=== PATIENT | female | born 1960 | race Caucasian/White ===

== ENCOUNTER 2016-04-30 13:58 | Inpatient (IN) | payer OTHER ==
[~2016-04-30] VITALS: Ht 162.6 cm; Wt 82.0 kg
--- NOTE | 2016-04-30 14:56 | EMERGENCY ROOM VISIT NOTE ---
History Report prepared by Rey: Jaci Metcalf Under the Supervision of: Dr. Arash Gibbs M.D. First contact with patient: 14:32 Chief Complaint: MENTAL HEALTH EVALUATION Stated Complaint: MENTAL HEALTH EVALUATION History of Present Illness The patient is a 55 year old female who presents to the Emergency Room with for worsening aggression starting 1 day [employer]. The patient's mother called police last night and states that the patient was threaten to throw things at her. The mother states that the patient is paranoid and believes that she has been poisoning the patient. The patient states that she currently does not take any medications knowingly but states occasionally she tastes them in her food but does not know how it gets into her food. The patient denies seeing a psychiatrist regularly. The patient denies any suicidal or homicidal ideation. Nursing staff state the patient has been seen for similar symptoms in the past at the ED. The patient denies any other pain or symptoms. 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 Review of Systems See HPI for pertinent positives & negatives. A total of 10 systems reviewed and were otherwise negative. Past Medical & Surgical Medical Problems: (1) Anxiety and depression (2) Diabetes (3) Nicotine dependence (4) Unspecified psychosis Family History Diabetes mellitus Hypertension Social History Smoking Status: Never Smoker Alcohol Use: occasionally Drug Use: none Marital Status: Housing Status: lives with family Occupation Status: disabled Current/Historical Medications No Active Prescriptions or Reported Meds Allergies Coded Allergies: No Known Allergies (Unverified , 06/09/15) Physical Exam Vital Signs Date Time Temp Pulse Resp B/P Pulse Ox O2 Delivery O2 Flow Rate FiO2 04/30/16 16:42 77 18 145/92 99 Room Air 04/30/16 14:01 37.0 76 20 146/88 100 Room Air Physical Exam GENERAL: Patient is a healthy-appearing well-nourished HEAD: Normocephalic atraumatic EYES: Ocular movements intact pupils equal and react to light OROPHARYNX mucous membranes are moist no exudates present no erythema or edema present NECK: Supple no nuchal rigidity CHEST: Good equal expansion LUNGS: Clear and equal to auscultation CARDIAC: Normal S1 and S2 ABDOMEN: Soft nontender no guarding BACK: No CVA tenderness EXTREMITIES: No pain upon palpation normal muscle strength in all groups no clubbing cyanosis or edema NEURO: Patient is following commands is answering questions appropriately. Alert and oriented x3 Cranial Nerves 2-12 grossly intact Psych: Acutely paranoid. Medical Decision & Procedures Laboratory Results 04/30/16 15:05 Red Blood Count 4.99, Mean Corpuscular Volume 90.8, Mean Corpuscular Hemoglobin 32.5, Mean Corpuscular Hemoglobin Concent 35.8, Mean Platelet Volume 11.2, Neutrophils (%) (Auto) 59.9, Lymphocytes (%) (Auto) 31.5, Monocytes (%) (Auto) 6.2, Eosinophils (%) (Auto) 1.0, Basophils (%) (Auto) 0.7, Neutrophils # (Auto) 3.65, Lymphocytes # (Auto) 1.92, Monocytes # (Auto) 0.38, Eosinophils # (Auto) 0.06, Basophils # (Auto) 0.04 04/30/16 15:05 Test 04/30/16 14:44 04/30/16 15:05 Urine Color DK YELLOW Urine Appearance CLEAR (CLEAR) Urine pH 5.5 (4.5-7.5) Urine Specific [place] 1.027 (1.000-1.030) Urine Protein TRACE (NEG) Urine Glucose (UA) NEG (NEG) Urine Ketones TRACE (NEG) Urine Occult Blood 1+ (NEG) Urine Nitrite NEG (NEG) Urine Bilirubin NEG (NEG) Urine Urobilinogen NEG (NEG) Urine Leukocyte Esterase NEG (NEG) Urine WBC (Auto) 1-5 /hpf (0-5) Urine RBC (Auto) 5-10 /hpf (0-4) Urine Hyaline Casts (Auto) 5-10 /lpf (0-5) Urine Epithelial Cells (Auto) >30 /lpf (0-5) Urine Bacteria (Auto) 1+ (NEG) Urine Opiates Screen NEG (NEG) Urine Methadone, Qualitative NEG (NEG) Urine Barbiturates NEG (NEG) Urine Phencyclidine (PCP) Level NEG (NEG) Ur Amphetamine/Methamphetamine NEG (NEG) MDMA (Ecstasy) Screen NEG (NEG) Urine Benzodiazepines Screen NEG (NEG) Urine Cocaine Metabolite NEG (NEG) Urine Marijuana (THC) NEG (NEG) White Blood Count 6.09 K/uL (4.8-10.8) Red Blood Count 4.99 M/uL (4.2-5.4) Hemoglobin 16.2 g/dL (12.0-16.0) Hematocrit 45.3 % (37-47) Mean Corpuscular Volume 90.8 fL (80-100) Mean Corpuscular Hemoglobin 32.5 pg (25-34) Mean Corpuscular Hemoglobin Concent 35.8 g/dl (32-36) Platelet Count 223 K/uL (130-400) Mean Platelet Volume 11.2 fL (7.4-10.4) Neutrophils (%) (Auto) 59.9 % Lymphocytes (%) (Auto) 31.5 % Monocytes (%) (Auto) 6.2 % Eosinophils (%) (Auto) 1.0 % Basophils (%) (Auto) 0.7 % Neutrophils # (Auto) 3.65 K/uL (1.4-6.5) Lymphocytes # (Auto) 1.92 K/uL (1.2-3.4) Monocytes # (Auto) 0.38 K/uL (0.11-0.59) Eosinophils # (Auto) 0.06 K/uL (0-0.5) Basophils # (Auto) 0.04 K/uL (0-0.2) RDW Standard Deviation 42.5 fL (36.4-46.3) RDW Coefficient of Variation 12.9 % (11.5-14.5) Immature Granulocyte % (Auto) 0.7 % Immature Granulocyte # (Auto) 0.04 K/uL (0.00-0.02) Anion Gap 6.0 mmol/L (3-11) Est Creatinine Clear Calc Drug Dose 85.3 ml/min Estimated GFR () 99.1 Estimated GFR (Non- 85.5 BUN/Creatinine Ratio 6.9 (10-20) Calcium Level 8.8 mg/dl (8.5-10.1) Total Bilirubin 0.8 mg/dl (0.2-1) Direct Bilirubin 0.2 mg/dl (0-0.2) Aspartate Amino Transf (AST/SGOT) 18 U/L (15-37) Alanine Aminotransferase (ALT/SGPT) 21 U/L (12-78) Alkaline Phosphatase 63 U/L (45-117) Total Protein 7.7 gm/dl (6.4-8.2) Albumin 4.3 gm/dl (3.4-5.0) Thyroid Stimulating Hormone (TSH) 0.890 uIu/ml (0.300-4.500) Ethyl Alcohol mg/dL < 3.0 mg/dl (0-3) Labs reviewed by ED physician. ED Course 1435: Past medical records reviewed. The patient was evaluated in room A6. A complete history and physical examination was performed. 1554: I spoke the the nurse and the patient is medically cleared for further mental health evaluation. 1707: I reevaluated the patient and she expressed that she was not happy about being evaluated. A bed search for the patient is ongoing. 1758: The patient has been admitted for further evaluation at [address] [place] [address]. Medical Decision Differential diagnosis: Etiologies such as mood disorder, infection, hypoglycemia, electrolyte abnormalities, cardiac sources, intracerebral event, toxicologic, neurologic, as well as others were entertained. This is a 55-year-old female who presents emergency department under a 302 warrant. The patient's mother is concerned that the patient is a danger to herself as well as her mother. The patient's mother is afraid of the patient area upon arrival to the emergency department the patient is acting paranoid and believes that we are going to gas her. I will note that the patient has had multiple visits in the past the emergency department with the same symptoms. Despite being here twice she was sent home and did not pursue outpatient follow-up. Based on these multiple findings I felt that the 302 warrant should be upheld. The case was discussed with case management who is in agreement area and the patient was admitted to [facility]. Patient was medically cleared by me. Impression Primary Impression: Mood disorder Scribe Attestation The scribe's documentation has been prepared under my direction and personally reviewed by me in its entirety. I confirm that the note above accurately reflects all work, treatment, procedures, and medical decision making performed by me. Departure Information Dispostion [facility] Acute Care ([address] [place] [address]) Prescriptions No Active Prescriptions or Reported Meds Referrals Leia Ba, C.R.N.P. (PCP) Patient Instructions My [facility]
[2016-04-30 15:13] LABS: URINE APPEARANCE CLEAR (CLEAR); URINE COLOR DK YELLOW; URINE EPITHELIAL CELL AUTO >30 /lpf (0-5); URINE NITRITE NEG (NEG); URINE PH 5.5 (4.5-7.5); URINE SPECIFIC GRAVITY 1.027 (1.000-1.030); UROBILINOGEN NEG (NEG)
[2016-04-30 15:15] LABS: MANUAL MICROSCOPIC REQUIRED? NO; REVIEW REQ? NO
[2016-04-30 15:16] LABS: URINE BILIRUBIN NEG (NEG)
[2016-04-30 15:31] LABS: BENZODIAZEPINE, URINE NEG (NEG); COCAINE,URINE NEG (NEG); PHENCYCLIDINE, URINE NEG (NEG)
[2016-04-30 15:32] LABS: BUN/CREATININE RATIO 6.9 (10-20); CALCIUM 8.8 mg/dl (8.5-10.1); CREATININE 0.79 mg/dl (0.60-1.20); POTASSIUM 3.5 mmol/L (3.5-5.1)
[2016-04-30 15:43] LABS: THYROID STIMULATING HORMONE 0.89 uIu/ml (0.300-4.500)
[2016-04-30 15:54] LABS: BASO % 0.7 %; BASO ABS # 0.04 K/uL (0-0.2); COMPLETE YES; HEMATOCRIT 45.3 % (37-47); IG% 0.7 %; LYMPH % 31.5 %; LYMPH ABS # 1.92 K/uL (1.2-3.4); MEAN CELL VOLUME 90.8 fL (80-100); MEAN CORPUSCULAR HEMOGLOBIN 32.5 pg (25-34); MEAN CORPUSCULAR HGB CONC 35.8 g/dl (32-36); MEAN PLATELET VOLUME 11.2 fL (7.4-10.4); MONO % 6.2 %; NEUT % 59.9 %; PLATELET COUNT 223 K/uL (130-400); RED BLOOD COUNT 4.99 M/uL (4.2-5.4); WHITE BLOOD COUNT 6.09 K/uL (4.8-10.8)
[2016-04-30 16:42] VITALS: O2SAT 99
[2016-04-30] MEDS ORDERED: BENZTROPINE MESYLATE 0.5 MG TAB PO PRN (17:30)
[2016-04-30] MEDS ORDERED: LORAZEPAM 1 MG TAB PO PRN (17:30)
[2016-04-30] MEDS ORDERED: BISMUTH SUBSALICYLATE PER ML OMNICELL CHARGE PO PRN (17:30)
[2016-04-30] MEDS ORDERED: SODIUM CHLORIDE 0.65% NA SOLN 45 ML (OCEAN) PRN (17:30)
[2016-04-30] MEDS ORDERED: MAGNESIUM HYDROXIDE SUSP 30 ML UDC PO PRN (17:30)
[2016-04-30] MEDS ORDERED: ACETAMINOPHEN 325 MG TAB PO PRN (17:30)
[2016-04-30] MEDS ORDERED: HALOPERIDOL 5 MG TAB PO PRN (17:30)
[2016-04-30] MEDS ORDERED: hydrOXYzine HCL 25 MG TAB PO PRN ×2 (17:30)
[2016-04-30] MEDS ORDERED: ALUMINUM/MAGNESIUM SUSP 30 ML UDC PO PRN (17:30)
[2016-04-30] MEDS ORDERED: NURSING VERBAL MED ORDER ONE (19:30)
[2016-04-30 19:36] VITALS: BP 145/92; PULSE 86; TEMP 37; Ht 162.6 cm; Wt 82.0 kg
[2016-04-30] MEDS: NICOTINE 21 MG/24 HR TDSY EXT SCH ×2 (20:00→21:03)
[2016-04-30] MEDS: NICOTINE POLACRILEX 2 MG GUM MT PRN ×2 (20:01→22:09)
[2016-05-01 06:48] VITALS: BP 141/91; PULSE 80; TEMP 36.9
[2016-05-01] MEDS: NICOTINE 21 MG/24 HR TDSY EXT SCH (09:00)
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
[2016-05-02 06:57] VITALS: BP_SYST 119; BP_SYST 136; BP_DIAS 83; BP_DIAS 84; PULSE 67; PULSE 73; TEMP 36.8
[2016-05-02 07:54] LABS: ESTIMATED AVERAGE GLUCOSE 108 mg/dl; HA1C FLAG Normal (Normal)
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
[2016-05-02] MEDS: NICOTINE 21 MG/24 HR TDSY EXT SCH (09:00)
[2016-05-02] MEDS ORDERED: ARIPIprazole TAB 5 MG TAB PO ONE (12:00)
[2016-05-02] MEDS ORDERED: SERTRALINE HCL 50 MG TAB PO ONE (12:00)
[2016-05-02] MEDS: NICOTINE POLACRILEX 2 MG GUM MT PRN (18:55)
[2016-05-02] MEDS ORDERED: NURSING VERBAL MED ORDER ONE (19:15)
[2016-05-03 06:55] VITALS: BP_SYST 118; BP_SYST 142; BP_DIAS 78; BP_DIAS 88; PULSE 50; PULSE 67; TEMP 36.8
[2016-05-03] MEDS: ARIPIprazole TAB 5 MG TAB PO SCH (07:26)
[2016-05-03] MEDS: SERTRALINE HCL 50 MG TAB PO SCH (07:26)
[2016-05-03] MEDS ORDERED: NICOTINE 21 MG/24 HR TDSY EXT PRN (09:00)
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
--- NOTE | 2016-05-03 15:28 | Medical Student: BHU Only ---
Psychiatric Progress Note Date of Service: May 03, 2016. SUBJECTIVE: Patient is a 55yo female with a h/o anxiety, depression, psychosis and mood disorder on day 3 of hospitalization. Patient appeared suspicious of my motives for interviewing her. When asked if she would mind talking to me, she replied by stating she is not interested in participating on any research or experiments. I assured her I would not be using any information she disclosed towards any research and only wanted to talk to find out how she was doing. Upon asking again if we could talk, she resistantly agreed but insisted we talk in her room instead of relocating to another office. Patient stood for the duration of the conversation while I was sited on her chair. When asked if she could tell me what were the events that took place that led her to this hospitalization, she was hesitant and wanted to know why I was asking. I once again explained that as part of her treatment team, I would like to learn more about her and about how she was doing. For the duration of our short conversation, she did express she did not know whey she is being kept in the hospital since she "didn't commit any crimes" as "yelling is not a crime" and that she "just wants to leave". She states her relationship with her mom is doing well, specially since the passing of her step -father about a year ago. She says evenings are more challenging while living with her mom because "she wants to watch her TV and it gets difficult". She also dislikes when mom walks into her room. She states she alternates between living in [place] with mom and in [place] with ex-. She also has two children, a girl and a boy, and when asked about their age, she states "last time she talked to them they were 26yo and 21yo". Patient seemed inpatient throughout our conversation and persistently asked why I wanted to know about her. She abruptly terminated the conversation by telling me she wanted to work on her homework and could no longer talk. MSE: Appearance is that of a neatly groomed, casually dressed female who appears her stated age. The patient is minimally cooperative with the interview. Eye contact is good. Motor behavior is normal. Speech: normal volume, rate, and tone. Affect: inpatient. Mood: "good". Thought process: goal directed Thought content: suspicious towards my intent. Cognition: not assessed Insight & judgement: not assessed. ASSESSMENT: Patient is a 55yo female with a h/o anxiety, depression, psychosis and mood disorder on day 3 of hospitalization. PLAN: 1. Psychosis: Although patient appears suspicious of my interest in having a conversation, I did not appreciate any signs of delusions, illusions, hallucinations or disorganized thinking/behavior. However, I do feel that the short duration of our conversation did not allow me to proper assess patient. -Plan to continue current medication regimen & reassess tomorrow
[2016-05-04 06:53] VITALS: BP_SYST 123; BP_SYST 142; BP_DIAS 80; BP_DIAS 88; PULSE 62; PULSE 73; TEMP 36.7
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
[2016-05-04] MEDS: ARIPIprazole TAB 5 MG TAB PO SCH (10:04)
[2016-05-04] MEDS: SERTRALINE HCL 50 MG TAB PO SCH (10:05)
[2016-05-04] MEDS: NICOTINE GUM PO PRN (19:32)
[2016-05-05 06:50] VITALS: BP_SYST 118; BP_SYST 119; BP_DIAS 76; BP_DIAS 78; PULSE 58; PULSE 94; TEMP 36.9
[2016-05-05] MEDS: ARIPIprazole TAB 5 MG TAB PO SCH (09:00)
--- NOTE | 2016-05-05 09:14 | Psychiatric Progress Notes ---
Progress Note Date of Service May 05, 2016. Interval History Alison Archibald is a 55-year-old female who currently lives in [place] with her mother, has a history of unknown mental illness with past hospitalization, is not currently in treatment, and was admitted on a 302 involuntary commitment after being brought to the ED by the police on a 302 petition by her mother. Information provided by the patient is considered to be unreliable, and has been poorly cooperative with treatment. Chief Complaint "I'm fine.". Subjective Patient was seen & assessed interval progress reviewed with Treatment Team. The patient says that she is doing "fine" today. She says that she has no problems with her mood, and denies suspiciousness of food or concerns for her safety and asks, "Why?". She has a meeting with her mother today and when asked what she would like to talk with her mother about she says "Coming home, medications, following up.". Alison agrees to see a psychiatrist after discharge and plans to stay in this area with her mother. She denies SI/HI, aud/vis hallucinations. Although she says that her mood is "fine" her affect is flat and not congruent. She has been paranoid with nursing staff, not trusting the nicorette gum and having her mother bring in a box from an outside pharmacy, and also being paranoid that we were going to send her to halfway. She was minimally verbal during our interaction, answering questions but offering no spontaneous conversation. She says that she feels tired on her meds. Review of Systems Constitutional: + fatigue ENT: No dental problems, No hearing loss, No nasal symptoms, No problem reported, No sore throat, No tinnitus, No trouble swallowing, No unusual epistaxis Respiratory: No cough, No dyspnea at rest, No dyspnea on exertion, No hemoptysis, No problem reported, No shortness of breath, No sputum, No wheezing Cardiovascular: No PND, No chest pain, No claudication, No edema, No orthopnea , No palpitations, No problem reported Abdomen: No GI bleeding, No constipation, No diarrhea, No nausea, No pain, No problem reported, No vomiting Musculoskeletal: No calf pain, No joint pain, No muscle pain, No problem reported, No swelling Neurologic: No balance problems, No memory loss, No numbness/tingling, No paralysis, No problem reported, No vertigo, No weakness Psychiatric: + problem reported (guarded, paranoid) Integumentary: No bleeding, No color change, No itch, No new/changing skin lesions, No problem reported, No rash Sleep Information Total Hours of Sleep: 7.00 Meal Information Percent of Breakfast Consumed: 30 Percent of Lunch Consumed: 75 Percent of Dinner Consumed: 75 Mental Status Exam During interview pt is: guarded (Vague and evasive in answering questions, ) Appearance: appropriately dressed, appropriately groomed Eye contact is: good Motor behavior is: no abnormal motor movements Speech: normal in rate, rhythm & volume (minimal, not engaging) Affect: depressed, flat Mood is: other ("fine") Thought process: goal directed Thought content: paranoid Suicidal thought are: denied Homicidal thoughts are: denied Hallucinations: denies auditory, denies visual Cognition: other (memory and attention impaired - asks the same questions over and over and does not process new information) Intelligence estimated to be: average Insight: severely impaired Judgement: severely impaired Impression The patient remains paranoid, guarded. There is high suspicion that she is minimizing her symptoms in order to be discharged sooner. Family meeting with mother today at 0900. Due to fatigue will try moving Abilify to . She says that her mood is "fine" but clearly is affectively flat and has been seen to be tearful at times. She does not want medication adjustments. Continued Inpatient Care The patient requires inpatient care due to the severity of her condition and inability to manipulate information in a reality based manner. Plan (1) Unspecified psychosis 05/01--The patient is admitted to [facility] ([facility]) on q 15 min checks (behavioral with suicide precautions) for safety as well as elopement precautions. The patient will participate in group, recreational and milieu therapies and will be offered additional individual and family sessions as clinically appropriate. She is clearly in need of antipsychotic medication as she is unable to care for self outside of the hospital and not eating food regularly at home due to fears of contamination, she is acutely paranoid and will not improve without forced antipsychotic medications. We will continue to monitor and I will ask Dr. Sosa to provide a second psychiatric opinion re: forced meds as it is my opinion that or serious disability would occur within the next 30 days without intervention of inpatient hospitalization and antipsychotic medication such as Risperdal PO Mtab or Haldol IM. will attempt metabolic screening labs in the am she is very likely to require 303 commitment 05/02 -Today, the patient states willingness to resume sertraline and aripiprazole, which she states were previously helpful for her. Will start sertraline 50 mg every morning and aripiprazole 5 mg every morning. Fasting labs done today and lipids and glucose were normal. Hemoglobin A1c is normal at 5.4. -Would like to get records from her outpatient psychiatrist in [place], but she states she cannot recall his name. Will ask staff to ask mother to look at her medication bottles to clarify the name of her outpatient provider. -Patient is willing for a family meeting with mother. -Patient is unwilling to take antipsychotic medication, will file for a 303 commitment and pursue medications over objection, as she has significant psychotic symptoms that are impairing her ability to participate in treatment and move towards discharge. -Continue medically necessary private room due to significant psychosis and recent agitation. Continue elopement precautions. 05/03 -Refused meds yesterday, and took today but question of cheeking. Will file for 303, as refusing to allow contact with mother or OP records to clarify diagnosis or past treatment, remains psychotic (disorganized, paranoid, suspicious), and this is affecting her ability to care for herself and make decisions about her care. -Reports psychiatrist in [place] is Dr. Zander Roa, but won't sign an SULEIMAN. -Again offered SULEIMAN for mother and reviewed recommendation for meeting with her, but patient continues to refuse to sign it. 05/04 -303 granted. -Continue aripiprazole 5mg daily (refusing to increase dose) and sertraline 50mg daily (reports diarrhea so will wait until resolved to increase dose). -Signed SULEIMAN for OP psychiatrist in [place], so will request records. -Signed SULEIMAN for mother, so will schedule meeting. -Will need local OP therapist and psychiatrist. -Will d/c [facility] and attempt to place patient with a roommate, while monitoring for worsening psychosis/paranoia. 05/05 - Change Abilify to HS due to complaints of fatigue - Family meeting with mother today. (2) Diabetes HGBA1C normal at 5.4 (ave glucose 108). (3) Nicotine dependence readdress cessation when psychosis improved, she is currently refusing ordered nicotine replacement. 05/02--Refusing nicotine cessation education, but has patch and gun ordered prn, and has accepted gum for cravings. (4) Alcohol abuse Rule out alcohol abuse, as mother reports she drinks excessively at times with worsening agitation, although unable to quantify frequency or quantity of use. Discharge / Aftercare Planning Psychiatrist: Name: n/a Therapist: Name: did see Dr. Hook Stablehand: Name: arjunk. Visit Code E&M Code: 79808 Inventory Assets Strengths: supportive mother, resourceful Needs: ongoing involuntary commitment for safety and ultimately antipsychotic medications Risk Factors Assessment : Yes /single/: Yes Access to guns: No (Not at mother's house.) Health problems: No Mental Health Diagnoses: Yes Previous psychiatric stay: Yes Smoker: Yes Protective Factors Assessment : No Responsible for young children: No Employed: No Stable relationships: No Supportive family: Yes Data Vital Signs Last 24 Hrs: Date Time Temp Pulse Resp B/P Pulse Ox O2 Delivery O2 Flow Rate FiO2 05/05/16 06:50 36.9 58 15 119/78 94 118/76 Meds Administered Last 24 Hrs: Meds Administered (Past 24Hrs) Medications (Trade) Dose Ordered Sig/Gretchen Route Start Time Stop Time Status Last Admin Dose Admin Sertraline HCl (Zoloft Tab) 50 mg QAM PO 05/03/16 09:00 06/02/16 08:59 05/04/16 10:05 50 MG Aripiprazole (Abilify Tab) 5 mg QAM PO 05/03/16 09:00 06/02/16 08:59 05/04/16 10:04 5 MG Lab Results Last 24 Hrs: 04/30/16 15:05 Red Blood Count 4.99, Mean Corpuscular Volume 90.8, Mean Corpuscular Hemoglobin 32.5, Mean Corpuscular Hemoglobin Concent 35.8, Mean Platelet Volume 11.2, Neutrophils (%) (Auto) 59.9, Lymphocytes (%) (Auto) 31.5, Monocytes (%) (Auto) 6.2, Eosinophils (%) (Auto) 1.0, Basophils (%) (Auto) 0.7, Neutrophils # (Auto) 3.65, Lymphocytes # (Auto) 1.92, Monocytes # (Auto) 0.38, Eosinophils # (Auto) 0.06, Basophils # (Auto) 0.04 04/30/16 15:05 05/02/16 07:26 Test 04/30/16 14:44 04/30/16 15:05 05/02/16 07:26 Urine Color DK YELLOW Urine Appearance CLEAR (CLEAR) Urine pH 5.5 (4.5-7.5) Urine Specific [place] 1.027 (1.000-1.030) Urine Protein TRACE (NEG) Urine Glucose (UA) NEG (NEG) Urine Ketones TRACE (NEG) Urine Occult Blood 1+ (NEG) Urine Nitrite NEG (NEG) Urine Bilirubin NEG (NEG) Urine Urobilinogen NEG (NEG) Urine Leukocyte Esterase NEG (NEG) Urine WBC (Auto) 1-5 /hpf (0-5) Urine RBC (Auto) 5-10 /hpf (0-4) Urine Hyaline Casts (Auto) 5-10 /lpf (0-5) Urine Epithelial Cells (Auto) >30 /lpf (0-5) Urine Bacteria (Auto) 1+ (NEG) Urine Opiates Screen NEG (NEG) Urine Methadone, Qualitative NEG (NEG) Urine Barbiturates NEG (NEG) Urine Phencyclidine (PCP) Level NEG (NEG) Ur Amphetamine/Methamphetamine NEG (NEG) MDMA (Ecstasy) Screen NEG (NEG) Urine Benzodiazepines Screen NEG (NEG) Urine Cocaine Metabolite NEG (NEG) Urine Marijuana (THC) NEG (NEG) White Blood Count 6.09 K/uL (4.8-10.8) Red Blood Count 4.99 M/uL (4.2-5.4) Hemoglobin 16.2 g/dL (12.0-16.0) Hematocrit 45.3 % (37-47) Mean Corpuscular Volume 90.8 fL (80-100) Mean Corpuscular Hemoglobin 32.5 pg (25-34) Mean Corpuscular Hemoglobin Concent 35.8 g/dl (32-36) Platelet Count 223 K/uL (130-400) Mean Platelet Volume 11.2 fL (7.4-10.4) Neutrophils (%) (Auto) 59.9 % Lymphocytes (%) (Auto) 31.5 % Monocytes (%) (Auto) 6.2 % Eosinophils (%) (Auto) 1.0 % Basophils (%) (Auto) 0.7 % Neutrophils # (Auto) 3.65 K/uL (1.4-6.5) Lymphocytes # (Auto) 1.92 K/uL (1.2-3.4) Monocytes # (Auto) 0.38 K/uL (0.11-0.59) Eosinophils # (Auto) 0.06 K/uL (0-0.5) Basophils # (Auto) 0.04 K/uL (0-0.2) RDW Standard Deviation 42.5 fL (36.4-46.3) RDW Coefficient of Variation 12.9 % (11.5-14.5) Immature Granulocyte % (Auto) 0.7 % Immature Granulocyte # (Auto) 0.04 K/uL (0.00-0.02) Anion Gap 6.0 mmol/L (3-11) Est Creatinine Clear Calc Drug Dose 85.3 ml/min Estimated GFR () 99.1 Estimated GFR (Non- 85.5 BUN/Creatinine Ratio 6.9 (10-20) Calcium Level 8.8 mg/dl (8.5-10.1) Total Bilirubin 0.8 mg/dl (0.2-1) Direct Bilirubin 0.2 mg/dl (0-0.2) Aspartate Amino Transf (AST/SGOT) 18 U/L (15-37) Alanine Aminotransferase (ALT/SGPT) 21 U/L (12-78) Alkaline Phosphatase 63 U/L (45-117) Total Protein 7.7 gm/dl (6.4-8.2) Albumin 4.3 gm/dl (3.4-5.0) Thyroid Stimulating Hormone (TSH) 0.890 uIu/ml (0.300-4.500) Ethyl Alcohol mg/dL < 3.0 mg/dl (0-3) Estimated Average Glucose 108 mg/dl Hemoglobin A1c 5.4 % (4.5-5.6) Triglycerides Level 76 mg/dl (0-150) Cholesterol Level 200 mg/dl (0-200) HDL Cholesterol 66 mg/dl LDL Cholesterol, Calculated 119 mg/dl VLDL Cholesterol, Calculated 15 mg/dl Cholesterol/HDL Ratio 3.0
[2016-05-05] MEDS: SERTRALINE HCL 50 MG TAB PO SCH (10:03)
[2016-05-06] MEDS: SERTRALINE HCL 50 MG TAB PO SCH (09:48)
[2016-05-06] MEDS ORDERED: ARIPIprazole TAB 5 MG TAB PO ONE (10:00)
--- NOTE | 2016-05-06 10:06 | Psychiatric Progress Notes ---
Progress Note Date of Service May 06, 2016. Interval History Alison Archibald is a 55-year-old female who currently lives in [place] with her mother, has a history of unknown mental illness with past hospitalization, is not currently in treatment, and was admitted on a 302 involuntary commitment after being brought to the ED by the police on a 302 petition by her mother. Information provided by the patient is considered to be unreliable, and has been poorly cooperative with treatment. Chief Complaint "Fine.". Subjective Patient was seen & assessed interval progress reviewed with Treatment Team. Alison says that she is "fine" again, repeating that she has been so for days. When asked if she had further concerns about the safety of her food she says no , and says that she was not concerned about all of her food, only "the stuff that looked bad". I inquire about her concerns about the nicotine gum (had her mother bring some in not trusting the hospital's) and she says that she wasn't able to read the package insert and so was concerned about how they got the nicotine in the gum. She asks when she can go home, and I share the estimated length of stay and we discuss treatment goals. She asks if she is doing "OK in the classes" and asks why the manager group home isn't writing more under her name and she sees the leader writing more under others' names. I encourage her to reality check this if she has concerns about it. She denies SI/HI or mood problems. I reflect to her that her affect does not necessarily match her stated mood, and she says that she and her sister never smile much and were always told to smile for pictures when they thought that they were. She denies aud/vis hallucinations. She reports ongoing diarrhea. Review of Systems Constitutional: + fatigue ENT: No dental problems, No hearing loss, No nasal symptoms, No problem reported, No sore throat, No tinnitus, No trouble swallowing, No unusual epistaxis Respiratory: No cough, No dyspnea at rest, No dyspnea on exertion, No hemoptysis, No problem reported, No shortness of breath, No sputum, No wheezing Cardiovascular: No PND, No chest pain, No claudication, No edema, No orthopnea , No palpitations, No problem reported Abdomen: + diarrhea Musculoskeletal: No calf pain, No joint pain, No muscle pain, No problem reported, No swelling Neurologic: No balance problems, No memory loss, No numbness/tingling, No paralysis, No problem reported, No vertigo, No weakness Psychiatric: + problem reported (denies mood problems, but is affectively flat and suspicious) Integumentary: No bleeding, No color change, No itch, No new/changing skin lesions, No problem reported, No rash Sleep Information Total Hours of Sleep: 6.75 Meal Information Percent of Breakfast Consumed: 30 Percent of Lunch Consumed: 40 Percent of Dinner Consumed: 75 Mental Status Exam During interview pt is: alert and oriented, guarded (Vague and evasive in answering questions, ) Appearance: appropriately dressed, appropriately groomed Eye contact is: good Motor behavior is: no abnormal motor movements Speech: normal in rate, rhythm & volume (minimal, not engaging) Affect: depressed, flat Mood is: other ("fine") Thought process: goal directed Thought content: paranoid Suicidal thought are: denied Homicidal thoughts are: denied Hallucinations: denies auditory, denies visual Cognition: other (memory and attention impaired - asks the same questions over and over and does not process new information) Intelligence estimated to be: average Insight: severely impaired Judgement: severely impaired Impression The patient remains paranoid, guarded. There is high suspicion that she is minimizing her symptoms in order to be discharged sooner. Family meeting yesterday went well, mother is willing to have her return to her home. Patient agreed to case management during the meeting but during phone interview for these services, she declined them, and so we remain concerned that she is agreeing to see a psychiatrist and therapist, but will not follow through. Will continue current meds. She does not want more Abilify. Will not escalate Zoloft dose due to diarrhea Continued Inpatient Care The patient requires inpatient care due to the severity of her condition and inability to manipulate information in a reality based manner. Plan (1) Unspecified psychosis 05/01--The patient is admitted to [facility]) on q 15 min checks (behavioral with suicide precautions) for safety as well as elopement precautions. The patient will participate in group, recreational and milieu therapies and will be offered additional individual and family sessions as clinically appropriate. She is clearly in need of antipsychotic medication as she is unable to care for self outside of the hospital and not eating food regularly at home due to fears of contamination, she is acutely paranoid and will not improve without forced antipsychotic medications. We will continue to monitor and I will ask Dr. Sosa to provide a second psychiatric opinion re: forced meds as it is my opinion that or serious disability would occur within the next 30 days without intervention of inpatient hospitalization and antipsychotic medication such as Risperdal PO Mtab or Haldol IM. will attempt metabolic screening labs in the am she is very likely to require 303 commitment 05/02 -Today, the patient states willingness to resume sertraline and aripiprazole, which she states were previously helpful for her. Will start sertraline 50 mg every morning and aripiprazole 5 mg every morning. Fasting labs done today and lipids and glucose were normal. Hemoglobin A1c is normal at 5.4. -Would like to get records from her outpatient psychiatrist in [place], but she states she cannot recall his name. Will ask staff to ask mother to look at her medication bottles to clarify the name of her outpatient provider. -Patient is willing for a family meeting with mother. -Patient is unwilling to take antipsychotic medication, will file for a 303 commitment and pursue medications over objection, as she has significant psychotic symptoms that are impairing her ability to participate in treatment and move towards discharge. -Continue medically necessary private room due to significant psychosis and recent agitation. Continue elopement precautions. 05/03 -Refused meds yesterday, and took today but question of cheeking. Will file for 303, as refusing to allow contact with mother or OP records to clarify diagnosis or past treatment, remains psychotic (disorganized, paranoid, suspicious), and this is affecting her ability to care for herself and make decisions about her care. -Reports psychiatrist in [place] is Dr. Zander Roa, but won't sign an SULEIMAN. -Again offered SULEIMAN for mother and reviewed recommendation for meeting with her, but patient continues to refuse to sign it. 05/04 -303 granted. -Continue aripiprazole 5mg daily (refusing to increase dose) and sertraline 50mg daily (reports diarrhea so will wait until resolved to increase dose). -Signed SULEIMAN for OP psychiatrist in [place], so will request records. -Signed SULEIMAN for mother, so will schedule meeting. -Will need local OP therapist and psychiatrist. -Will d/c [facility] and attempt to place patient with a roommate, while monitoring for worsening psychosis/paranoia. 05/05 - Change Abilify to HS due to complaints of fatigue - Family meeting with mother today. 05/06 - Encourage the patient to reality check - Continue current meds. - Remains on 303 (2) Diabetes HGBA1C normal at 5.4 (ave glucose 108). (3) Nicotine dependence readdress cessation when psychosis improved, she is currently refusing ordered nicotine replacement. 05/02--Refusing nicotine cessation education, but has patch and gun ordered prn, and has accepted gum for cravings. (4) Alcohol abuse Rule out alcohol abuse, as mother reports she drinks excessively at times with worsening agitation, although unable to quantify frequency or quantity of use. Discharge / Aftercare Planning Psychiatrist: Name: n/a Therapist: Name: chaitanya see Dr. Hook Materials Management Supervisor: Name: paulette. Visit Code E&M Code: 41855 Inventory Assets Strengths: supportive mother, resourceful Needs: ongoing involuntary commitment for safety and ultimately antipsychotic medications Risk Factors Assessment : Yes /single/: Yes Access to guns: No (Not at mother's house.) Health problems: No Mental Health Diagnoses: Yes Previous psychiatric stay: Yes Smoker: Yes Protective Factors Assessment : No Responsible for young children: No Employed: No Stable relationships: No Supportive family: Yes Data Vital Signs Last 24 Hrs: Last Vital Signs Documentation Date Time Temp Pulse Resp B/P Pulse Ox O2 Delivery O2 Flow Rate FiO2 05/05/16 06:50 36.9 58 15 119/78 94 118/76 04/30/16 16:42 99 Room Air Meds Administered Last 24 Hrs: Current Inpatient Medications Medications (Trade) Dose Ordered Sig/Gretchen Route Start Time Stop Time Status Last Admin Dose Admin Acetaminophen (Tylenol Tab) 650 mg Q4H PRN PO 04/30/16 17:30 05/30/16 17:29 Bismuth Subsalicylate (Kaopectate Liqd) 15 ml PRN PRN PO 04/30/16 17:30 05/30/16 17:29 Al Hydroxide/Mg Hydroxide (Maalox Susp) 30 ml Q4H PRN PO 04/30/16 17:30 05/30/16 17:29 Magnesium Hydroxide (Milk Of Magnesia Susp) 30 ml DAILY PRN PO 04/30/16 17:30 05/30/16 17:29 Sodium Chloride (Coffee Nasal [place]) PRN PRN NA 04/30/16 17:30 05/30/16 17:29 Hydroxyzine HCl (Vistaril Tab) 50 mg HSZ PRN PO 04/30/16 17:30 05/30/16 17:29 Hydroxyzine HCl (Vistaril Tab) 25 mg Q4H PRN PO 04/30/16 17:30 05/30/16 17:29 Haloperidol (Haldol Tab) 5 mg Q6HWA PRN PO 04/30/16 17:30 05/30/16 17:29 Benztropine Mesylate (Cogentin Tab) 0.5 mg Q6 PRN PO 04/30/16 17:30 05/30/16 17:29 Lorazepam (Ativan Tab) 1 mg Q6 PRN PO 04/30/16 17:30 05/30/16 17:29 Miscellaneous (Remove Nicoderm Patch) 1 ea DAILY@2100 N/A 05/01/16 21:00 05/31/16 20:59 Sertraline HCl (Zoloft Tab) 50 mg QAM PO 05/03/16 09:00 06/02/16 08:59 05/05/16 10:03 50 MG Nicotine (Nicoderm Cq 21MG Patch) 1 patch QAM PRN EXT 05/03/16 09:00 06/02/16 08:59 Non-Formulary Medication (Non-Formulary Patient'S Own Med) 1 ea Q2H PRN PO 05/02/16 19:45 06/01/16 19:44 05/04/16 19:32 1 EA Aripiprazole (Abilify Tab) 5 mg HS PO 05/06/16 22:00 06/05/16 21:59 Aripiprazole (Abilify Tab) 2.5 mg TODAY@1000 ONCE PO 05/06/16 10:00 05/06/16 10:01 Lab Results Last 24 Hrs: 04/30/16 15:05 Red Blood Count 4.99, Mean Corpuscular Volume 90.8, Mean Corpuscular Hemoglobin 32.5, Mean Corpuscular Hemoglobin Concent 35.8, Mean Platelet Volume 11.2, Neutrophils (%) (Auto) 59.9, Lymphocytes (%) (Auto) 31.5, Monocytes (%) (Auto) 6.2, Eosinophils (%) (Auto) 1.0, Basophils (%) (Auto) 0.7, Neutrophils # (Auto) 3.65, Lymphocytes # (Auto) 1.92, Monocytes # (Auto) 0.38, Eosinophils # (Auto) 0.06, Basophils # (Auto) 0.04 04/30/16 15:05 05/02/16 07:26 Test 04/30/16 14:44 04/30/16 15:05 05/02/16 07:26 Urine Color DK YELLOW Urine Appearance CLEAR (CLEAR) Urine pH 5.5 (4.5-7.5) Urine Specific [place] 1.027 (1.000-1.030) Urine Protein TRACE (NEG) Urine Glucose (UA) NEG (NEG) Urine Ketones TRACE (NEG) Urine Occult Blood 1+ (NEG) Urine Nitrite NEG (NEG) Urine Bilirubin NEG (NEG) Urine Urobilinogen NEG (NEG) Urine Leukocyte Esterase NEG (NEG) Urine WBC (Auto) 1-5 /hpf (0-5) Urine RBC (Auto) 5-10 /hpf (0-4) Urine Hyaline Casts (Auto) 5-10 /lpf (0-5) Urine Epithelial Cells (Auto) >30 /lpf (0-5) Urine Bacteria (Auto) 1+ (NEG) Urine Opiates Screen NEG (NEG) Urine Methadone, Qualitative NEG (NEG) Urine Barbiturates NEG (NEG) Urine Phencyclidine (PCP) Level NEG (NEG) Ur Amphetamine/Methamphetamine NEG (NEG) MDMA (Ecstasy) Screen NEG (NEG) Urine Benzodiazepines Screen NEG (NEG) Urine Cocaine Metabolite NEG (NEG) Urine Marijuana (THC) NEG (NEG) White Blood Count 6.09 K/uL (4.8-10.8) Red Blood Count 4.99 M/uL (4.2-5.4) Hemoglobin 16.2 g/dL (12.0-16.0) Hematocrit 45.3 % (37-47) Mean Corpuscular Volume 90.8 fL (80-100) Mean Corpuscular Hemoglobin 32.5 pg (25-34) Mean Corpuscular Hemoglobin Concent 35.8 g/dl (32-36) Platelet Count 223 K/uL (130-400) Mean Platelet Volume 11.2 fL (7.4-10.4) Neutrophils (%) (Auto) 59.9 % Lymphocytes (%) (Auto) 31.5 % Monocytes (%) (Auto) 6.2 % Eosinophils (%) (Auto) 1.0 % Basophils (%) (Auto) 0.7 % Neutrophils # (Auto) 3.65 K/uL (1.4-6.5) Lymphocytes # (Auto) 1.92 K/uL (1.2-3.4) Monocytes # (Auto) 0.38 K/uL (0.11-0.59) Eosinophils # (Auto) 0.06 K/uL (0-0.5) Basophils # (Auto) 0.04 K/uL (0-0.2) RDW Standard Deviation 42.5 fL (36.4-46.3) RDW Coefficient of Variation 12.9 % (11.5-14.5) Immature Granulocyte % (Auto) 0.7 % Immature Granulocyte # (Auto) 0.04 K/uL (0.00-0.02) Anion Gap 6.0 mmol/L (3-11) Est Creatinine Clear Calc Drug Dose 85.3 ml/min Estimated GFR () 99.1 Estimated GFR (Non- 85.5 BUN/Creatinine Ratio 6.9 (10-20) Calcium Level 8.8 mg/dl (8.5-10.1) Total Bilirubin 0.8 mg/dl (0.2-1) Direct Bilirubin 0.2 mg/dl (0-0.2) Aspartate Amino Transf (AST/SGOT) 18 U/L (15-37) Alanine Aminotransferase (ALT/SGPT) 21 U/L (12-78) Alkaline Phosphatase 63 U/L (45-117) Total Protein 7.7 gm/dl (6.4-8.2) Albumin 4.3 gm/dl (3.4-5.0) Thyroid Stimulating Hormone (TSH) 0.890 uIu/ml (0.300-4.500) Ethyl Alcohol mg/dL < 3.0 mg/dl (0-3) Estimated Average Glucose 108 mg/dl Hemoglobin A1c 5.4 % (4.5-5.6) Triglycerides Level 76 mg/dl (0-150) Cholesterol Level 200 mg/dl (0-200) HDL Cholesterol 66 mg/dl LDL Cholesterol, Calculated 119 mg/dl VLDL Cholesterol, Calculated 15 mg/dl Cholesterol/HDL Ratio 3.0
[2016-05-06] MEDS: ARIPIprazole TAB 5 MG TAB PO SCH (21:43)
[2016-05-07 06:48] VITALS: BP_SYST 123; BP_SYST 124; BP_DIAS 78; BP_DIAS 79; PULSE 54; PULSE 68
[2016-05-07] MEDS: SERTRALINE HCL 50 MG TAB PO SCH (08:43)
--- NOTE | 2016-05-07 10:31 | Psych Management Progress Note ---
Psychiatry Miscellaneous Date of Service: May 07, 2016. Patient seen, MS assessed. Rates mood as 8 and calm. Voiced understanding of treatment plan but remains quite focussed on discharge.
--- NOTE | 2016-05-07 11:19 | Psychiatric Progress Notes ---
Progress Note Date of Service May 07, 2016. Interval History Alison Archibald is a 55-year-old female who currently lives in [place] with her mother, has a history of unknown mental illness with past hospitalization, is not currently in treatment, and was admitted on a 302 involuntary commitment after being brought to the ED by the police on a 302 petition by her mother. Information provided by the patient is considered to be unreliable, and has been poorly cooperative with treatment. Chief Complaint "Fine". Subjective Patient was seen & assessed interval progress reviewed with Treatment Team. The patient says that she is doing fine. She was happy to have access to her tweezers to pull facial hair yesterday. Her mood is "fine" and today is able to smile mildly during the interview. She continues to deny paranoia or suspiciousness, but nursing reports that she got upset yesterday when this was mentioned by staff. She has been having visits from her mother and tolerating them. She denies aus/vis hallucinations, and remains focused on discharge. She would like to go on Monday, but the discussion has been that we will re- evaluate on Monday, with likely discharge sometime next week. Review of Systems Constitutional: + fatigue ENT: No dental problems, No hearing loss, No nasal symptoms, No problem reported, No sore throat, No tinnitus, No trouble swallowing, No unusual epistaxis Respiratory: No cough, No dyspnea at rest, No dyspnea on exertion, No hemoptysis, No problem reported, No shortness of breath, No sputum, No wheezing Cardiovascular: No PND, No chest pain, No claudication, No edema, No orthopnea , No palpitations, No problem reported Abdomen: No GI bleeding, No constipation, No diarrhea, No nausea, No pain, No problem reported, No vomiting Musculoskeletal: No calf pain, No joint pain, No muscle pain, No problem reported, No swelling Neurologic: No balance problems, No memory loss, No numbness/tingling, No paralysis, No problem reported, No vertigo, No weakness Psychiatric: + problem reported (Denies depression, paranoia) Integumentary: No bleeding, No color change, No itch, No new/changing skin lesions, No problem reported, No rash Sleep Information Total Hours of Sleep: 7.00 Meal Information Percent of Breakfast Consumed: 100 Percent of Lunch Consumed: 70 Percent of Dinner Consumed: 90 Mental Status Exam During interview pt is: alert and oriented, guarded (Vague and evasive in answering questions, ) Appearance: appropriately dressed, appropriately groomed Eye contact is: good Motor behavior is: no abnormal motor movements Speech: normal in rate, rhythm & volume (minimal, not engaging) Affect: depressed, flat Mood is: other ("fine") Thought process: goal directed Thought content: paranoid Suicidal thought are: denied Homicidal thoughts are: denied Hallucinations: denies auditory, denies visual Cognition: other (memory and attention impaired - asks the same questions over and over and does not process new information) Intelligence estimated to be: average Insight: impaired Judgement: impaired Impression The patient remains guarded, with minimal answers to all questions. There is high suspicion that she is minimizing her symptoms in order to be discharged sooner. She has been taking her meds, and has been appropriate in the milieu and with mother's visits. She continues to request discharge and says that she will follow up as an OP. i would like to see that she can remain appropriate and without overt evidence of paranoia for a few more days before considering discharge. Continued Inpatient Care The patient requires inpatient care due to the severity of her condition and inability to manipulate information in a reality based manner. Plan (1) Unspecified psychosis 05/01--The patient is admitted to [facility] ([facility]) on q 15 min checks (behavioral with suicide precautions) for safety as well as elopement precautions. The patient will participate in group, recreational and milieu therapies and will be offered additional individual and family sessions as clinically appropriate. She is clearly in need of antipsychotic medication as she is unable to care for self outside of the hospital and not eating food regularly at home due to fears of contamination, she is acutely paranoid and will not improve without forced antipsychotic medications. We will continue to monitor and I will ask Dr. Sosa to provide a second psychiatric opinion re: forced meds as it is my opinion that or serious disability would occur within the next 30 days without intervention of inpatient hospitalization and antipsychotic medication such as Risperdal PO Mtab or Haldol IM. will attempt metabolic screening labs in the am she is very likely to require 303 commitment 05/02 -Today, the patient states willingness to resume sertraline and aripiprazole, which she states were previously helpful for her. Will start sertraline 50 mg every morning and aripiprazole 5 mg every morning. Fasting labs done today and lipids and glucose were normal. Hemoglobin A1c is normal at 5.4. -Would like to get records from her outpatient psychiatrist in [place], but she states she cannot recall his name. Will ask staff to ask mother to look at her medication bottles to clarify the name of her outpatient provider. -Patient is willing for a family meeting with mother. -Patient is unwilling to take antipsychotic medication, will file for a 303 commitment and pursue medications over objection, as she has significant psychotic symptoms that are impairing her ability to participate in treatment and move towards discharge. -Continue medically necessary private room due to significant psychosis and recent agitation. Continue elopement precautions. 05/03 -Refused meds yesterday, and took today but question of cheeking. Will file for 303, as refusing to allow contact with mother or OP records to clarify diagnosis or past treatment, remains psychotic (disorganized, paranoid, suspicious), and this is affecting her ability to care for herself and make decisions about her care. -Reports psychiatrist in [place] is Dr. Zander Roa, but won't sign an SULEIMAN. -Again offered SULEIMAN for mother and reviewed recommendation for meeting with her, but patient continues to refuse to sign it. 05/04 -303 granted. -Continue aripiprazole 5mg daily (refusing to increase dose) and sertraline 50mg daily (reports diarrhea so will wait until resolved to increase dose). -Signed SULEIMAN for OP psychiatrist in [place], so will request records. -Signed SULEIMAN for mother, so will schedule meeting. -Will need local OP therapist and psychiatrist. -Will d/c [facility] and attempt to place patient with a roommate, while monitoring for worsening psychosis/paranoia. 05/05 - Change Abilify to HS due to complaints of fatigue - Family meeting with mother today. 05/06 - Encourage the patient to reality check - Continue current meds. - Remains on 303 05/07 - Continue current plan (2) Diabetes HGBA1C normal at 5.4 (ave glucose 108). (3) Nicotine dependence readdress cessation when psychosis improved, she is currently refusing ordered nicotine replacement. 05/02--Refusing nicotine cessation education, but has patch and gun ordered prn, and has accepted gum for cravings. (4) Alcohol abuse Rule out alcohol abuse, as mother reports she drinks excessively at times with worsening agitation, although unable to quantify frequency or quantity of use. Discharge / Aftercare Planning Psychiatrist: Name: You will be assigned a psychiatrist after your intake appointment Therapist: Name: [facility] Mayda Date of Appointment: May 23, 2016 Wood Molder: Name: paulette. Visit Code E&M Code: 02226 Inventory Assets Strengths: supportive mother, resourceful Needs: ongoing involuntary commitment for safety and ultimately antipsychotic medications Risk Factors Assessment : Yes /single/: Yes Access to guns: No (Not at mother's house.) Health problems: No Mental Health Diagnoses: Yes Previous psychiatric stay: Yes Smoker: Yes Protective Factors Assessment : No Responsible for young children: No Employed: No Stable relationships: No Supportive family: Yes Data Vital Signs Last 24 Hrs: Date Time Temp Pulse Resp B/P Pulse Ox O2 Delivery O2 Flow Rate FiO2 05/07/16 06:48 54 16 123/78 68 124/79 Meds Administered Last 24 Hrs: Meds Administered (Past 24Hrs) Medications (Trade) Dose Ordered Sig/Gretchen Route Start Time Stop Time Status Last Admin Dose Admin Aripiprazole (Abilify Tab) 5 mg HS PO 05/06/16 22:00 06/05/16 21:59 05/06/16 21:43 5 MG Aripiprazole (Abilify Tab) 2.5 mg TODAY@1000 ONCE PO 05/06/16 10:00 05/06/16 10:01 DC 05/06/16 09:48 2.5 MG Lab Results Last 24 Hrs: 04/30/16 15:05 Red Blood Count 4.99, Mean Corpuscular Volume 90.8, Mean Corpuscular Hemoglobin 32.5, Mean Corpuscular Hemoglobin Concent 35.8, Mean Platelet Volume 11.2, Neutrophils (%) (Auto) 59.9, Lymphocytes (%) (Auto) 31.5, Monocytes (%) (Auto) 6.2, Eosinophils (%) (Auto) 1.0, Basophils (%) (Auto) 0.7, Neutrophils # (Auto) 3.65, Lymphocytes # (Auto) 1.92, Monocytes # (Auto) 0.38, Eosinophils # (Auto) 0.06, Basophils # (Auto) 0.04 04/30/16 15:05 05/02/16 07:26 Test 04/30/16 14:44 04/30/16 15:05 05/02/16 07:26 Urine Color DK YELLOW Urine Appearance CLEAR (CLEAR) Urine pH 5.5 (4.5-7.5) Urine Specific [place] 1.027 (1.000-1.030) Urine Protein TRACE (NEG) Urine Glucose (UA) NEG (NEG) Urine Ketones TRACE (NEG) Urine Occult Blood 1+ (NEG) Urine Nitrite NEG (NEG) Urine Bilirubin NEG (NEG) Urine Urobilinogen NEG (NEG) Urine Leukocyte Esterase NEG (NEG) Urine WBC (Auto) 1-5 /hpf (0-5) Urine RBC (Auto) 5-10 /hpf (0-4) Urine Hyaline Casts (Auto) 5-10 /lpf (0-5) Urine Epithelial Cells (Auto) >30 /lpf (0-5) Urine Bacteria (Auto) 1+ (NEG) Urine Opiates Screen NEG (NEG) Urine Methadone, Qualitative NEG (NEG) Urine Barbiturates NEG (NEG) Urine Phencyclidine (PCP) Level NEG (NEG) Ur Amphetamine/Methamphetamine NEG (NEG) MDMA (Ecstasy) Screen NEG (NEG) Urine Benzodiazepines Screen NEG (NEG) Urine Cocaine Metabolite NEG (NEG) Urine Marijuana (THC) NEG (NEG) White Blood Count 6.09 K/uL (4.8-10.8) Red Blood Count 4.99 M/uL (4.2-5.4) Hemoglobin 16.2 g/dL (12.0-16.0) Hematocrit 45.3 % (37-47) Mean Corpuscular Volume 90.8 fL (80-100) Mean Corpuscular Hemoglobin 32.5 pg (25-34) Mean Corpuscular Hemoglobin Concent 35.8 g/dl (32-36) Platelet Count 223 K/uL (130-400) Mean Platelet Volume 11.2 fL (7.4-10.4) Neutrophils (%) (Auto) 59.9 % Lymphocytes (%) (Auto) 31.5 % Monocytes (%) (Auto) 6.2 % Eosinophils (%) (Auto) 1.0 % Basophils (%) (Auto) 0.7 % Neutrophils # (Auto) 3.65 K/uL (1.4-6.5) Lymphocytes # (Auto) 1.92 K/uL (1.2-3.4) Monocytes # (Auto) 0.38 K/uL (0.11-0.59) Eosinophils # (Auto) 0.06 K/uL (0-0.5) Basophils # (Auto) 0.04 K/uL (0-0.2) RDW Standard Deviation 42.5 fL (36.4-46.3) RDW Coefficient of Variation 12.9 % (11.5-14.5) Immature Granulocyte % (Auto) 0.7 % Immature Granulocyte # (Auto) 0.04 K/uL (0.00-0.02) Anion Gap 6.0 mmol/L (3-11) Est Creatinine Clear Calc Drug Dose 85.3 ml/min Estimated GFR () 99.1 Estimated GFR (Non- 85.5 BUN/Creatinine Ratio 6.9 (10-20) Calcium Level 8.8 mg/dl (8.5-10.1) Total Bilirubin 0.8 mg/dl (0.2-1) Direct Bilirubin 0.2 mg/dl (0-0.2) Aspartate Amino Transf (AST/SGOT) 18 U/L (15-37) Alanine Aminotransferase (ALT/SGPT) 21 U/L (12-78) Alkaline Phosphatase 63 U/L (45-117) Total Protein 7.7 gm/dl (6.4-8.2) Albumin 4.3 gm/dl (3.4-5.0) Thyroid Stimulating Hormone (TSH) 0.890 uIu/ml (0.300-4.500) Ethyl Alcohol mg/dL < 3.0 mg/dl (0-3) Estimated Average Glucose 108 mg/dl Hemoglobin A1c 5.4 % (4.5-5.6) Triglycerides Level 76 mg/dl (0-150) Cholesterol Level 200 mg/dl (0-200) HDL Cholesterol 66 mg/dl LDL Cholesterol, Calculated 119 mg/dl VLDL Cholesterol, Calculated 15 mg/dl Cholesterol/HDL Ratio 3.0
[2016-05-07] MEDS: ARIPIprazole TAB 5 MG TAB PO SCH (21:17)
[2016-05-08 06:48] VITALS: BP_SYST 122; BP_SYST 129; BP_DIAS 80; BP_DIAS 87; PULSE 49; PULSE 67
[2016-05-08] MEDS: SERTRALINE HCL 50 MG TAB PO SCH (08:36)
--- NOTE | 2016-05-08 08:41 | Psychiatric Progress Notes ---
Progress Note Date of Service May 08, 2016. Interval History Alison Archibald is a 55-year-old female who currently lives in [place] with her mother, has a history of unknown mental illness with past hospitalization, is not currently in treatment, and was admitted on a 302 involuntary commitment after being brought to the ED by the police on a 302 petition by her mother. Information provided by the patient is considered to be unreliable, and has been poorly cooperative with treatment. Chief Complaint "Fine". Subjective Patient was seen & assessed interval progress reviewed with Treatment Team. The patient says that nothing is different from yesterday. She reports that her mood is "fine". She had a visit from her mother that went well, and says that her mother mentioned discharge on Monday or Monday and wondered if I had talked with her mother. She continues to deny SI/HI, aud/vis hallucinations. She denies any suspicions about her food, although staff report that last evening she was paranoid that the candy bars that her family brought her were being stolen by the staff. Today she asked "why" several times after my questions, even when I asked about her mood or sleep, as if suspicious of my motives. She again says that she would like to be discharged as soon as possible. She denies side effects to meds Review of Systems Constitutional: No chills, No fatigue, No fever, No problem reported, No sweats , No weakness, No weight loss ENT: No dental problems, No hearing loss, No nasal symptoms, No problem reported, No sore throat, No tinnitus, No trouble swallowing, No unusual epistaxis Respiratory: No cough, No dyspnea at rest, No dyspnea on exertion, No hemoptysis, No problem reported, No shortness of breath, No sputum, No wheezing Cardiovascular: No PND, No chest pain, No claudication, No edema, No orthopnea , No palpitations, No problem reported Abdomen: No GI bleeding, No constipation, No diarrhea, No nausea, No pain, No problem reported, No vomiting Musculoskeletal: No calf pain, No joint pain, No muscle pain, No problem reported, No swelling Neurologic: No balance problems, No memory loss, No numbness/tingling, No paralysis, No problem reported, No vertigo, No weakness Psychiatric: + problem reported (denies problems but observed to be paranoid) Sleep Information Total Hours of Sleep: 7.75 Meal Information Percent of Breakfast Consumed: 100 Percent of Lunch Consumed: 80 Percent of Dinner Consumed: 90 Mental Status Exam During interview pt is: alert and oriented, guarded (Vague and evasive in answering questions, ) Appearance: appropriately dressed, appropriately groomed Eye contact is: good Motor behavior is: no abnormal motor movements Speech: normal in rate, rhythm & volume (minimal, not engaging) Affect: depressed, flat Mood is: other ("fine") Thought process: goal directed Thought content: paranoid Suicidal thought are: denied Homicidal thoughts are: denied Hallucinations: denies auditory, denies visual Cognition: other (memory and attention impaired - asks the same questions over and over and does not process new information) Intelligence estimated to be: average Insight: impaired Judgement: impaired Impression The patient remains guarded, with minimal answers to all questions. She continues with paranoia expressed during the day at times, but consistently denies it during our dicussion. She has been compliant with meds and attending groups, and has had good interactions with mother. If improvement continues may be able to consider discharge this week. Continue current meds. Continued Inpatient Care The patient requires inpatient care due to the severity of her condition and inability to manipulate information in a reality based manner. Plan (1) Unspecified psychosis 05/01--The patient is admitted to [facility] ([facility]) on q 15 min checks (behavioral with suicide precautions) for safety as well as elopement precautions. The patient will participate in group, recreational and milieu therapies and will be offered additional individual and family sessions as clinically appropriate. She is clearly in need of antipsychotic medication as she is unable to care for self outside of the hospital and not eating food regularly at home due to fears of contamination, she is acutely paranoid and will not improve without forced antipsychotic medications. We will continue to monitor and I will ask Dr. Sosa to provide a second psychiatric opinion re: forced meds as it is my opinion that or serious disability would occur within the next 30 days without intervention of inpatient hospitalization and antipsychotic medication such as Risperdal PO Mtab or Haldol IM. will attempt metabolic screening labs in the am she is very likely to require 303 commitment 05/02 -Today, the patient states willingness to resume sertraline and aripiprazole, which she states were previously helpful for her. Will start sertraline 50 mg every morning and aripiprazole 5 mg every morning. Fasting labs done today and lipids and glucose were normal. Hemoglobin A1c is normal at 5.4. -Would like to get records from her outpatient psychiatrist in [place], but she states she cannot recall his name. Will ask staff to ask mother to look at her medication bottles to clarify the name of her outpatient provider. -Patient is willing for a family meeting with mother. -Patient is unwilling to take antipsychotic medication, will file for a 303 commitment and pursue medications over objection, as she has significant psychotic symptoms that are impairing her ability to participate in treatment and move towards discharge. -Continue medically necessary private room due to significant psychosis and recent agitation. Continue elopement precautions. 05/03 -Refused meds yesterday, and took today but question of cheeking. Will file for 303, as refusing to allow contact with mother or OP records to clarify diagnosis or past treatment, remains psychotic (disorganized, paranoid, suspicious), and this is affecting her ability to care for herself and make decisions about her care. -Reports psychiatrist in [place] is Dr. Zander Roa, but won't sign an SULEIMAN. -Again offered SULEIMAN for mother and reviewed recommendation for meeting with her, but patient continues to refuse to sign it. 05/04 -303 granted. -Continue aripiprazole 5mg daily (refusing to increase dose) and sertraline 50mg daily (reports diarrhea so will wait until resolved to increase dose). -Signed SULEIMAN for OP psychiatrist in [place], so will request records. -Signed SULEIMAN for mother, so will schedule meeting. -Will need local OP therapist and psychiatrist. -Will d/c [facility] and attempt to place patient with a roommate, while monitoring for worsening psychosis/paranoia. 05/05 - Change Abilify to HS due to complaints of fatigue - Family meeting with mother today. 05/06 - Encourage the patient to reality check - Continue current meds. - Remains on 303 05/07 - Continue current plan (2) Diabetes HGBA1C normal at 5.4 (ave glucose 108). (3) Nicotine dependence readdress cessation when psychosis improved, she is currently refusing ordered nicotine replacement. 05/02--Refusing nicotine cessation education, but has patch and gun ordered prn, and has accepted gum for cravings. (4) Alcohol abuse Rule out alcohol abuse, as mother reports she drinks excessively at times with worsening agitation, although unable to quantify frequency or quantity of use. Discharge / Aftercare Planning Psychiatrist: Name: You will be assigned a psychiatrist after your intake appointment Therapist: Name: KARL Ohara Date of Appointment: May 23, 2016 Principal Consultant: Name: paulette. Visit Code E&M Code: 73752 Inventory Assets Strengths: supportive mother, resourceful Needs: ongoing involuntary commitment for safety and ultimately antipsychotic medications Risk Factors Assessment : Yes /single/: Yes Access to guns: No (Not at mother's house.) Health problems: No Mental Health Diagnoses: Yes Previous psychiatric stay: Yes Smoker: Yes Protective Factors Assessment : No Responsible for young children: No Employed: No Stable relationships: No Supportive family: Yes Data Vital Signs Last 24 Hrs: Date Time Temp Pulse Resp B/P Pulse Ox O2 Delivery O2 Flow Rate FiO2 05/08/16 06:48 49 18 129/87 67 122/80 Meds Administered Last 24 Hrs: Meds Administered (Past 24Hrs) Medications (Trade) Dose Ordered Sig/Gretchen Route Start Time Stop Time Status Last Admin Dose Admin Aripiprazole (Abilify Tab) 5 mg HS PO 05/06/16 22:00 06/05/16 21:59 05/07/16 21:17 5 MG Aripiprazole (Abilify Tab) 2.5 mg TODAY@1000 ONCE PO 05/06/16 10:00 05/06/16 10:01 DC 05/06/16 09:48 2.5 MG Lab Results Last 24 Hrs: 04/30/16 15:05 Red Blood Count 4.99, Mean Corpuscular Volume 90.8, Mean Corpuscular Hemoglobin 32.5, Mean Corpuscular Hemoglobin Concent 35.8, Mean Platelet Volume 11.2, Neutrophils (%) (Auto) 59.9, Lymphocytes (%) (Auto) 31.5, Monocytes (%) (Auto) 6.2, Eosinophils (%) (Auto) 1.0, Basophils (%) (Auto) 0.7, Neutrophils # (Auto) 3.65, Lymphocytes # (Auto) 1.92, Monocytes # (Auto) 0.38, Eosinophils # (Auto) 0.06, Basophils # (Auto) 0.04 04/30/16 15:05 05/02/16 07:26 Test 04/30/16 14:44 04/30/16 15:05 05/02/16 07:26 Urine Color DK YELLOW Urine Appearance CLEAR (CLEAR) Urine pH 5.5 (4.5-7.5) Urine Specific [place] 1.027 (1.000-1.030) Urine Protein TRACE (NEG) Urine Glucose (UA) NEG (NEG) Urine Ketones TRACE (NEG) Urine Occult Blood 1+ (NEG) Urine Nitrite NEG (NEG) Urine Bilirubin NEG (NEG) Urine Urobilinogen NEG (NEG) Urine Leukocyte Esterase NEG (NEG) Urine WBC (Auto) 1-5 /hpf (0-5) Urine RBC (Auto) 5-10 /hpf (0-4) Urine Hyaline Casts (Auto) 5-10 /lpf (0-5) Urine Epithelial Cells (Auto) >30 /lpf (0-5) Urine Bacteria (Auto) 1+ (NEG) Urine Opiates Screen NEG (NEG) Urine Methadone, Qualitative NEG (NEG) Urine Barbiturates NEG (NEG) Urine Phencyclidine (PCP) Level NEG (NEG) Ur Amphetamine/Methamphetamine NEG (NEG) MDMA (Ecstasy) Screen NEG (NEG) Urine Benzodiazepines Screen NEG (NEG) Urine Cocaine Metabolite NEG (NEG) Urine Marijuana (THC) NEG (NEG) White Blood Count 6.09 K/uL (4.8-10.8) Red Blood Count 4.99 M/uL (4.2-5.4) Hemoglobin 16.2 g/dL (12.0-16.0) Hematocrit 45.3 % (37-47) Mean Corpuscular Volume 90.8 fL (80-100) Mean Corpuscular Hemoglobin 32.5 pg (25-34) Mean Corpuscular Hemoglobin Concent 35.8 g/dl (32-36) Platelet Count 223 K/uL (130-400) Mean Platelet Volume 11.2 fL (7.4-10.4) Neutrophils (%) (Auto) 59.9 % Lymphocytes (%) (Auto) 31.5 % Monocytes (%) (Auto) 6.2 % Eosinophils (%) (Auto) 1.0 % Basophils (%) (Auto) 0.7 % Neutrophils # (Auto) 3.65 K/uL (1.4-6.5) Lymphocytes # (Auto) 1.92 K/uL (1.2-3.4) Monocytes # (Auto) 0.38 K/uL (0.11-0.59) Eosinophils # (Auto) 0.06 K/uL (0-0.5) Basophils # (Auto) 0.04 K/uL (0-0.2) RDW Standard Deviation 42.5 fL (36.4-46.3) RDW Coefficient of Variation 12.9 % (11.5-14.5) Immature Granulocyte % (Auto) 0.7 % Immature Granulocyte # (Auto) 0.04 K/uL (0.00-0.02) Anion Gap 6.0 mmol/L (3-11) Est Creatinine Clear Calc Drug Dose 85.3 ml/min Estimated GFR () 99.1 Estimated GFR (Non- 85.5 BUN/Creatinine Ratio 6.9 (10-20) Calcium Level 8.8 mg/dl (8.5-10.1) Total Bilirubin 0.8 mg/dl (0.2-1) Direct Bilirubin 0.2 mg/dl (0-0.2) Aspartate Amino Transf (AST/SGOT) 18 U/L (15-37) Alanine Aminotransferase (ALT/SGPT) 21 U/L (12-78) Alkaline Phosphatase 63 U/L (45-117) Total Protein 7.7 gm/dl (6.4-8.2) Albumin 4.3 gm/dl (3.4-5.0) Thyroid Stimulating Hormone (TSH) 0.890 uIu/ml (0.300-4.500) Ethyl Alcohol mg/dL < 3.0 mg/dl (0-3) Estimated Average Glucose 108 mg/dl Hemoglobin A1c 5.4 % (4.5-5.6) Triglycerides Level 76 mg/dl (0-150) Cholesterol Level 200 mg/dl (0-200) HDL Cholesterol 66 mg/dl LDL Cholesterol, Calculated 119 mg/dl VLDL Cholesterol, Calculated 15 mg/dl Cholesterol/HDL Ratio 3.0
[2016-05-08] MEDS: NICOTINE GUM PO PRN ×2 (14:17→21:13)
[2016-05-08] MEDS: ARIPIprazole TAB 5 MG TAB PO SCH (21:11)
[2016-05-09 06:58] VITALS: BP_SYST 117; BP_SYST 118; BP_DIAS 76; BP_DIAS 79; PULSE 50; PULSE 57; TEMP 36.9
[2016-05-09] MEDS: SERTRALINE HCL 50 MG TAB PO SCH (08:52)
--- NOTE | 2016-05-09 14:11 | Psychiatric Progress Notes ---
Progress Note Date of Service May 09, 2016. Interval History Alison Archibald is a 55-year-old female who currently lives in [place] with her mother, has a history of unknown mental illness with past hospitalization, is not currently in treatment, and was admitted on a 302 involuntary commitment after being brought to the ED by the police on a 302 petition by her mother. Information provided by the patient is considered to be unreliable, and has been poorly cooperative with treatment. Chief Complaint "Okay, good". Subjective Patient was seen & assessed interval progress reviewed with Treatment Team. Staff report she is going to groups, has visited with mother over the weekend, and is hoping to be discharged soon. Although she agreed to a referral for outpatient psychiatry and therapy, she declined recommendations to follow up with [facility] and [facility] home health care case manager, feeling she did not need the services. She is taking medications as prescribed here. She states that her mood is good, and denies thoughts of harming herself or anyone else. She thinks her medications are helping "to keep me calm, I'll be able to concentrate on getting a job." She denies side effects, and when asked why she declined recommendations for mobile med management, so she doesn't think she needs it, as she would just ask her psychiatrist if she had a question. She plans to go buy her son a birthday card after discharge, and then go look for a job. She denies is an inpatient the paranoia, stating that she remembers some of the thoughts she was having on admission, and recognizes that these were symptoms, although she denies any current psychosis. Nursing staff talked with her mother, who stated that she was irritable during the visit on Monday, and yesterday seemed tired, forgetful "not as on top of things." Her mother is planning to visit [facility], and will then check in with staff to see how close to baseline the patient is. Sleep Information Total Hours of Sleep: 8.50 Meal Information Percent of Breakfast Consumed: 75 Percent of Lunch Consumed: 100 Percent of Dinner Consumed: 100 Mental Status Exam During interview pt is: alert and oriented, guarded Appearance: appropriately dressed, appropriately groomed Eye contact is: good Motor behavior is: steady gait & station, no abnormal motor movements Speech: normal in rate, rhythm & volume Affect: blunted Mood is: other ("ok") Thought process: goal directed Thought content: reality based without delusions Suicidal thought are: denied Homicidal thoughts are: denied Hallucinations: denies auditory, denies visual Cognition: language grossly intact Intelligence estimated to be: average Insight: impaired Judgement: impaired Impression The patient remains guarded, with minimal answers to questions. She appears suspicious and paranoid at times, but denies it during our discussion. She has been compliant with meds and attending groups, and has had good interactions with mother. If improvement continues may be able to consider discharge in the next 1-2 days. Continue current meds. Continued Inpatient Care The patient requires inpatient care due to the severity of her condition and inability to manipulate information in a reality based manner. Plan (1) Unspecified psychosis 05/01--The patient is admitted to [facility] ([facility]) on q 15 min checks (behavioral with suicide precautions) for safety as well as elopement precautions. The patient will participate in group, recreational and milieu therapies and will be offered additional individual and family sessions as clinically appropriate. She is clearly in need of antipsychotic medication as she is unable to care for self outside of the hospital and not eating food regularly at home due to fears of contamination, she is acutely paranoid and will not improve without forced antipsychotic medications. We will continue to monitor and I will ask Dr. Sosa to provide a second psychiatric opinion re: forced meds as it is my opinion that or serious disability would occur within the next 30 days without intervention of inpatient hospitalization and antipsychotic medication such as Risperdal PO Mtab or Haldol IM. will attempt metabolic screening labs in the am she is very likely to require 303 commitment 05/02 -Today, the patient states willingness to resume sertraline and aripiprazole, which she states were previously helpful for her. Will start sertraline 50 mg every morning and aripiprazole 5 mg every morning. Fasting labs done today and lipids and glucose were normal. Hemoglobin A1c is normal at 5.4. -Would like to get records from her outpatient psychiatrist in [place], but she states she cannot recall his name. Will ask staff to ask mother to look at her medication bottles to clarify the name of her outpatient provider. -Patient is willing for a family meeting with mother. -Patient is unwilling to take antipsychotic medication, will file for a 303 commitment and pursue medications over objection, as she has significant psychotic symptoms that are impairing her ability to participate in treatment and move towards discharge. -Continue medically necessary private room due to significant psychosis and recent agitation. Continue elopement precautions. 05/03 -Refused meds yesterday, and took today but question of cheeking. Will file for 303, as refusing to allow contact with mother or OP records to clarify diagnosis or past treatment, remains psychotic (disorganized, paranoid, suspicious), and this is affecting her ability to care for herself and make decisions about her care. -Reports psychiatrist in [place] is Dr. Zander Roa, but won't sign an SULEIMAN. -Again offered SULEIMAN for mother and reviewed recommendation for meeting with her, but patient continues to refuse to sign it. 05/04 -303 granted. -Continue aripiprazole 5mg daily (refusing to increase dose) and sertraline 50mg daily (reports diarrhea so will wait until resolved to increase dose). -Signed SULEIMAN for OP psychiatrist in [place], so will request records. -Signed SULEIMAN for mother, so will schedule meeting. -Will need local OP therapist and psychiatrist. -Will d/c [facility] and attempt to place patient with a roommate, while monitoring for worsening psychosis/paranoia. 05/05 - Change Abilify to HS due to complaints of fatigue - Family meeting with mother today. 05/06 - Encourage the patient to reality check - Continue current meds. - Remains on 303 05/07 - Continue current plan 05/09 - Check with mother after visit tonight to determine how close patient is to baseline and if she has any safety concerns with her being discharged in the next 1-2 days. (2) Diabetes HGBA1C normal at 5.4 (ave glucose 108). (3) Nicotine dependence readdress cessation when psychosis improved, she is currently refusing ordered nicotine replacement. 05/02--Refusing nicotine cessation education, but has patch and gun ordered prn, and has accepted gum for cravings. (4) Alcohol abuse Rule out alcohol abuse, as mother reports she drinks excessively at times with worsening agitation, although unable to quantify frequency or quantity of use. Discharge / Aftercare Planning Psychiatrist: Name: You will be assigned a psychiatrist after your intake appointment Therapist: Name: [facility] Mayda Date of Appointment: May 23, 2016 Senior Software Quality Engineer: Name: unk. Visit Code E&M Code: 87143 Inventory Assets Strengths: supportive mother, resourceful Needs: ongoing involuntary commitment for safety and ultimately antipsychotic medications Risk Factors Assessment : Yes /single/: Yes Access to guns: No (Not at mother's house.) Health problems: No Mental Health Diagnoses: Yes Previous psychiatric stay: Yes Smoker: Yes Protective Factors Assessment : No Responsible for young children: No Employed: No Stable relationships: No Supportive family: Yes Data Vital Signs Last 24 Hrs: Date Time Temp Pulse Resp B/P Pulse Ox O2 Delivery O2 Flow Rate FiO2 05/09/16 06:58 36.9 50 16 118/76 57 117/79
[2016-05-09] MEDS: ARIPIprazole TAB 5 MG TAB PO SCH (21:02)
[2016-05-09] MEDS: NICOTINE GUM PO PRN (21:08)
[2016-05-10 06:47] VITALS: BP_SYST 125; BP_SYST 130; BP_DIAS 80; BP_DIAS 82; PULSE 50; PULSE 62; TEMP 36.8
[2016-05-10] MEDS: SERTRALINE HCL 50 MG TAB PO SCH (09:04)
[2016-05-10] MEDS ORDERED: ZLF50 PO (11:09)
[2016-05-10] MEDS ORDERED: Non Formulary Item PO (11:09)
[2016-05-10] MEDS ORDERED: ABL5 PO (11:09)
[2016-05-10] MEDS ORDERED: NICO2GUM7 PO (11:11)
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
== END 2016-05-10 11:40 | disposition home or self-care (01) | DRG 885 ==
LOC: ENRESERVDT → ENRESERVTM → C.EDB 13:59 → C.MHU 17:30 → CMPBEDREQ 18:10 → C.MHU 05-09 10:42
PROVIDERS: ADMIT Psychiatry & Neurology Child & Adolescent Psychiatry; ATTEND Psychiatry & Neurology Child & Adolescent Psychiatry
DX: F29 Unspecified psychosis not due to a substance or known physiological condition (principal); F32.9 Major depressive disorder, single episode, unspecified; F17.210 Nicotine dependence, cigarettes, uncomplicated; E11.9 Type 2 diabetes mellitus without complications; F10.10 Alcohol abuse, uncomplicated; Z91.19 Patient's noncompliance with other medical treatment and regimen

== ENCOUNTER 2024-08-08 18:45 | Inpatient (IN) ==
[2024-08-08 19:18] LABS: Hematocrit (blood only) 30.1 % (37.0-47.0); Hemoglobin 9.8 g/dl (12.0-16.0); Immature Granulocytes # (auto) 0.07 K/uL (0.01-0.20); Immature Granulocytes % (auto) 0.8 %; Mean Corpuscular Hemoglobin 31.1 pg (25.0-34.0); Mean Corpuscular Volume 95.6 fL (80.0-100.0); Platelet Count 204 K/uL (130-400); RDW Standard Deviation 50.4 fL (36.4-46.3); Red Blood Count 3.15 M/uL (4.20-5.40); White Blood Count 9.03 K/ul (4.8-10.8)
[2024-08-08 19:30] LABS: Alanine Aminotransferase 9.0 U/L (7-52); Albumin Globulin Ratio 1.3 (0.9-2); Alkaline Phosphatase 62.0 U/L (34-104); Anion Gap 11.0 (3-11); Bilirubin,Total 0.6 mg/dl (0.2-1.0); Blood Urea Nitrogen 62.0 mg/dl (6-23); Calcium 8.3 mg/dl (8.6-10.3); Carbon Dioxide 19.0 mmol/L (21-32); Chloride 111.0 mmol/L (98-107); Creatinine Clr Calc Pharmacy 98.5 ml/min; Globulin 2.6 gm/dl (2.5-4.0); Glucose 94.0 mg/dl (70-99(Fasting)); Potassium 4.1 mmol/L (3.5-5.1); Sodium 141.0 mmol/L (136-145); Total Protein 6.1 gm/dl (6.0-8.3)
--- NOTE | 2024-08-08 19:37 | XRay Report ---
Clinical History: Chest pain Technique: A frontal view of the chest was obtained Comparison is made to the prior examination dated 07/27/2024 Findings: There are no definite pulmonary infiltrates. The heart size is within normal limits. No pleural effusion or pneumothorax is seen. There is no definite pulmonary nodule. No fracture is noted. There is thoracic scoliosis and degenerative disc disease Impression: No active disease Electronically signed by Lazarus Almaguer 08-08-2024 7:36 PM
[2024-08-08 19:42] LABS: INR 1.1 (0.9-1.1); Partial Thromboplastin Time 23 Seconds (21-31); Prothrombin Time 11.6 Seconds (9.0-12.0)
--- NOTE | 2024-08-08 20:16 | Emergency Department Note ---
Impression & Plan Acute upper GI bleed, Chest pain, Prerenal azotemia, Acute blood loss anemia ED Provider Note NAME: ARCHIE WINKLER AGE: 63 SEX: F : 1960 ARRIVES VIA: Walk-In INFORMANT: Patient, ED PROVIDER(S): Braulio Colon MD CHIEF COMPLAINT: Chest pain MEDICAL DECISION MAKING: Patient presents due to concern for chest pain. IV was established and blood work was obtained along with EKG troponin chest x-ray. Patient's blood work shows a white count that is normal hemoglobin 9.8 about a 4 point drop in about 10 days time. Patient significant BUN to creatinine ratio with burning chest pain consistent with upper GI bleeding. Patient did have a type and screen ordered. Initial troponin negative. EKG without signs of STEMI. Patient does have T wave inversions. Troponin negative. Patient currently hemodynamically stable and does not require transfusion at this time. PPI bolus and drip ordered. I did speak with the on-call hospitalist Mark Jenkins PA-C and Dr. Ortega and the patient was admitted to the medicine service. Discussion w/ other healthcare providers: None Prior /Outside records reviewed: None Differential diagnosis: Upper GI bleed, cardiac ischemia, aortic dissection, pulmonary embolism, pneumothorax, pneumonia, pericarditis, myocarditis, GERD, cholecystitis, pancreatitis, musculoskeletal, as well as other pathologies were considered. Diagnostics, as interpreted by me: ECG: [Normal sinus rhythm, rate of 91, normal intervals, normal axis, T wave versions anteriorly and laterally. T wave versions are new from comparison EKG July 27, 2024. Cardiac monitoring: An order was placed for continuous cardiac monitoring. The monitor shows a rate of 89 with sinus rhythm. Patient was placed on pulse oximetry Medical decision rules: none Imaging studies: I informally interpreted the patient's chest x-ray does not show obvious pneumonia or pneumothorax with formal report to follow. HPI: Patient presents due to concern for chest pains. The patient states that she began having it yesterday. The patient reports that it is right-sided constant and burning. No specific exertional component. No diaphoresis nausea or vomiting. Patient reports that she has had some dark stools. Review of the patient's medication list does show meloxicam which the patient states she only took for several days and has not taken for about 3 days time. Patient states that she does work at [employer] Patient denies any cough or fever. Patient denies prior history of DVT or PE. No leg swelling or calf pain. No recent surgeries procedures. PAST MEDICAL HISTORY: See Below PAST SURGICAL HISTORY: See Below SOCIAL HISTORY: See Below HOME MEDICATIONS: See Below ALLERGIES: See Below VITALS: See Below PHYSICAL EXAMINATION: GENERAL: NAD, non-toxic. EYE EXAM: Normal conjunctiva. PERRL, no anisocoria and EOM's grossly intact w/o pain. OROPHARYNX: Moist mucus membranes, grossly normal dentition. NECK: Trachea midline, no stridor. LUNGS: Clear to auscultation. Normal chest wall mechanics. HEART: NSR, no MRG. ABDOMEN: Abdomen soft, non-tender, no masses, no rebound or guarding. BACK: No CVA TTP. SKIN: No rashes and no bruising. UPPER EXTREMITIES: Upper extremities are grossly normal. LOWER EXTREMITIES: Grossly normal, no edema. Negative Homans' sign bilaterally. NEURO EXAM: Awake and alert, follows commands, no obvious facial asymmetry, normal speech, moves all 4 extremities. Past Med/Surg History Problem List (Updated 08/09/24 @ 19:56 by Braulio Colon MD) Acute blood loss anemia (Acute) Prerenal azotemia (Acute) Chest pain (Acute) Acute upper GI bleed (Acute) Anemia Upper GI bleed Acute costochondritis (Acute) Tendinitis of left wrist (Acute) Enteritis (Acute) Knee contusion (Acute) Hematoma of right foot (Acute) Chronic venous insufficiency Neurogenic claudication Cervicalgia Chronic low back pain Ascending aorta dilatation Left atrial enlargement Moderate mitral regurgitation Edema Cholelithiasis Otalgia of left ear Sensorineural hearing loss, unilateral, left ear, with unrestricted hearing on the contralateral side Anxiety and depression (Chronic) Diabetes (Chronic) Alcohol abuse Depression Mood disorder (Acute) Nicotine dependence Unspecified psychosis Medical History Urinary incontinence Surgical History H/O hand surgery History of bladder surgery Hx of tonsillectomy Hx of wisdom tooth extraction Family History Aunt Breast cancer Sister Breast cancer Denies family history of Diabetes Myocardial infarction Lung cancer Colorectal cancer Stroke Social History Smoking Status: Never smoker Tobacco Type: Cigarettes Age Started Using Tobacco: 62; Age Quit Using Tobacco: 63; packs per day: 0.5; Second Hand Exposure: No; Do You Dip or Chew Tobacco: No; Hx Alcohol Use: No Hx Substance Use: No Preferred Language: Tamazight Communication Ability: Effective Visual Impairment: No Limitations Hearing Ability: Normal [employer] Required: No Beliefs That Will Affect Care: None marital status: Current Living Situation: Alone Current Living Situation Comment: currently lives at [facility]" current occupational status: unemployed How many Children do You have: 2 Feels Safe at Home: Yes Safety Concerns: Feels Safe At This Time Childhood Exposure to Second-Hand Smoke: No Diet: regular caffeine: No during the past year weight has: increased > 10 lbs Dental Care, Regularly: No Physical Activity Frequency: Daily Seatbelt Use: always Sunscreen Use: No Assistive Devices: None Allergies Allergies Allergy/AdvReac Type Severity Reaction Status Date / Time red dye Allergy Mild Unknown Verified 07/31/24 08:44 fentanyl Allergy Unknown uknown Verified 07/31/24 08:44 lithium Allergy Unknown Unknown Verified 07/31/24 08:44 varenicline [From Chantix] Allergy Unknown Unknown Verified 07/31/24 08:44 diuretics Allergy Mild previous Uncoded 07/31/24 08:44 bladder surgery Home Meds Previous Rx's Medication Instructions Recorded incontinence pad, liner, disp #264 ea 05/27/24 (Poise Pads) furosemide 20 mg tablet 20 mg PO DAILY PRN swelling #30 05/29/24 tabs lisinopril 2.5 mg tablet 2.5 mg PO DAILY #90 tabs 05/29/24 amoxicillin 500 mg capsule 500 mg PO TID 14 days #42 caps 07/31/24 meloxicam 15 mg tablet 15 mg PO DAILY PRN pain #30 tabs 07/31/24 Results & Data (ED) Vital Signs Vital Signs - 24 hr 08/08/24 20:18 Pulse Rate [Finger] 82 Pulse Rhythm [Finger] Regular Pulse Strength [Finger] Normal Respiratory Rate 20 Respiratory Effort / Characteristics Non-Labored Respiratory Depth Normal Blood Pressure [Left Arm] 127/67 Blood Pressure Mean [Left Arm] 87 Pulse Oximetry 94 Oxygen Delivery Method Room Air Home Medications Current Medication List: was personally reviewed by me Laboratory Data Attestation: I reviewed the patient's lab results. 08/09/24 11:14 08/09/24 03:11 Lab Results 08/08/24 08/08/24 08/08/24 Range/Units 18:55 19:04 20:33 WBC 9.03 (4.8-10.8) K/ul RBC 3.15 L (4.20-5.40) M/uL Hgb 9.8 L (12.0-16.0) g/dl Hct 30.1 L (37.0-47.0) % MCV 95.6 (80.0-100.0) fL MCH 31.1 (25.0-34.0) pg MCHC 32.6 (32.0-36.0) g/dL RDW Std Deviation 50.4 H (36.4-46.3) fL RDW Coeff of Rosetta 14.5 (11.5-14.5) % Plt Count 204 (130-400) K/uL MPV 10.6 (9.4-12.4) fL Immature Gran % (Auto) 0.8 % Neut % (Auto) 74.9 % Lymph % (Auto) 17.5 % Atlantic % (Auto) 6.0 % Eos % (Auto) 0.4 % Baso % (Auto) 0.4 % Neut # (Auto) 6.76 H (1.40-6.50) K/uL Lymph # (Auto) 1.58 (1.20-3.40) K/uL Atlantic # (Auto) 0.54 (0.11-0.59) K/uL Eos # (Auto) 0.04 (0.00-0.50) K/uL Baso # (Auto) 0.04 (0.00-0.20) K/uL Immature Gran # (Auto) 0.07 (0.01-0.20) K/uL PT 11.6 (9.0-12.0) Seconds INR 1.1 (0.9-1.1) APTT 23 (21-31) Seconds PTT Ratio 0.9 D-Dimer 330 (0-500) ug/L FEU Sodium 141 (136-145) mmol/L Potassium 4.1 (3.5-5.1) mmol/L Chloride 111 H (98-107) mmol/L Carbon Dioxide 19 L (21-32) mmol/L Anion Gap 11 (3-11) BUN 62 H (6-23) mg/dl Creatinine 0.66 (0.6-1.2) mg/dl Est Cr Clr Drug Dosing 98.5 ml/min eGFR 99.74 BUN/Creatinine Ratio 93.9 H (10-20) Glucose 94 (70-99(Fasting)) mg/dl Calcium 8.3 L (8.6-10.3) mg/dl Total Bilirubin 0.6 (0.2-1.0) mg/dl AST 17 (13-39) U/L ALT 9 (7-52) U/L Alkaline Phosphatase 62 (34-104) U/L Troponin I High Sens 4.3 5.4 (0-14) pg/ml B-Natriuretic Peptide 65 (0-100) pg/ml Total Protein 6.1 (6.0-8.3) gm/dl Albumin 3.5 (3.4-5.0) gm/dl Globulin 2.6 (2.5-4.0) gm/dl Albumin/Globulin Ratio 1.3 (0.9-2) Blood Type O Positive Antibody Screen NEGATIVE Crossmatch See Detail Administered Medications Pantoprazole Sodium 40 mg/ (Dextrose) 100 mls @ 20 mls/hr IV Q5H MO Stop: 09/07/24 20:44 Last Admin: 08/09/24 15:23 Dose: 8 mg/hr, 20 mls/hr Documented By: Infusion: 08/09/24 15:23 Dose: Infused Documented By: Admin: 08/09/24 10:24 Dose: 8 mg/hr, 20 mls/hr Documented By: DLHailey Infusion: 08/09/24 10:24 Dose: Infused Documented By: Admin: 08/09/24 05:53 Dose: 8 mg/hr, 20 mls/hr Documented By: KDChantell Infusion: 08/09/24 05:53 Dose: Infused Documented By: KDChantell Admin: 08/09/24 01:13 Dose: 8 mg/hr, 20 mls/hr Documented By: KDChantell Infusion: 08/09/24 01:13 Dose: Infused Documented By: KDChantell Admin: 08/08/24 21:10 Dose: 8 mg/hr, 20 mls/hr Documented By: ALEXANDRE Lactated Ringer's (Lr) 1,000 mls @ 80 mls/hr IV .[id number] [facility] Stop: 08/11/24 20:59 Last Admin: 08/09/24 07:57 Dose: 80 mls/hr Documented By: Infusion: 08/09/24 07:57 Dose: Infused Documented By: Admin: 08/08/24 21:10 Dose: 80 mls/hr Documented By: ALEXANDRE Lisinopril (Lisinopril 2.5 Mg Tab) 2.5 mg PO DAILY [facility] Stop: 09/08/24 08:59 Last Admin: 08/09/24 09:27 Dose: Not Given Documented By: DIMITRY Ondansetron HCl (Ondansetron Inj 2 Mg/Ml 2 Ml Vial) 4 mg IV Q6H PRN PRN Reason: Nausea And Vomiting Stop: 09/07/24 22:28 Last Admin: 08/09/24 10:26 Dose: 4 mg Documented By: Admin: 08/09/24 03:24 Dose: 4 mg Documented By: ELISA Discontinued Medications Pantoprazole Sodium 80 mg/ (Dextrose) 120 mls @ 480 mls/hr IV NOW ONE Stop: 08/08/24 20:41 Last Infusion: 08/08/24 21:06 Dose: Infused Documented By: Admin: 08/08/24 20:51 Dose: 480 mls/hr Documented By: JANNET Acetaminophen (Ofirmev) 1,000 mg in 100 mls @ 400 mls/hr IV Q8H PRN PRN Reason: Pain or Fever Stop: 08/11/24 22:28 Last Infusion: 08/09/24 14:00 Dose: 0 mls/hr Documented By: Infusion: 08/09/24 13:56 Dose: 0 mls/hr Documented By: Admin: 08/09/24 13:20 Dose: 40 mls/hr Documented By: Infusion: 08/08/24 23:14 Dose: Infused Documented By: Admin: 08/08/24 22:46 Dose: 400 mls/hr Documented By: ELISA Morphine Sulfate (Morphine Sulfate 2 Mg/Ml Carp) 1 mg IV NOW STA Stop: 08/09/24 06:34 Last Admin: 08/09/24 07:19 Dose: 1 mg Documented By: ELISA Ondansetron HCl (Ondansetron Inj 2 Mg/Ml 2 Ml Vial) 4 mg IV NOW STA Stop: 08/08/24 21:00 Last Admin: 08/08/24 21:10 Dose: 4 mg Documented By: ALEXANDRE Pantoprazole Sodium (Pantoprazole Bolus/Drip) 1 each IV NOW STA Stop: 08/08/24 20:28 Last Admin: 08/08/24 20:53 Dose: Not Given Documented By: JANNET Imaging Data Radiologist's Impression: Chest X-Ray 08/08/24 18:57 Clinical History: Chest pain Technique: A frontal view of the chest was obtained Comparison is made to the prior examination dated 07/27/2024 Findings: There are no definite pulmonary infiltrates. The heart size is within normal limits. No pleural effusion or pneumothorax is seen. There is no definite pulmonary nodule. No fracture is noted. There is thoracic scoliosis and degenerative disc disease Impression: No active disease Electronically signed by Lazarus Almaguer 08-08-2024 7:36 PM Discharge Plan Visit Data Chief Complaint: Chest Pain Stated Complaint: CHEST PAIN, SICK PAIN ED Provider: Braulio Colon Discharge Problem: Acute upper GI bleed, Chest pain, Prerenal azotemia, Acute blood loss anemia Patient Disposition: Admitted As Inpatient Condition: Good Discharge Instructions Interventions: ED Discharge Assessment Last Done: 08/08/24 22:03 Discharge Problem: Chest pain Qualifiers: Chest pain type: other chest pain Qualified Code(s): R07.89 - Other chest pain
--- NOTE | 2024-08-08 20:38 | History & Physical Report ---
Date of Service August 08, 2024 Assessment & Plan (1) Upper GI bleed: (2) Anemia: (3) Moderate mitral regurgitation: Plan Patient is a 63-year-old female with past medical history of mitral regurg, chronic venous insufficiency, mild ascending aorta dilation, anxiety/depression. Patient presented due to black tarry stools x 2 days and upper midsternal burning constant chest pain. She is being admitted for an upper GI bleed with a BUN of 62, and 3.0 hemoglobin drop in 10 days. #UGIB - Hemodynamically stable at time of admission. Bun 62. Hgb dropped 13.8 -> 9.8 in 10 days. Recent meloxicam use. - Hemoccult ordered - Protonix drip started in ED - Zofran as needed - N.p.o. - LR at 80 mL/hour - H&H Q4H - type and screen ordered 2 units on hold, patient has not yet signed blood consent form as she is still considering - discussed risks vs benefit on admission - GI consulted for possible EGD #HTN/mitral regurgiationcontinue lisinopril #Chronic venous insufficiencytakes Lasix every few days, will hold at this time. Is to have endovenous ablation in outpatient setting. VTE ppx: SCDs, defer chemical with bleeding Dispo: PCU Admission and Anticipated Discharge Date Admission Date: 08/08/24 History of Present Illness Chief Complaint: chest pain Primary Care Provider: Gadiel Granda DO Patient is a 63-year-old female with past medical history of mitral regurg, chronic venous insufficiency, mild ascending aorta dilation, anxiety/depression. Patient presented due to black tarry stools x 2 days and u pper midsternal burning constant chest pain. She is being admitted for an upper GI bleed with a BUN of 62, and 3.0 hemoglobin drop in 10 days. Patient seen at bedside. She recently started a job at [employer] and is greatly concerned about losing her job that she just took off last week due to feeling sick. Patient stated she went back to work Monday and developed significant worsening upper midsternal burning, constant chest pain that gets worse with eating. She also has associated black tarry stools that has become worse over the past few days and she had approximately 15 episodes today with diarrhea as well as incontinence. She stated she has been nauseous, diaphoretic, short of breath, and with poor appetite for several days. She denies any history of GI bleeding and stated she previously had an EGD and colonoscopy several years ago that looked okay. Patient was taking meloxicam once daily for approximately 3 days earlier this week due to feeling sick. She denies any recent Pepto-Bismol use, iron supplements, steroid use, alcohol use. She denies any nicotine use. She has not taken her home medications today, she has Lasix as needed and takes every few days. She wishes to be DNR/DNI. Discussed blood consents at bedside, patient would like to think about this for little bit, with hemoglobin stable at 9.8 this is reasonable. Allergies Allergy/AdvReac Type Severity Reaction Status Date / Time red dye Allergy Mild Unknown Verified 07/31/24 08:44 fentanyl Allergy Unknown uknown Verified 07/31/24 08:44 lithium Allergy Unknown Unknown Verified 07/31/24 08:44 varenicline [From Chantix] Allergy Unknown Unknown Verified 07/31/24 08:44 diuretics Allergy Mild previous Uncoded 07/31/24 08:44 bladder surgery Home Medications Medication Instructions Recorded Confirmed Type incontinence pad, liner, disp #264 ea 05/27/24 07/31/24 Rx (Poise Pads) furosemide 20 mg tablet 20 mg PO DAILY PRN swelling #30 05/29/24 08/08/24 Rx tabs lisinopril 2.5 mg tablet 2.5 mg PO DAILY #90 tabs 05/29/24 08/08/24 Rx amoxicillin 500 mg capsule 500 mg PO TID 14 days #42 caps 07/31/24 08/08/24 Rx meloxicam 15 mg tablet 15 mg PO DAILY PRN pain #30 tabs 07/31/24 08/08/24 Rx Past Med/Surg History Problem List (Updated 08/08/24 @ 21:11 by Grace Rodríguez PA-C) Anemia Upper GI bleed Acute costochondritis (Acute) Tendinitis of left wrist (Acute) Enteritis (Acute) Knee contusion (Acute) Hematoma of right foot (Acute) Chronic venous insufficiency Neurogenic claudication Cervicalgia Chronic low back pain Ascending aorta dilatation Left atrial enlargement Moderate mitral regurgitation Edema Cholelithiasis Otalgia of left ear Sensorineural hearing loss, unilateral, left ear, with unrestricted hearing on the contralateral side Anxiety and depression (Chronic) Diabetes (Chronic) Alcohol abuse Depression Mood disorder (Acute) Nicotine dependence Unspecified psychosis Medical History Urinary incontinence Surgical History H/O hand surgery History of bladder surgery Hx of tonsillectomy Hx of wisdom tooth extraction Family History Aunt Breast cancer Sister Breast cancer Denies family history of Diabetes Myocardial infarction Lung cancer Colorectal cancer Stroke Social History Smoking Status: Never smoker Tobacco Type: Cigarettes Age Started Using Tobacco: 62; Age Quit Using Tobacco: 63; packs per day: 0.5; Second Hand Exposure: No; Do You Dip or Chew Tobacco: No; Hx Alcohol Use: No Hx Substance Use: No Preferred Language: Swedish Communication Ability: Effective Visual Impairment: No Limitations Hearing Ability: Normal marital status: Current Living Situation: Other Current Living Situation Comment: [place] current occupational status: unemployed How many Children do You have: 2 Feels Safe at Home: Yes Childhood Exposure to Second-Hand Smoke: No Diet: regular caffeine: No during the past year weight has: increased > 10 lbs Dental Care, Regularly: No Physical Activity Frequency: Daily Seatbelt Use: always Sunscreen Use: No Assistive Devices: None Review of Systems Review of Systems: see HPI Physical Exam Physical Exam: The patient is awake, alert and oriented 3, well developed and well nourished, normocephalic and atraumatic, in no acute distress. Non-toxic appearing. HEENT- EOMI, mucous membranes moist. Hearing grossly intact. Heart-normal S1 and S2. No murmurs, rubs or gallops. Lungs-clear bilaterally, no respiratory distress, no accessory muscle use. Abdomen-normal bowel sounds and soft. No ascites noted. Tender to epigastric region. Extremities- no clubbing, cyanosis, or edema. Rheumatologic-normal range of motion. Psychiatric-normal affect. Results & Data Results & Data Vital Signs (Past 12 Hours) Vital Signs Temp Pulse Pulse Resp BP BP Pulse Ox 08/08/24 20:18 82 20 127/67 94 08/08/24 19:02 97 08/08/24 18:59 90 08/08/24 18:47 36.8 C 93 H 20 126/79 92 O2 Del Method 08/08/24 20:18 Room Air 08/08/24 19:02 Room Air 08/08/24 18:59 08/08/24 18:47 Room Air Laboratory Results Reviewed CBC and CMP Diagnostic Findings reviewed CXR Medications Administered EDProtonix drip ECG Additional Comments: ordered Code Status & VTE Plan Code Status dnr/dni VTE Prophylaxis Plan VTE Prophylaxis will be ordered: Yes Supervising Physician Co-Signing Physician Notes Patient seen and examined, chart reviewed, case discussed with Grace Rodríguez PA-C and I agree with the assessment and plan as above except as otherwise noted Labs and images reviewed 63-year-old female with a history of mitral regurgitation, chronic venous insufficiency, anxiety/depression and NSAID use who presents with black starry stools and burning chest pain. BUN is elevated, hemoglobin is decreased from baseline of around 14 to 9.8 on admission. She was admitted for suspected upper GI bleed without hemodynamic instability. Heart rate is normal, BP normal. Suspect due to ulcer/NSAID use. Protonix gtt started in the ER, may switch to push dose twice daily 7/4 AM. Trend hemoglobin q4h. GI Consulted for EGD evaluation. Agree with above. PG Care Time/CCT Total # of Minutes Spent Total Time Spent with Patient: Total time spent is greater than 50% in coordination of care (as documented) at patient's floor/unit and/or counseling patient: Coding Level of Care Code 31180 INT INP/OBS CARE 3/75MIN Diagnoses Upper GI bleed K92.2 Anemia D64.9 Moderate mitral regurgitation I34.0
[2024-08-08] MEDS: PANTOPRAZOLE BOLUS/DRIP IV STA (20:53)
[2024-08-08] MEDS ORDERED: SODIUM CHLORIDE 0.9% 100 ML IV PRN (21:06)
[2024-08-08] MEDS: PANTOprazole 40 MG in DEXTROSE 5% MINI-B 100 ML IV SCH (21:10)
[2024-08-08] MEDS: ONDANSETRON INJ 2 MG/ML 2 ML VIAL IV STA (21:10)
[2024-08-08] MEDS: LACTATED RINGER'S 1,000 ML IV SCH (21:10)
[2024-08-08] MEDS ORDERED: MELATONIN 3 MG TAB PO PRN (22:29)
[2024-08-08] MEDS: ACETAMINOPHEN 1,000 MG/100 ML VIAL IV PRN (22:46)
[2024-08-08 23:04] LABS: Hematocrit (blood only) 27.0 % (37.0-47.0); Hemoglobin 8.7 g/dl (12.0-16.0)
[2024-08-09] MEDS: ONDANSETRON INJ 2 MG/ML 2 ML VIAL IV PRN (03:24)
[2024-08-09 03:26] LABS: Hematocrit (blood only) 26.5 % (37.0-47.0); Hemoglobin 8.5 g/dl (12.0-16.0); Immature Granulocytes # (auto) 0.05 K/uL (0.01-0.20); Immature Granulocytes % (auto) 0.8 %; Mean Corpuscular Hemoglobin 30.4 pg (25.0-34.0); Mean Corpuscular Volume 94.6 fL (80.0-100.0); Platelet Count 154 K/uL (130-400); RDW Standard Deviation 50.7 fL (36.4-46.3); Red Blood Count 2.80 M/uL (4.20-5.40); White Blood Count 6.50 K/ul (4.8-10.8)
[2024-08-09 04:29] LABS: Alanine Aminotransferase 7.0 U/L (7-52); Albumin Globulin Ratio 1.6 (0.9-2); Alkaline Phosphatase 53.0 U/L (34-104); Anion Gap 6.0 (3-11); Bilirubin,Total 0.3 mg/dl (0.2-1.0); Blood Urea Nitrogen 49.0 mg/dl (6-23); Calcium 7.5 mg/dl (8.6-10.3); Carbon Dioxide 23.0 mmol/L (21-32); Chloride 112.0 mmol/L (98-107); Creatinine Clr Calc Pharmacy 90.3 ml/min; Globulin 1.9 gm/dl (2.5-4.0); Glucose 92.0 mg/dl (70-99(Fasting)); Magnesium 2.0 mg/dl (1.7-2.4); Potassium 3.5 mmol/L (3.5-5.1); Sodium 141.0 mmol/L (136-145); Total Protein 4.9 gm/dl (6.0-8.3)
[2024-08-09] MEDS: MoRPHine SULFATE 2 MG/ML CARP IV STA ×3 (07:19→23:18)
--- NOTE | 2024-08-09 07:58 | Gastrointestinal Consultation ---
Date of Consultation August 09, 2024 Assessment & Plan (1) Upper GI bleed: Clinical picture consistent with upper GI bleed. Differential diagnosis includes peptic ulcer disease as well as NSAID induced gastropathy. Unlikely varices with lack of underlying liver disease. Continue IV PPI drip will proceed with endoscopy. History of Present Illness Reason for Consultation: GI bleed Attending Physician: Sulaiman Zelaya MD History of Present Illness Patient presents with a several day history of epigastric pain nausea and black stool. No prior history of significant GI illnesses. She has been taking meloxicam over the last several days. She denies any history of liver disease. Prior endoscopy and colonoscopy several years ago were unremarkable. No history of alcohol abuse disorder. Allergies Allergy/AdvReac Type Severity Reaction Status Date / Time red dye Allergy Mild Unknown Verified 07/31/24 08:44 fentanyl Allergy Unknown uknown Verified 07/31/24 08:44 lithium Allergy Unknown Unknown Verified 07/31/24 08:44 varenicline [From Chantix] Allergy Unknown Unknown Verified 07/31/24 08:44 diuretics Allergy Mild previous Uncoded 07/31/24 08:44 bladder surgery Home Medications Medication Instructions Recorded Confirmed Type incontinence pad, liner, disp #264 ea 05/27/24 07/31/24 Rx (Poise Pads) furosemide 20 mg tablet 20 mg PO DAILY PRN swelling #30 05/29/24 08/08/24 Rx tabs lisinopril 2.5 mg tablet 2.5 mg PO DAILY #90 tabs 05/29/24 08/08/24 Rx amoxicillin 500 mg capsule 500 mg PO TID 14 days #42 caps 07/31/24 08/08/24 Rx meloxicam 15 mg tablet 15 mg PO DAILY PRN pain #30 tabs 07/31/24 08/08/24 Rx Patient History Medical History Urinary incontinence Surgical History H/O hand surgery History of bladder surgery Hx of tonsillectomy Hx of wisdom tooth extraction Family History Aunt Breast cancer Sister Breast cancer Denies family history of Diabetes Myocardial infarction Lung cancer Colorectal cancer Stroke Social History Smoking Status: Never smoker Tobacco Type: Cigarettes Age Started Using Tobacco: 62; Age Quit Using Tobacco: 63; packs per day: 0.5; Second Hand Exposure: No; Do You Dip or Chew Tobacco: No; Hx Alcohol Use: No Hx Substance Use: No Preferred Language: Cuban Communication Ability: Effective Visual Impairment: No Limitations Hearing Ability: Normal Tire Classifier Required: No Beliefs That Will Affect Care: None marital status: Current Living Situation: Alone Current Living Situation Comment: currently lives at [facility]" current occupational status: unemployed How many Children do You have: 2 Feels Safe at Home: Yes Safety Concerns: Feels Safe At This Time Childhood Exposure to Second-Hand Smoke: No Diet: regular caffeine: No during the past year weight has: increased > 10 lbs Dental Care, Regularly: No Physical Activity Frequency: Daily Seatbelt Use: always Sunscreen Use: No Assistive Devices: Walker Review of Systems Review of Systems: No fever No chills No SOB No CP No Abd pain Physical Exam Physical Exam: Eyes; anicteric HENT No masses Chest clear to A Cor S1, S2 physiologic Abd: softer nontender no masses Ext no edema Results & Data Vital Signs (Past 12 Hours) Vital Signs Temp Pulse Pulse Resp BP BP Pulse Ox 08/09/24 03:35 36.8 C 71 16 104/66 98 08/08/24 22:53 74 08/08/24 22:52 36.8 C 76 16 112/75 98 08/08/24 20:18 82 20 127/67 94 O2 Del Method 08/09/24 03:35 Room Air 08/08/24 22:53 08/08/24 22:52 Room Air 08/08/24 20:18 Room Air Laboratory Results Laboratory Results - last 48 hr 08/08/24 08/08/24 08/08/24 18:55 19:04 20:33 WBC 9.03 RBC 3.15 L Hgb 9.8 L Hct 30.1 L MCV 95.6 MCH 31.1 MCHC 32.6 RDW Std Deviation 50.4 H RDW Coeff of Rosetta 14.5 Plt Count 204 MPV 10.6 Immature Gran % (Auto) 0.8 Neut % (Auto) 74.9 Lymph % (Auto) 17.5 [place] % (Auto) 6.0 Eos % (Auto) 0.4 Baso % (Auto) 0.4 Neut # (Auto) 6.76 H Lymph # (Auto) 1.58 [place] # (Auto) 0.54 Eos # (Auto) 0.04 Baso # (Auto) 0.04 Immature Gran # (Auto) 0.07 PT 11.6 INR 1.1 APTT 23 PTT Ratio 0.9 D-Dimer 330 Sodium 141 Potassium 4.1 Chloride 111 H Carbon Dioxide 19 L Anion Gap 11 BUN 62 H Creatinine 0.66 Est Cr Clr Drug Dosing 98.5 eGFR 99.74 BUN/Creatinine Ratio 93.9 H Glucose 94 Calcium 8.3 L Magnesium Total Bilirubin 0.6 AST 17 ALT 9 Alkaline Phosphatase 62 Troponin I High Sens 4.3 5.4 B-Natriuretic Peptide 65 Total Protein 6.1 Albumin 3.5 Globulin 2.6 Albumin/Globulin Ratio 1.3 Nasal Screen MRSA (PCR) Stool Occult Bld Scrn Blood Type O Positive Blood Type Recheck Antibody Screen NEGATIVE Crossmatch See Detail 08/08/24 08/08/24 08/09/24 22:42 23:14 01:28 WBC RBC Hgb 8.7 L Hct 27.0 L MCV MCH MCHC RDW Std Deviation RDW Coeff of Rosetta Plt Count MPV Immature Gran % (Auto) Neut % (Auto) Lymph % (Auto) [place] % (Auto) Eos % (Auto) Baso % (Auto) Neut # (Auto) Lymph # (Auto) [place] # (Auto) Eos # (Auto) Baso # (Auto) Immature Gran # (Auto) PT INR APTT PTT Ratio D-Dimer Sodium Potassium Chloride Carbon Dioxide Anion Gap BUN Creatinine Est Cr Clr Drug Dosing eGFR BUN/Creatinine Ratio Glucose Calcium Magnesium Total Bilirubin AST ALT Alkaline Phosphatase Troponin I High Sens B-Natriuretic Peptide Total Protein Albumin Globulin Albumin/Globulin Ratio Nasal Screen MRSA (PCR) Negative Stool Occult Bld Scrn Positive A Blood Type Blood Type Recheck O Positive Antibody Screen Crossmatch 08/09/24 08/09/24 03:11 Unknown WBC 6.50 RBC 2.80 L Hgb 8.5 L Hct 26.5 L MCV 94.6 MCH 30.4 MCHC 32.1 RDW Std Deviation 50.7 H RDW Coeff of Rosetta 14.7 H Plt Count 154 MPV 10.5 Immature Gran % (Auto) 0.8 Neut % (Auto) 55.0 Lymph % (Auto) 32.8 [place] % (Auto) 7.7 Eos % (Auto) 2.8 Baso % (Auto) 0.9 Neut # (Auto) 3.58 Lymph # (Auto) 2.13 [place] # (Auto) 0.50 Eos # (Auto) 0.18 Baso # (Auto) 0.06 Immature Gran # (Auto) 0.05 PT INR APTT PTT Ratio D-Dimer Sodium 141 Potassium 3.5 Chloride 112 H Carbon Dioxide 23 Anion Gap 6 BUN 49 H Creatinine 0.72 Est Cr Clr Drug Dosing 90.3 eGFR 95.07 BUN/Creatinine Ratio 68.1 H Glucose 92 Calcium 7.5 L Magnesium 2.0 Total Bilirubin 0.3 AST 14 ALT 7 Alkaline Phosphatase 53 Troponin I High Sens B-Natriuretic Peptide Total Protein 4.9 L D Albumin 3.0 L Globulin 1.9 L Albumin/Globulin Ratio 1.6 Nasal Screen MRSA (PCR) Stool Occult Bld Scrn Positive A Blood Type Blood Type Recheck Antibody Screen Crossmatch Diagnostic Findings Chest X-Ray 08/08/24 18:57 Clinical History: Chest pain Technique: A frontal view of the chest was obtained Comparison is made to the prior examination dated 07/27/2024 Findings: There are no definite pulmonary infiltrates. The heart size is within normal limits. No pleural effusion or pneumothorax is seen. There is no definite pulmonary nodule. No fracture is noted. There is thoracic scoliosis and degenerative disc disease Impression: No active disease Electronically signed by Lazarus Almaguer 08-08-2024 7:36 PM PG Care Time/CCT Total # of Minutes Spent Total Time Spent with Patient: Total time spent is greater than 50% in coordination of care (as documented) at patient's floor/unit and/or counseling patient: Coding Level of Care Code 89378 INT INP/OBS CARE 3/75MIN Diagnoses Upper GI bleed K92.2
--- NOTE | 2024-08-09 10:36 | Hospitalist Progress Note ---
Date of Service August 09, 2024 Assessment & Plan (1) Upper GI bleed: Plan: -GI consult appreciated -Plan for EGD tmw 7 -con't protonix drip -IVF -heme 8.5 today (2) Anemia: Plan: -heme 8.5 -likley 2nd to UGIB (3) Moderate mitral regurgitation: Plan: -con't lisinopril Plan Patient is a 63-year-old female with past medical history of mitral regurg, chronic venous insufficiency, mild ascending aorta dilation, anxiety/depression. Patient presented due to black tarry stools x 2 days and upper midsternal burning constant chest pain. She is being admitted for an upper GI bleed with a BUN of 62, and 3.0 hemoglobin drop in 10 days. Dispo: PCU Admission and Anticipated Discharge Date Admission Date: August 08, 2024 Subjective No events overnight. Pt resting comfortably in bed. Review of Systems Review of Systems: CONST: Negative for fever, body aches and chills. HENT: Negative for neck pain/stiffness, headache, congestion, sore throat, swelling. EYES: Negative for discharge/pain or vision changes. RESP: Negative for cough/hemoptysis and shortness of breath. CV: Negative chest pain, difficulty breathing, palpitations. ABD: Negative pain, nausea, vomiting. : Negative increase frequency, dysuria, blood in urine or stool. MUSC: Negative for muscle aches, edema. SKIN: Negative rash, lesions/sores. NEURO: Negative headache, dizziness, weakness. Physical Exam Physical Exam: GENERAL APPEARANCE NAD, activity normal for age, well developed/ well nourished, no cyanosis, pallor, or diaphoresis. EYES lids/conjunctiva normal. EARS/NOSE/THROAT Mucous membranes moist, nares normal, lips/teeth normal uvula midline without oral pharyngeal erythema, exudate or swelling TMs normal bilaterally. No lymphangitis/lymphedema. HEAD/NECK normocephalic atraumatic, no facial trauma, neck is supple. RESPIRATORY respiratory effort normal, speaks in full sentences, no tripod position, no accessory muscle use. Lungs clear to auscultation without rhonchi, wheezes, rales CARDIAC Regular rate and rhythm, no edema. ABDOMINAL Soft, ND/NT. No evidence of fluid wave. No pulsatile masses on exam, rebound tenderness, Wheeler sign or pain over Mcburney's point. MUSCLES/EXTREMITIES No abnormal range of motion, no swelling. SKIN Warm, pink and dry. No rashes, dermatoses, petechiae or lesions. NEUROLOGICAL Speech is clear and appropriate. Normal level of consciousness. Gait and coordination are normal. 5/5 strength in all extremities. PSYCH Normal mood and affect. Judgement/competence is appropriate Results & Data Results & Data Vital Signs (Past 12 Hours) Vital Signs Temp Pulse Pulse Resp BP BP Pulse Ox 08/09/24 08:00 61 08/09/24 08:00 08/09/24 07:58 36.7 C 61 17 94/58 L 97 08/09/24 03:35 36.8 C 71 16 104/66 98 08/08/24 22:53 74 08/08/24 22:52 36.8 C 76 16 112/75 98 O2 Del Method 08/09/24 08:00 08/09/24 08:00 Room Air 08/09/24 07:58 Room Air 08/09/24 03:35 Room Air 08/08/24 22:53 08/08/24 22:52 Room Air PG Care Time/CCT Total # of Minutes Spent Total Time Spent with Patient: Total time spent is greater than 50% in coordination of care (as documented) at patient's floor/unit and/or counseling patient: Coding Level of Care Code 17856 SUB INP/OBS CARE 2/35MIN Diagnoses Upper GI bleed K92.2 Anemia D64.9 Moderate mitral regurgitation I34.0
[2024-08-09 11:33] LABS: Hematocrit (blood only) 23.6 % (37.0-47.0); Hemoglobin 7.8 g/dl (12.0-16.0)
[2024-08-09] MEDS: PROCHLORPERAZINE 10 MG in SYRINGE 8 ML IV ONE (23:18)
[2024-08-09] MEDS: ACETAMINOPHEN 325 MG TAB PO PRN (23:21)
--- NOTE | 2024-08-10 06:21 | Gastroenterology Progress Note ---
Date of Service August 10, 2024 Assessment & Plan (1) Acute upper GI bleed: Plan: Hemodynamically stable no recent episodes of melena. Will proceed with endoscopy today. Admission and Anticipated Discharge Date Admission Date: August 08, 2024 Subjective Resting comfortably no recent bowel movements since yesterday. No shortness of breath no chest pain mild epigastric discomfort. Physical Exam Physical Exam: No acute distress Respiratory rate regular Cardiac rhythm regular Abdomen soft nontender Results & Data Results & Data Vital Signs (Past 12 Hours) Vital Signs Temp Pulse Resp BP Pulse Ox O2 Del Method 08/10/24 04:17 36.5 C 72 17 105/69 97 Room Air 08/10/24 00:07 36.7 C 58 L 17 109/69 98 Room Air 08/09/24 20:25 36.7 C 69 17 122/70 100 Room Air Laboratory Results Laboratory Results - last 48 hr 08/08/24 08/08/24 08/08/24 18:55 19:04 20:33 WBC 9.03 RBC 3.15 L Hgb 9.8 L Hct 30.1 L MCV 95.6 MCH 31.1 MCHC 32.6 RDW Std Deviation 50.4 H RDW Coeff of [place]etta 14.5 Plt Count 204 MPV 10.6 Immature Gran % (Auto) 0.8 Neut % (Auto) 74.9 Lymph % (Auto) 17.5 Saline % (Auto) 6.0 Eos % (Auto) 0.4 Baso % (Auto) 0.4 Neut # (Auto) 6.76 H Lymph # (Auto) 1.58 Saline # (Auto) 0.54 Eos # (Auto) 0.04 Baso # (Auto) 0.04 Immature Gran # (Auto) 0.07 PT 11.6 INR 1.1 APTT 23 PTT Ratio 0.9 D-Dimer 330 Sodium 141 Potassium 4.1 Chloride 111 H Carbon Dioxide 19 L Anion Gap 11 BUN 62 H Creatinine 0.66 Est Cr Clr Drug Dosing 98.5 eGFR 99.74 BUN/Creatinine Ratio 93.9 H Glucose 94 Calcium 8.3 L Magnesium Total Bilirubin 0.6 AST 17 ALT 9 Alkaline Phosphatase 62 Troponin I High Sens 4.3 5.4 B-Natriuretic Peptide 65 Total Protein 6.1 Albumin 3.5 Globulin 2.6 Albumin/Globulin Ratio 1.3 Nasal Screen MRSA (PCR) Stool Occult Bld Scrn Blood Type O Positive Blood Type Recheck Antibody Screen NEGATIVE Crossmatch See Detail 08/08/24 08/08/24 08/09/24 22:42 23:14 01:28 WBC RBC Hgb 8.7 L Hct 27.0 L MCV MCH MCHC RDW Std Deviation RDW Coeff of [place]etta Plt Count MPV Immature Gran % (Auto) Neut % (Auto) Lymph % (Auto) Saline % (Auto) Eos % (Auto) Baso % (Auto) Neut # (Auto) Lymph # (Auto) Saline # (Auto) Eos # (Auto) Baso # (Auto) Immature Gran # (Auto) PT INR APTT PTT Ratio D-Dimer Sodium Potassium Chloride Carbon Dioxide Anion Gap BUN Creatinine Est Cr Clr Drug Dosing eGFR BUN/Creatinine Ratio Glucose Calcium Magnesium Total Bilirubin AST ALT Alkaline Phosphatase Troponin I High Sens B-Natriuretic Peptide Total Protein Albumin Globulin Albumin/Globulin Ratio Nasal Screen MRSA (PCR) Negative Stool Occult Bld Scrn Positive A Blood Type Blood Type Recheck O Positive Antibody Screen Crossmatch 08/09/24 08/09/24 08/09/24 03:11 11:14 Unknown WBC 6.50 RBC 2.80 L Hgb 8.5 L 7.8 L Hct 26.5 L 23.6 L MCV 94.6 MCH 30.4 MCHC 32.1 RDW Std Deviation 50.7 H RDW Coeff of [place]etta 14.7 H Plt Count 154 MPV 10.5 Immature Gran % (Auto) 0.8 Neut % (Auto) 55.0 Lymph % (Auto) 32.8 Saline % (Auto) 7.7 Eos % (Auto) 2.8 Baso % (Auto) 0.9 Neut # (Auto) 3.58 Lymph # (Auto) 2.13 Saline # (Auto) 0.50 Eos # (Auto) 0.18 Baso # (Auto) 0.06 Immature Gran # (Auto) 0.05 PT INR APTT PTT Ratio D-Dimer Sodium 141 Potassium 3.5 Chloride 112 H Carbon Dioxide 23 Anion Gap 6 BUN 49 H Creatinine 0.72 Est Cr Clr Drug Dosing 90.3 eGFR 95.07 BUN/Creatinine Ratio 68.1 H Glucose 92 Calcium 7.5 L Magnesium 2.0 Total Bilirubin 0.3 AST 14 ALT 7 Alkaline Phosphatase 53 Troponin I High Sens B-Natriuretic Peptide Total Protein 4.9 L D Albumin 3.0 L Globulin 1.9 L Albumin/Globulin Ratio 1.6 Nasal Screen MRSA (PCR) Stool Occult Bld Scrn Positive A Blood Type Blood Type Recheck Antibody Screen Crossmatch PG Care Time/CCT Total # of Minutes Spent Total Time Spent with Patient: Total time spent is greater than 50% in coordination of care (as documented) at patient's floor/unit and/or counseling patient: Coding Level of Care Code 00240 SUB INP/OBS CARE 2/35MIN Diagnoses Acute upper GI bleed K92.2
[2024-08-10] MEDS ORDERED: PROPOFOL IV EMULSION 10 MG/ML 20 ML VIAL IV ONE ×2 (07:01→07:40)
[2024-08-10] MEDS ORDERED: SUCCINYLCHOLINE 100MG/5ML SYR IV ONE (07:01)
[2024-08-10] MEDS ORDERED: ATROPINE SULFATE 0.1 MG/ML 10ML SYR IV PRN (07:34)
[2024-08-10] MEDS ORDERED: ONDANSETRON INJ 2 MG/ML 2 ML VIAL IV PRN (07:34)
[2024-08-10] MEDS ORDERED: HYDROmorphone INJ 1 MG/ML SYRINGE IV PRN (07:34)
--- NOTE | 2024-08-10 07:34 | Anesthesiology Consultation ---
Date of Service August 10, 2024 Assessment & Plan ASA ASA3 Proposed Anesthesia Anesthesia Type: MAC Risk / Benefits Reviewed With: PT / POA / Parent / Guardian, Accepts Plan and Informed Consent Obtained History Surgery Operation Date: 08/10/24 07:30 Proposed Procedures p Esophagogastroduodenoscopy - Uday Eaton MD Height/Weight Height: 5 ft 4 in Weight: 90.446 kg Allergies Allergy/AdvReac Type Severity Reaction Status Date / Time red dye Allergy Mild Unknown Verified 07/31/24 08:44 fentanyl Allergy Unknown uknown Verified 07/31/24 08:44 lithium Allergy Unknown Unknown Verified 07/31/24 08:44 varenicline [From Chantix] Allergy Unknown Unknown Verified 07/31/24 08:44 diuretics Allergy Mild previous Uncoded 07/31/24 08:44 bladder surgery Medications Home Medications Medication Instructions Recorded Confirmed Last Taken incontinence pad, liner, disp #264 ea 05/27/24 07/31/24 Unknown (Poise Pads) furosemide 20 mg tablet 20 mg PO DAILY PRN swelling #30 05/29/24 08/08/24 Unknown tabs lisinopril 2.5 mg tablet 2.5 mg PO DAILY #90 tabs 05/29/24 08/08/24 Unknown amoxicillin 500 mg capsule 500 mg PO TID 14 days #42 caps 07/31/24 08/08/24 Unknown meloxicam 15 mg tablet 15 mg PO DAILY PRN pain #30 tabs 07/31/24 08/08/24 Unknown Active Medications Generic Name Dose Route Start Last Admin Trade Name Freq PRN Reason Stop Dose Admin Acetaminophen 650 mg 08/09/24 18:31 08/09/24 23:21 Acetaminophen 325 Mg Tab PO 09/08/24 18:30 650 mg Q4H PRN Administration Pain Pantoprazole Sodium 40 mg/ 100 mls @ 20 mls/hr 08/08/24 20:45 08/10/24 03:37 Dextrose IV 09/07/24 20:44 8 mg/hr Q5H MO 20 mls/hr Administration 8 MG/HR Lactated Ringer's 1,000 mls @ 80 mls/hr 08/08/24 21:00 08/09/24 22:44 Lr IV 08/11/24 20:59 80 mls/hr .[id number] MO Administration Lisinopril 2.5 mg 08/09/24 09:00 08/09/24 09:27 Lisinopril 2.5 Mg Tab PO 09/08/24 08:59 Not Given DAILY MO Ondansetron HCl 4 mg 08/08/24 22:29 08/09/24 20:26 Ondansetron Inj 2 Mg/Ml 2 Ml Vial IV 09/07/24 22:28 4 mg Q6H PRN Administration Nausea And Vomiting NPO Date Last Intake of Fluids: 08/10/24 Time Last Intake of Fluids: 00:00 Date Last Intake of Solids: 08/10/24 Time Last Intake of Solids: 00:00 Past Medical History Medical History Urinary incontinence Exercise / Class Metabolic Activity III < 4 Walking/Shop/Light housework Past Family History Family History Aunt Breast cancer Sister Breast cancer Denies family history of Diabetes Myocardial infarction Lung cancer Colorectal cancer Stroke Past Surgical History Surgical History H/O hand surgery History of bladder surgery Hx of tonsillectomy Hx of wisdom tooth extraction Past Anesthesia History No Hx of Anesthesia Complications and No Family Hx of Anesthesia Complications History of PONV No Hx of PONV and No Hx of Motion Sickness Social History Smoking Status: Never smoker Do You Dip or Chew Tobacco: No Hx Alcohol Use: No Hx Substance Use: No Review of Systems denies fever/cough/ colds/ chest pain/ SOB/ DARLENE denies DARLENE Physical Exam Vital Signs Last Vital Signs Temp 36.5 C 08/10/24 04:17 Pulse 72 08/10/24 04:17 Resp 17 08/10/24 04:17 BP 105/69 08/10/24 04:17 Pulse Ox 97 08/10/24 04:17 O2 Del Method Room Air 08/10/24 04:17 ENMT Mouth: no TMJ abnormality and no dentition abnormality Thyromental Distance: > or= 3.5 Finger Breadths Mallampati Class: II Neck neck extension not limited Respiratory normal respiratory effort; no respiratory distress Auscultation: lungs clear to auscultation bilaterally Cardiovascular Rate/Rhythm: regular rate and regular rhythm Neurologic moves all extremities Psychiatric Orientation: alert and oriented x 3 Testing Laboratory Results 08/09/24 11:14 08/09/24 03:11 PT 11.6 Seconds (9.0-12.0) 08/08/24 18:55 INR 1.1 (0.9-1.1) 08/08/24 18:55 APTT 23 Seconds (21-31) 08/08/24 18:55 Blood Type O Positive 08/08/24 19:04 Antibody Screen NEGATIVE 08/08/24 19:04
[2024-08-10] MEDS ORDERED: LIDOCAINE 2% 2 ML VIAL/AMP(20MG/ML) INFIL ONE (07:40)
--- NOTE | 2024-08-10 08:03 | GI REPORT ---
[facility] Patient: CATHI ALMANZA : 1960 Sex at : Female Age: 63 Years Procedure: Upper GI endoscopy Date: 08/10/2024 Attending Physician: Uday Eaton MD Referring MD: Sulaiman Zelaya MD Indications: - Suspected upper gastrointestinal bleeding Medications: - Monitored Anesthesia Care Complications: - No immediate complications. Procedure: - Prior to the procedure, a History and Physical was performed, and patient medications and allergies were reviewed. The patient's tolerance of previous anesthesia was also reviewed. The risks and benefits of the procedure and the sedation options and risks were discussed with the patient. All questions were answered, and informed consent was obtained. [Anticoagulant Agents] [Days Prior to Procedure]. [ASA Grade]. After reviewing the risks and benefits, the patient was deemed in satisfactory condition to undergo the procedure. - The egd scope was introduced through the mouth and advanced to the second part of the duodenum. - The upper GI endoscopy was accomplished without difficulty. - The patient tolerated the procedure well. Findings: - The examined esophagus was normal. - Two non-bleeding cratered gastric ulcers with no stigmata of bleeding were found in the gastric antrum. The largest lesion was 5 mm in largest dimension. - Multiple small erosions with no bleeding and no stigmata of recent bleeding were found in the gastric antrum and in the gastric body. Biopsies were taken with a cold forceps for Helicobacter pylori testing. - The examined duodenum was normal. Impression: - Normal esophagus. - Non-bleeding gastric ulcers with no stigmata of bleeding. - Erosive gastropathy with no bleeding and no stigmata of recent bleeding. Biopsied. - Normal examined duodenum. Recommendation: - Can advance diet as tolerated. Can switch to oral PPI twice daily. If hemoglobin stable can consider discharge tomorrow. - Patient has a contact number available for emergencies. The signs and symptoms of potential delayed complications were discussed with the patient. Return to normal activities tomorrow. Written discharge instructions were provided to the patient. Procedure Code(s): - 16870, Esophagogastroduodenoscopy, flexible, transoral; with biopsy, single or multiple Diagnosis Code(s): - K25.9, Gastric ulcer, unspecified as acute or chronic, without hemorrhage or perforation - K31.89, Other diseases of stomach and duodenum CPT(R) - 2023 copyright [employer]. All Rights Reserved. The CPT codes, CCI edits and ICD codes generated are intended as suggestions and were generated based on input data. These codes are preliminary and upon studio producer review may be revised to meet current compliance and payer requirements. The provider is responsible for the final determination of appropriate codes, and modifiers. Uday Eaton MD This document has been electronically signed. Note Initiated:08/10/2024 Note Completed:08/10/2024 8:02 AM Uday Eaton MD This document has been electronically signed. Note Amended:08/10/2024 8:09 AM \\[email or web address]\[id number]
[2024-08-10 08:39] LABS: Hematocrit (blood only) 25.0 % (37.0-47.0); Hemoglobin 8.3 g/dl (12.0-16.0); Mean Corpuscular Hemoglobin 31.4 pg (25.0-34.0); Mean Corpuscular Volume 94.7 fL (80.0-100.0); Platelet Count 144 K/uL (130-400); RDW Standard Deviation 51.7 fL (36.4-46.3); Red Blood Count 2.64 M/uL (4.20-5.40); White Blood Count 4.31 K/ul (4.8-10.8)
--- NOTE | 2024-08-10 08:47 | Anesthesiology Progress Note ---
Date of Service August 10, 2024 Anesthesia Post Procedure Vital Signs Vital Signs: Temp Pulse Pulse Pulse Resp BP BP 08/10/24 08:30 59 L 14 102/47 L 08/10/24 08:20 36.2 C L 60 15 103/54 L 08/10/24 08:10 64 16 100/58 L 08/10/24 08:00 36.0 C L 66 14 82/53 L 08/10/24 07:00 65 08/10/24 04:17 36.5 C 72 17 105/69 08/10/24 00:07 36.7 C 58 L 17 109/69 08/09/24 20:25 36.7 C 69 17 122/70 08/09/24 16:00 36.7 C 66 19 105/69 08/09/24 13:52 65 08/09/24 11:49 36.7 C 58 L 20 105/68 Pulse Ox O2 Del Method O2 Flow Rate 08/10/24 08:30 100 Room Air 08/10/24 08:20 100 Room Air 08/10/24 08:10 100 Oxymask 2 08/10/24 08:00 98 Oxymask 4 08/10/24 07:00 08/10/24 04:17 97 Room Air 08/10/24 00:07 98 Room Air 08/09/24 20:25 100 Room Air 08/09/24 16:00 99 Room Air 08/09/24 13:52 08/09/24 11:49 98 Room Air Pain Intensity Chest: Pain Intensity: 7 Transfer of Care Handoff Completed per policy Notes Mental Status: alert / awake / arousable and participated in evaluation Patient Amnestic to Procedure: Yes Nausea / Vomiting: adequately controlled Pain: adequately controlled Airway Patency, RR, SpO2: stable & adequate BP & HR: stable & adequate Hydration State: stable & adequate Anesthetic Complications: no major complications apparent and Pt Satisfied with anesthetic care
[2024-08-10 09:02] LABS: Anion Gap 4.0 (3-11); Blood Urea Nitrogen 11.0 mg/dl (6-23); Calcium 7.5 mg/dl (8.6-10.3); Carbon Dioxide 27.0 mmol/L (21-32); Chloride 110.0 mmol/L (98-107); Creatinine Clr Calc Pharmacy 109.1 ml/min; Glucose 90.0 mg/dl (70-99(Fasting)); Potassium 3.7 mmol/L (3.5-5.1); Sodium 141.0 mmol/L (136-145)
--- NOTE | 2024-08-10 10:31 | Hospitalist Progress Note ---
Date of Service August 10, 2024 Assessment & Plan (1) Upper GI bleed: Plan: -GI consult appreciated -EGD showed ulcers, no active bleeding -con't protonix -advance to reg diet -f/u cbc in am -d/c home 08/11 (2) Anemia: Plan: -heme 8.3 -likely 2nd to UGIB (3) Moderate mitral regurgitation: Plan: -con't lisinopril Plan Patient is a 63-year-old female with past medical history of mitral regurg, chronic venous insufficiency, mild ascending aorta dilation, anxiety/depression. Patient presented due to black tarry stools x 2 days and upper midsternal burning constant chest pain. She is being admitted for an upper GI bleed with a BUN of 62, and 3.0 hemoglobin drop in 10 days. Dispo: PCU Admission and Anticipated Discharge Date Admission Date: August 08, 2024 Subjective Pt had EGD this am. Review of Systems Review of Systems: CONST: Negative for fever, body aches and chills. HENT: Negative for neck pain/stiffness, headache, congestion, sore throat, swelling. EYES: Negative for discharge/pain or vision changes. RESP: Negative for cough/hemoptysis and shortness of breath. CV: Negative chest pain, difficulty breathing, palpitations. ABD: Negative pain, nausea, vomiting. : Negative increase frequency, dysuria, blood in urine or stool. MUSC: Negative for muscle aches, edema. SKIN: Negative rash, lesions/sores. NEURO: Negative headache, dizziness, weakness. Physical Exam Physical Exam: GENERAL APPEARANCE NAD, activity normal for age, well developed/ well nourished, no cyanosis, pallor, or diaphoresis. EYES lids/conjunctiva normal. EARS/NOSE/THROAT Mucous membranes moist, nares normal, lips/teeth normal uvula midline without oral pharyngeal erythema, exudate or swelling TMs normal bilaterally. No lymphangitis/lymphedema. HEAD/NECK normocephalic atraumatic, no facial trauma, neck is supple. RESPIRATORY respiratory effort normal, speaks in full sentences, no tripod position, no accessory muscle use. Lungs clear to auscultation without rhonchi, wheezes, rales CARDIAC Regular rate and rhythm, no edema. ABDOMINAL Soft, ND/NT. No evidence of fluid wave. No pulsatile masses on exam, rebound tenderness, Wheeler sign or pain over Mcburney's point. MUSCLES/EXTREMITIES No abnormal range of motion, no swelling. SKIN Warm, pink and dry. No rashes, dermatoses, petechiae or lesions. NEUROLOGICAL Speech is clear and appropriate. Normal level of consciousness. Gait and coordination are normal. 5/5 strength in all extremities. PSYCH Normal mood and affect. Judgement/competence is appropriate Results & Data Results & Data Vital Signs (Past 12 Hours) Vital Signs Temp Pulse Pulse Pulse Resp BP BP 08/10/24 09:13 99/52 L 08/10/24 08:52 62 17 95/52 L 08/10/24 08:30 59 L 14 102/47 L 08/10/24 08:20 36.2 C L 60 15 103/54 L 08/10/24 08:10 64 16 100/58 L 08/10/24 08:00 08/10/24 08:00 36.0 C L 66 14 82/53 L 08/10/24 07:00 65 08/10/24 04:17 36.5 C 72 17 105/69 08/10/24 00:07 36.7 C 58 L 17 109/69 Pulse Ox O2 Del Method O2 Flow Rate 08/10/24 09:13 08/10/24 08:52 99 Room Air 08/10/24 08:30 100 Room Air 08/10/24 08:20 100 Room Air 08/10/24 08:10 100 Oxymask 2 08/10/24 08:00 Room Air 08/10/24 08:00 98 Oxymask 4 08/10/24 07:00 08/10/24 04:17 97 Room Air 08/10/24 00:07 98 Room Air PG Care Time/CCT Total # of Minutes Spent Total Time Spent with Patient: Total time spent is greater than 50% in coordination of care (as documented) at patient's floor/unit and/or counseling patient: Coding Level of Care Code 14176 SUB INP/OBS CARE 2/35MIN Diagnoses Upper GI bleed K92.2 Anemia D64.9 Moderate mitral regurgitation I34.0
[2024-08-10] MEDS ORDERED: Nursing to Pharmacy Communication SCH (11:15)
[2024-08-11 06:07] LABS: Hematocrit (blood only) 28.4 % (37.0-47.0); Hemoglobin 9.0 g/dl (12.0-16.0); Mean Corpuscular Hemoglobin 30.6 pg (25.0-34.0); Mean Corpuscular Volume 96.6 fL (80.0-100.0); Platelet Count 170 K/uL (130-400); RDW Standard Deviation 52.1 fL (36.4-46.3); Red Blood Count 2.94 M/uL (4.20-5.40); White Blood Count 4.64 K/ul (4.8-10.8)
[2024-08-11 06:23] LABS: Anion Gap 3.0 (3-11); Blood Urea Nitrogen 13.0 mg/dl (6-23); Calcium 8.2 mg/dl (8.6-10.3); Carbon Dioxide 30.0 mmol/L (21-32); Chloride 107.0 mmol/L (98-107); Creatinine Clr Calc Pharmacy 81.5 ml/min; Glucose 92.0 mg/dl (70-99(Fasting)); Potassium 4.1 mmol/L (3.5-5.1); Sodium 140.0 mmol/L (136-145)
[2024-08-11 07:38] VITALS: BP 110/69; PULSE 59; RESP 15; TEMP 98.1; O2SAT 99
--- NOTE | 2024-08-11 09:15 | Gastroenterology Progress Note ---
Date of Service August 11, 2024 Assessment & Plan (1) Gastric ulcer: Plan: Gastric ulcers and erosions probably secondary to NSAID use. No active bleeding no stigmata. Okay for discharge today. Will have her follow-up with GI as an outpatient. Recommend sending her home on iron supplement. Biopsies for H. pylori still pending. Admission and Anticipated Discharge Date Admission Date: August 08, 2024 Subjective Resting comfortably no abdominal pain no shortness of breath no chest pain Physical Exam Physical Exam: No acute distress Respiratory rate regular Cardiac rhythm regular Abdomen soft nontender Results & Data Results & Data Vital Signs (Past 12 Hours) Vital Signs Temp Pulse Resp BP Pulse Ox O2 Del Method 08/11/24 07:37 36.7 C 59 L 15 110/69 99 Room Air Laboratory Results Laboratory Results - last 48 hr 08/09/24 08/10/24 08/11/24 11:14 08:23 05:30 WBC 4.31 L 4.64 L RBC 2.64 L 2.94 L Hgb 7.8 L 8.3 L 9.0 L Hct 23.6 L 25.0 L 28.4 L MCV 94.7 96.6 MCH 31.4 30.6 MCHC 33.2 31.7 L RDW Std Deviation 51.7 H 52.1 H RDW Coeff of [place] 15.0 H 14.8 H Plt Count 144 170 MPV 10.3 10.3 Sodium 141 140 Potassium 3.7 4.1 Chloride 110 H 107 Carbon Dioxide 27 30 Anion Gap 4 3 BUN 11 D 13 Creatinine 0.59 L 0.79 Est Cr Clr Drug Dosing 109.1 81.5 eGFR 102.47 85.05 BUN/Creatinine Ratio 18.6 16.5 Glucose 90 92 Calcium 7.5 L 8.2 L PG Care Time/CCT Total # of Minutes Spent Total Time Spent with Patient: Total time spent is greater than 50% in coordination of care (as documented) at patient's floor/unit and/or counseling patient: Coding Level of Care Code 42979 SUB INP/OBS CARE 2/35MIN Diagnoses Gastric ulcer K25.9
--- NOTE | 2024-08-11 12:10 | Discharge Summary ---
Discharge Summary Date of Service August 11, 2024 Principal Dx & Hospital Course #1 = Principal Diagnosis (1) Upper GI bleed: -GI consult appreciated -EGD showed ulcers, no active bleeding -con't protonix -advance to reg diet -f/u cbc in am -d/c home 08/11 (2) Anemia: -heme 8.3 -likely 2nd to UGIB (3) Moderate mitral regurgitation: -con't lisinopril Plan Patient is a 63-year-old female with past medical history of mitral regurg, chronic venous insufficiency, mild ascending aorta dilation, anxiety/depression. Patient presented due to black tarry stools x 2 days and upper midsternal burning constant chest pain. She is being admitted for an upper GI bleed with a BUN of 62, and 3.0 hemoglobin drop in 10 days. Dispo: PCU Admission HPI Per Admitting Provider Patient is a 63-year-old female with past medical history of mitral regurg, chronic venous insufficiency, mild ascending aorta dilation, anxiety/depression. Patient presented due to black tarry stools x 2 days and upper midsternal burning constant chest pain. She is being admitted for an upper GI bleed with a BUN of 62, and 3.0 hemoglobin drop in 10 days. Patient seen at bedside. She recently started a job at [employer] and is greatly concerned about losing her job that she just took off last week due to feeling sick. Patient stated she went back to work Monday and developed significant worsening upper midsternal burning, constant chest pain that gets worse with eating. She also has associated black tarry stools that has become worse over the past few days and she had approximately 15 episodes today with diarrhea as well as incontinence. She stated she has been nauseous, diaphoretic, short of breath, and with poor appetite for several days. She denies any history of GI bleeding and stated she previously had an EGD and colonoscopy several years ago that looked okay. Patient was taking meloxicam once daily for approximately 3 days earlier this week due to feeling sick. She denies any recent Pepto-Bismol use, iron supplements, steroid use, alcohol use. She denies any nicotine use. She has not taken her home medications today, she has Lasix as needed and takes every few days. She wishes to be DNR/DNI. Discussed blood consents at bedside, patient would like to think about this for little bit, with hemoglobin stable at 9.8 this is reasonable. Discharge Exam GENERAL APPEARANCE NAD, activity normal for age, well developed/ well nourished, no cyanosis, pallor, or diaphoresis. EYES lids/conjunctiva normal. EARS/NOSE/THROAT Mucous membranes moist, nares normal, lips/teeth normal uvula midline without oral pharyngeal erythema, exudate or swelling TMs normal bilaterally. No lymphangitis/lymphedema. HEAD/NECK normocephalic atraumatic, no facial trauma, neck is supple. RESPIRATORY respiratory effort normal, speaks in full sentences, no tripod position, no accessory muscle use. Lungs clear to auscultation without rhonchi, wheezes, rales CARDIAC Regular rate and rhythm, no edema. ABDOMINAL Soft, ND/NT. No evidence of fluid wave. No pulsatile masses on exam, rebound tenderness, Wheeler sign or pain over Mcburney's point. MUSCLES/EXTREMITIES No abnormal range of motion, no swelling. SKIN Warm, pink and dry. No rashes, dermatoses, petechiae or lesions. NEUROLOGICAL Speech is clear and appropriate. Normal level of consciousness. Gait and coordination are normal. 5/5 strength in all extremities. PSYCH Normal mood and affect. Judgement/competence is appropriate Discharge Plan Discharge Items Patient Disposition: Home - Self-Care Reason For Visit: UGIB Discharge Diagnosis: UGIB Condition on Discharge: Good Activity: Resume your previous activity Non-emergency contact: Primary Care Provider Call non-emergency contact if: you have any medication questions Follow-up/Referrals: Gadiel Granda DO [Primary Care Provider] - Diet: Regular Addtl Attending Provider Instructions: Follow up with PMD in 2 weeks Pending Studies at Discharge: No Stand-Alone Forms: My [facility] Work/School Release, Smoking Cessation Medications and DC Order Prescriptions: New pantoprazole 40 mg Tablet,Delayed Release (Dr/Ec) 40 mg PO BID Qty: 60 0RF Continued meloxicam 15 mg tablet 15 mg PO DAILY PRN (Reason: pain) Qty: 30 2RF furosemide 20 mg tablet 20 mg PO DAILY PRN (Reason: swelling) Qty: 30 11RF Rx Instructions: last filled 04/04 30 day supply #30 lisinopril 2.5 mg tablet 2.5 mg PO DAILY Qty: 90 3RF Rx Instructions: last filled 04/12/24 90 day supply #90 (DME) [employer] Pads Pad See Rx Instructions .Route Qty: 264 6RF Rx Instructions: change 8 times daily Discontinued amoxicillin 500 mg capsule 500 mg PO TID 14 Days Qty: 42 0RF Rx Instructions: 14 DAY COURSE STARTED 07/31/24 FROM PRIMARY CARE VISIT Discharge Orders: Discharge Order (Routine); Ordered 08/11/24 Ordered By: Sulaiman Zelaya Admission Data Admit Date/Time: 08/08/24 21:05 Attending Provider: Sulaiman Zelaya Admit Provider: Calvin Ortega Primary Care Provider: Gadiel Granda Other Providers: Calvin Ortega; Uday Eaton I Hospital Stay Data Consultations 08/08/24 20:28 ED Decision to Admit Stat 08/08/24 22:29 Consult Gastroenterology Routine Procedures Performed Operation Date: 08/10/24 07:30 Actual Procedures p Esophagogastroduodenoscopy(Not Applicable) - Uday Eaton MD Pending Results Patient Have Any Pending Studies at Discharge: No Discharge Instructions Given to Patient (Per Discharging Provider) Follow up with PMD in 2 weeks Total Time Total Time Spent Total Time Spent (In Minutes): 50 Coding Level of Care Code 20334 INP/OBS DISCH >30 MIN Diagnoses Upper GI bleed K92.2 Anemia D64.9 Moderate mitral regurgitation I34.0
--- NOTE | 2024-08-11 22:09 | Electrocardiogram Report ---
Test Reason : Blood Pressure : */* mmHG Vent. Rate : 74 BPM Atrial Rate : 74 BPM P-R Int : 126 ms QRS Dur : 86 ms QT Int : 410 ms P-R-T Axes : 44 30 7 degrees QTcB Int : 455 ms Normal sinus rhythm T wave abnormality, consider anterolateral ischemia Abnormal ECG When compared with ECG of 08-Aug-2024 18:55, (unconfirmed) No significant change was found Confirmed by Joseph Hernandez ([id number]) on 08/11/2024 10:09:12 PM Referred By: REFERRED SELF Confirmed By: Joseph Hernandez
--- NOTE | 2024-08-11 22:15 | Electrocardiogram Report ---
Test Reason : Blood Pressure : */* mmHG Vent. Rate : 91 BPM Atrial Rate : 91 BPM P-R Int : 126 ms QRS Dur : 84 ms QT Int : 364 ms P-R-T Axes : 44 27 26 degrees QTcB Int : 447 ms Normal sinus rhythm Possible Left atrial enlargement Nonspecific ST and T wave abnormality Abnormal ECG When compared with ECG of 27-Jul-2024 16:30, Vent. rate has increased by 34 bpm Nonspecific T wave abnormality now evident in Anterior leads Confirmed by Joseph Hernandez ([id number] on 08/11/2024 10:15:18 PM Referred By: REFERRED SELF Confirmed By: Joseph Hernandez
--- NOTE | 2024-08-13 14:28 | Coding Query ---
ANEMIA To promote full compliance with coding requirements relating to patient care, physician participation is requested in all cases of paper cup machine tender uncertainty. Please assist us with the question(s) below: Coding Question(s): The record reflects the following clinical findings: Anemia: -heme 8.3 -likely 2nd to UGIB If these findings are indicative of anemia, please specify the known or suspected type by placing an "X" within the parenthesis (x). If other, please document type. Examples are: (X ) Acute blood loss anemia ( ) Chronic blood loss anemia ( ) Anemia of chronic disease ( ) Iron deficient anemia ( ) Anemia, unspecified or other ( ) Other: (please specify) Thank you Sara CHARLES
== END 2024-08-11 14:27 | disposition home or self-care (01) | DRG 378 ==
LOC: ED 18:45 → SUATTDRO 21:05 → 2E 21:05 → 3N 08-10 13:37

== ENCOUNTER 2025-01-01 09:11 | Observation (INO) ==
--- NOTE | 2024-12-26 15:13 | Anesthesiology Consultation ---
Date of Service December 26, 2024 Assessment & Plan (1) Encounter for pre-operative examination: Chart Review Chart Review: Acceptable Risk for Surgery (pending anesthesia evaluation DOS ) and Patient NOT seen in Pre Admission Testing Initially scheduled for right partial glossectomy 12/10/24 (surgery cancelled due to patient being in ED on 12/05/24 and needing updated PCP clearance; Dr Scott aware of upcoming tien- per workload messages- Dr Scott is rescheduling partial glossectomy for 2025) [facility]- [facility]- per 11/05/24 general surgery note- charleen velez aware of patient's living situation- "Coordinate with casework specialist plan for for appropriate housing for postoperative convalescence. We would likely keep her overnight after surgery and then discharge her the following day." - Discussed case with Dr Saini (including the minor EKG changes on preop EKG)- patient can proceed as scheduled - Check BSG AM DOS - Will leave to anesthesiologist's discretion DOS if repeat CXR needed -Infectious Disease screening: Per PAT nursing assessment on 12/26/24. [facility] in own [facility]. No known infectious disease contacts in past 10 days or current infectious disease symptoms. No recent travel outside the country. Per [place] workload note from PCP 12/16/24= "... she is now cleared for her surgery. ..." PCP visit 12/09/24= "... ED follow up.. Per ED note "GOLD and chest pain... headache, myalgias arthralgias, abdominal pain, concerns for intra-abdominal bleeding, as well as other complaints... chest miguel is better... more abdominal bloating... LUE paresthesia. This is chronic per the patient. No GI bleeding that she has noticed..."... Symptoms have resolved, still some fatigue... procedure was cancelled for 12/10/24... Will have patient obtain labs and as long as they are stable, can then be cleared for procedure. No identifiable etiology found on exam, scans or lab work in ED- did see significant improvement with antiemetics and IVFs. No further concerns at this time from myself or patient..." Cardiology office visit 11/29/24= "...mildly dilated ascending aorta, moderate mitral regurgitation, and venous reflux/edema who presents today for preoperative cardiovascular evaluation prior to right partial glossectomy and possible left myringotomy and tube insertion on 12/10/[address] Scott. She is also scheduled for cholecystectomy and hernia repair on 01/01/[address] Alcaraz. She does not appear hypervolemic on exam. She reports chest pain, which is atypical and not consistent with cardiac etiology. She has chronic exertional dyspnea, which appears stable. She underwent a nuclear stress test in January 2024 that was negative for ischemia. Most recent echo showed normal LV systolic function and nonsevere MR. She is therefore at an acceptable risk to proceed with upcoming surgeries without any additional cardiovascular testing or intervention..." History Surgery Operation Date: 01/01/25 07:30 Proposed Procedures p Robotic assisted Laparoscopic Cholecystectomy, Diagnostic Laparoscopy, Open Versus - Bebeto Alcaraz DO, FACS s Robotic Assisted Laparoscopic Umbilical Hernia Repair - Bebeto Alcaraz DO, CHANDU Height/Weight Height: 5 ft 4 in Weight: 96.162 kg Allergies Allergy/AdvReac Type Severity Reaction Status Date / Time red dye Allergy Mild Unknown Verified 12/26/24 13:27 lithium Allergy Unknown lethargic Verified 12/26/24 13:27 varenicline [From Chantix] Allergy Unknown lethargic Verified 12/26/24 13:27 fentanyl AdvReac Unknown uknown Verified 12/26/24 13:27 diuretics Allergy Mild pt states Uncoded 12/26/24 13:27 she cannot take 2/2 previous bladder surgery MUSCLE RELAXANTS AdvReac Intermediate URINARY Uncoded 12/26/24 13:27 INCONTINENCE Medications Home Medications Medication Instructions Recorded Confirmed Last Taken incontinence pad, liner, disp #[id number] ea 05/27/24 12/09/24 Unknown (Poise Pads) furosemide 20 mg tablet 20 mg PO DAILY PRN swelling #30 05/29/24 12/26/24 Unknown tabs ferrous gluconate 324 mg (38 mg 324 mg PO DAILY #30 tabs 08/12/24 12/26/24 08/17/24 iron) tablet acetaminophen 500 mg tablet 1,000 mg PO Q6H PRN Pain 08/17/24 12/26/24 Unknown (Tylenol Extra Strength) cetirizine 10 mg capsule (All Day 10 mg PO DAILY PRN allergy 08/19/24 12/26/24 Unknown Allergy (cetirizine)) symptoms #14 caps sucralfate 100 mg/mL oral 5 ml PO QID 7 days #140 mL 09/21/24 12/26/24 Unknown suspension (Carafate) peg 3350-electrolytes 236 240 ml PO Q10M #4,000 mL 09/30/24 12/09/24 Unknown gram-22.74 gram-6.74 gram-5.86 gram solution (Golytely) lisinopril 2.5 mg tablet 2.5 mg PO HS 10/03/24 12/26/24 Unknown ondansetron 4 mg disintegrating 4 mg PO Q8H PRN nausea and 11/08/24 12/26/24 Unknown tablet vomiting #30 tabs pantoprazole 40 mg tablet,delayed 40 mg PO BID #60 tabs 11/20/24 12/26/24 Unknown release ergocalciferol (vitamin D2) 1,250 1,250 mcg PO Q7D #12 caps 11/28/24 12/26/24 Unknown mcg (50,000 unit) capsule ofloxacin 0.3 % eye drops 5 drp otic (ear) BID 12 days #5 mL 12/20/24 12/26/24 Unknown amoxicillin 875 mg tablet 875 mg PO BID possible tooth 12/26/24 12/26/24 Unknown infection famotidine 20 mg tablet (Acid 20 mg PO BID PRN GERD 12/26/24 12/26/24 Unknown Practice Business Asst (famotidine)) solifenacin 10 mg tablet 10 mg PO QAM 12/26/24 12/26/24 Unknown Past Medical History Medical History (Updated 12/26/24 @ 15:20 by Leia Burks PA-C) Cervicalgia ongoing, ROM is not limited Chronic low back pain Chronic venous insufficiency COPD (chronic obstructive pulmonary disease) per chart review; pt denies; no inhalers Depression per chart review; pt denies Diabetes per chart review; pt denies Edema b/l LE edema chronic (Lasix not effective per patient) GERD (gastroesophageal reflux disease) occasional regurgitation history of occ mild bloody emesis in the past- resolved with medications upcoming EGD/colonoscopy 01/2025 Hearing loss of left ear History of alcohol abuse per chart review, pt denies current or hx of ETOH abuse History of anemia History of cardioversion per pt>01/2024, over 5 day period @ [facility], following cardiac arrest; 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 Her cardiac workup was unremarkable with the exception of mild mitral regurgitation and left atrial enlargement. Her troponin levels were negative, and EKG showed no acute changes. She did have a nuclear stress test while there which she was told was normal, although I do not have that report. She has a favorable lipid panel with total tien sterol of 168 mg/dL, LDL 94 mg/dL, HDL 67 mg/dL. Her BNP was elevated at 161 although they do not mentioned any chest x-ray results were the presence of pulmonary edema." records from [facility] scanned into [place] chart. History of stroke "Mild 04/2024, no residual effects" per pt; no mention in chart of hx of CVA Homelessness pt currently staying in a penitentiary but states 'it's day to day'; PCP is aware and working on services Hx of cardiac arrest per pt> 02/03/24, [place], had to be "shocked twice"; f/u cardiology [facility] per [place] record-Nikolay Helen "patient was hospitalized in [place] in January 2024 with a suspected COPD exacerbation, atypical chest pain, possible cellulitis versus venous stasis dermatitis. Her cardiac workup was unremarkable with the exception of mild mitral regurgitation and left atrial enlargement. Her troponin levels were negative, and EKG showed no acute changes. She did have a nuclear stress test while there which she was told was normal, although I do not have that report. She has a favorable lipid panel with total cholesterol of 168 mg/dL, LDL 94 mg/dL, HDL 67 mg/dL. Her BNP was elevated at 161 although they do not mentioned any chest x-ray results were the presence of pulmonary edema." records from [facility] scanned into [place] chart. Hx of gastric ulcer [facility] admission 08/2024; f/u EGD scheduled 01/2025 Left arm numbness "due to pinched nerve in neck" Lesion of tongue procedure 12/10/24 to address>procedure cancelled, PCP didn't clear her Mild ascending aorta dilatation Moderate mitral regurgitation [place] [facility] [place], Dr. Guerin [place]dx with leaky heart valves" Mood disorder per chart review; pt denies Nicotine dependence per chart review; pt denies current or hx of nicotine use Poor historian Unspecified psychosis per chart review; pt denies Urinary incontinence Vitamin D deficiency Past Family History Family History Aunt Breast cancer Sister Breast cancer Denies family history of Diabetes Myocardial infarction Lung cancer Colorectal cancer Stroke Past Surgical History Surgical History H/O hand surgery History of bladder surgery History of esophagogastroduodenoscopy (EGD) History of laparoscopy (~1969) ovarian tumor resection Hx of colonoscopy Hx of tonsillectomy Hx of wisdom tooth extraction Social History Smoking Status: Never smoker Do You Dip or Chew Tobacco: No Hx Alcohol Use: No Hx Substance Use: No substance use type: does not use Lab Results Anesthesia Preop Results Results Anesthesia Widget: WBC 6.16 K/ul (4.8-10.8) 12/05/24 Hgb 11.0 g/dl (12.0-16.0) L 12/05/24 Hct 34.8 % (37.0-47.0) L 12/05/24 Plt 250 K/uL (130-400) 12/05/24 Na 139 mmol/L (136-145) 12/05/24 K 3.9 mmol/L (3.5-5.1) 12/05/24 Cl 105 mmol/L (98-107) 12/05/24 CO2 27 mmol/L (21-32) 12/05/24 BUN 10 mg/dl (6-23) 12/05/24 Creat 0.68 mg/dl (0.6-1.2) 12/05/24 Glucose Level 104 mg/dl (70-99(Fasting)) H 12/05/24 PT 11.3 Seconds (9.0-12.0) 12/05/24 INR 1.1 (0.9-1.1) 12/05/24 HA1c 5.9 % (4.5-5.6) H 11/27/24 Urine Color Yellow 12/05/24 Urine Appearance Clear (Clear) 12/05/24 Urine pH 8.5 (4.5-7.5) H 12/05/24 Urine Specific [place] 1.008 (1.000-1.030) 12/05/24 Urine Protein Negative (Negative) 12/05/24 Urine Glucose (UA) Negative (Negative) 12/05/24 Urine Ketones Negative (Negative) 12/05/24 Urine Blood Negative (Negative) 12/05/24 Urine Nitrite Negative (Negative) 12/05/24 Urine Bilirubin Negative (Negative) 12/05/24 Urine Urobilinogen Negative (Negative) 12/05/24 Urine Leukocyte Esterase Negative (Negative) 12/05/24 Testing Electrocardiogram Date: 12/05/24 Findings: + NSR @ (61bpm) Possible left atrial enlargement Low voltage QRS Nonspecific ST abnormality When compared to EKG from August 17, 2024- borderline criteria for lateral infarct are now present, nonspecific T wave abnormality worse in inferior leads, nonspecific T wave abnormality now evident in lateral leads per cardio Chest X-Ray Date: 12/05/24 Mild congestive changes of the cardiovascular system LUNGS/PLEURA: Mild pulmonary vascular congestion. No focal consolidation identified. Lingular subsegmental atelectasis no significant pleural fluid. No discernible pneumothorax. Echocardiogram Date: 03/08/24 EF 60-65% No regional wall motion abnormalities Severe LA enlargement Mildly dilated RA Moderate mitral regurgitation Mild tricuspid regurgitation Mildly dilated ascending aorta Cervical Spine Date: 05/02/24 There is partially visualized thoracic spine scoliosis. There is moderate degenerative disc disease at the mid and lower cervical spine. No fracture or subluxation. IMPRESSION: Degenerative disc disease. Other Testing Head CT 12/05/[address] evidence of an acute intracranial abnormality. If clinically appropriate, brain MRI could be obtained if indicated. Abdomen pelvis CT 09/20/24 1. No acute abnormality within the abdomen or pelvis. 2. Cholelithiasis without acute cholecystitis. Chest CTA 08/17/24 No evidence of acute pulmonary embolism
--- NOTE | 2024-12-31 12:17 | History & Physical Report ---
Date of Service December 31, 2024 Assessment & Plan (1) Cholelithiasis: Plan: Cholelithiasis. Her symptoms do not sound like they are biliary in nature. She attributes many of her vague abdominal symptoms to multiple different issues that she has been diagnosed with her perceives that she has. At this point she would like to have her gallbladder removed. She is also living at out of the cold and we will need to coordinate for postoperative care as she would likely not be able to go back while still recuperating from surgery. She also has a small umbilical hernia that she would like to have fixed. She has requested that I perform a diagnostic laparoscopy to evaluate for any other abnormalities. She understands that this will likely be nondiagnostic. She also understands that her symptoms may not resolve with surgery. She wishes to proceed. Plan for robotic assisted laparoscopic cholecystectomy, diagnostic laparoscopy, open umbilical hernia repair risks discussed briefly to include but not limited to bleeding, infection, retained stone, bile leak, open surgery, damage to surrounding structures including bile duct, need for future or more extensive surgery, failure to treat symptoms, and risks of anesthesia. Preop risk assessment from PCP and cardiology completed Coordinate with case management associate plan for for appropriate housing for postoperative convalescence. We would likely keep her overnight after surgery and then discharge her the following day. (2) Reducible umbilical hernia: (3) Gastric ulcer: (4) Alcohol abuse: (5) Diabetes: (6) Mood disorder: (7) Nicotine dependence: History of Present Illness Primary Care Provider: Gadiel Granda, DO Here for surgery. Initially referred for evaluation of cholelithiasis. This was an incidental finding seen on a CT scan at a hospital in [place] in January for bilateral leg pain. She reports intermittent cramping pain and fullness in her left upper quadrant several times per week. She initially did not notice any correspondence with meals, however she did note that her last episode occurred 3 hours after eating cake and fruit. She does have loose and watery stools, but does not associate this with the pain. She initially denied any association with fatty or greasy meals. Prior bladder sling and removal of sling. Also history of partial nephrectomy for benign tumor. She is homeless and currently resides at out of the cold. She is not on any blood thinners. She does have a leaky valve and appears to have some component of CHF requiring diuretics in the past. Since her last visit she has continued to have the left lower quadrant abdominal pain. She also feels like something twisted inside of her and she has to untwisted by pushing on her left side. She also has a small umbilical hernia which does not cause pain with activity but which she thinks is bothering her. She is still living at out of the cold. She did have an upper endoscopy that showed some gastric ulcerations that were bleeding believed to be secondary to NSAID use. No changes since last visit Allergies Allergy/AdvReac Type Severity Reaction Status Date / Time red dye Allergy Mild Unknown Verified 12/26/24 13:27 lithium Allergy Unknown lethargic Verified 12/26/24 13:27 varenicline [From Chantix] Allergy Unknown lethargic Verified 12/26/24 13:27 fentanyl AdvReac Unknown uknown Verified 12/26/24 13:27 diuretics Allergy Mild pt states Uncoded 12/26/24 13:27 she cannot take 2/2 previous bladder surgery MUSCLE RELAXANTS AdvReac Intermediate URINARY Uncoded 12/26/24 13:27 INCONTINENCE Home Medications Medication Instructions Recorded Confirmed Type incontinence pad, liner, disp #[id number] ea 05/27/24 12/09/24 Rx (Poise Pads) furosemide 20 mg tablet 20 mg PO DAILY PRN swelling #30 05/29/24 12/26/24 Rx tabs ferrous gluconate 324 mg (38 mg 324 mg PO DAILY #30 tabs 08/12/24 12/26/24 Rx iron) tablet acetaminophen 500 mg tablet 1,000 mg PO Q6H PRN Pain 08/17/24 12/26/24 History (Tylenol Extra Strength) cetirizine 10 mg capsule (All Day 10 mg PO DAILY PRN allergy 08/19/24 12/26/24 Rx Allergy (cetirizine)) symptoms #14 caps sucralfate 100 mg/mL oral 5 ml PO QID 7 days #140 mL 09/21/24 12/26/24 Rx suspension (Carafate) peg 3350-electrolytes 236 240 ml PO Q10M #4,000 mL 09/30/24 12/09/24 Rx gram-22.74 gram-6.74 gram-5.86 gram solution (Golytely) lisinopril 2.5 mg tablet 2.5 mg PO HS 10/03/24 12/26/24 History ondansetron 4 mg disintegrating 4 mg PO Q8H PRN nausea and 11/08/24 12/26/24 Rx tablet vomiting #30 tabs pantoprazole 40 mg tablet,delayed 40 mg PO BID #60 tabs 11/20/24 12/26/24 Rx release ofloxacin 0.3 % eye drops 5 drp otic (ear) BID 12 days #5 mL 12/20/24 12/26/24 Rx amoxicillin 875 mg tablet 875 mg PO BID possible tooth 12/26/24 12/26/24 History infection famotidine 20 mg tablet (Acid 20 mg PO BID PRN GERD 12/26/24 12/26/24 History [employer] Work[employer] (famotidine)) solifenacin 10 mg tablet 10 mg PO QAM 12/26/24 12/26/24 History cholecalciferol (vitamin D3) 1,250 1,250 mcg PO .weekly #12 caps 12/27/24 Rx mcg (50,000 unit) capsule Past Med/Surg History Problem List (Updated 12/26/24 @ 15:20 by Leia Burks PA-C) Reducible umbilical hernia Cerumen debris on tympanic membrane of left ear Left flank pain Gastric ulcer Prerenal azotemia (Acute) Chest pain (Acute) Anemia Chronic venous insufficiency Neurogenic claudication Cervicalgia Chronic low back pain Ascending aorta dilatation Left atrial enlargement Moderate mitral regurgitation Edema Cholelithiasis Otalgia of left ear Sensorineural hearing loss, unilateral, left ear, with unrestricted hearing on the contralateral side Unspecified psychosis Nicotine dependence Mood disorder (Acute) Depression Alcohol abuse Diabetes (Chronic) Anxiety and depression (Chronic) Medical History (Updated 12/26/24 @ 15:20 by Leia Burks PA-C) History of anemia Left arm numbness "due to pinched nerve in neck" GERD (gastroesophageal reflux disease) occasional regurgitation history of occ mild bloody emesis in the past- resolved with medications upcoming EGD/colonoscopy 01/2025 Homelessness pt currently staying in a residential but states 'it's day to day'; PCP is aware and working on services Poor historian Mild ascending aorta dilatation COPD (chronic obstructive pulmonary disease) per chart review; pt denies; no inhalers Nicotine dependence per chart review; pt denies current or hx of nicotine use History of alcohol abuse per chart review, pt denies current or hx of ETOH abuse Edema b/l LE edema chronic (Lasix not effective per patient) Vitamin D deficiency Chronic venous insufficiency Unspecified psychosis per chart review; pt denies Mood disorder per chart review; pt denies Diabetes per chart review; pt denies Depression per chart review; pt denies Lesion of tongue procedure 12/10/24 to address>procedure cancelled, PCP didn't clear her Cervicalgia ongoing, ROM is not limited Chronic low back pain History of cardioversion per pt>01/2024, over 5 day period @ [facility], following cardiac arrest; 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 Her cardiac workup was unremarkable with the exception of mild mitral regurgitation and left atrial enlargement. Her troponin levels were negative, and EKG showed no acute changes. She did have a nuclear stress test while there which she was told was normal, although I do not have that report. She has a favorable lipid panel with total cholesterol of 168 mg/dL, LDL 94 mg/dL, HDL 67 mg/dL. Her BNP was elevated at 161 although they do not mentioned any chest x-ray results were the presence of pulmonary edema." records from [facility] scanned into OR chart. Hx of cardiac arrest per pt> 02/03/24, [place], [place], had to be "shocked twice"; f/u cardiology [facility] per [place] record[place] "patient was hospitalized in [place] in January 2024 with a suspected COPD exacerbation, atypical chest pain, possible cellulitis versus venous stasis dermatitis. Her cardiac workup was unremarkable with the exception of mild mitral regurgitation and left atrial enlargement. Her troponin levels were negative, and EKG showed no acute changes. She did have a nuclear stress test while there which she was told was normal, although I do not have that report. She has a favorable lipid panel with total cholesterol of 168 mg/dL, LDL 94 mg/dL, HDL 67 mg/dL. Her BNP was elevated at 161 although they do not mentioned any chest x-ray results were the presence of pulmonary edema." records from [facility] scanned into [place] chart. History of stroke "Mild 04/2024, no residual effects" per pt; no mention in chart of hx of CVA Hearing loss of left ear Moderate mitral regurgitation pt sees [facility] 01/2024, Dr. Guerin [place], [place]dx with leaky heart valves" Hx of gastric ulcer [facility] admission 08/2024; f/u EGD scheduled 01/2025 Urinary incontinence Surgical History History of laparoscopy (~1970) ovarian tumor resection Hx of colonoscopy History of esophagogastroduodenoscopy (EGD) H/O hand surgery History of bladder surgery Hx of tonsillectomy Hx of wisdom tooth extraction Family History Aunt Breast cancer Sister Breast cancer Denies family history of Diabetes Myocardial infarction Lung cancer Colorectal cancer Stroke Social History Smoking Status: Never smoker Tobacco Type: Cigarettes Age Started Using Tobacco: 16; Age Quit Using Tobacco: 17; packs per day: 0.5; Second Hand Exposure: No; Do You Dip or Chew Tobacco: No; Tobacco Cessation Education Requested by Patient: No Hx Alcohol Use: No Hx Substance Use: No Preferred Language: Urdu Communication Ability: Effective Visual Impairment: No Limitations Hearing Ability: Normal Document Restorer Required: No Beliefs That Will Affect Care: None marital status: Current Living Situation: Homeless Current Living Situation Comment: lives in own bedroom at residential current occupational status: unemployed How many Children do You have: 2 Other Information That Helps Us Care for You: No Feels Safe at Home: Declines to Answer Safety Concerns: Feels Safe At This Time Childhood Exposure to Second-Hand Smoke: No Diet: regular caffeine: No during the past year weight has: increased > 10 lbs Dental Care, Regularly: No Physical Activity Frequency: Daily Seatbelt Use: always Sunscreen Use: No Assistive Devices: Other Assistive Devices Comment: wheeled cart for balance/walking Review of Systems Review of Systems: All systems reviewed & are unremarkable except as noted in HPI & below Physical Exam Constitutional: WD/WN, vitals as above Respiratory: normal respiratory effort, lungs clear to auscultation Cardiovascular: RRR, no murmur, no edema Gastrointestinal (Abdomen): normal bowel sounds, soft, nontender, no hepatosplenomegaly Inspection/Auscultation: + abdominal surgical scar Percussion/Palpation: + hernia (Small reducible umbilical hernia) Results & Data Results & Data Diagnostic Findings CT scans and ultrasounds personally reviewed and interpreted agree with the assessment of cholelithiasis without cholecystitis. Small umbilical hernia with defect measuring around 1.2 cm. No other abnormalities in the abdomen to explain her symptoms. Exam(s): CT ABDOMEN + PELVIS With Contrast IV Amt: optiray 320 93ml EXAM: CT Abdomen and Pelvis With Intravenous Contrast CLINICAL HISTORY: Reason for exam: abd pain. TECHNIQUE: Axial computed tomography images of the abdomen and pelvis with intravenous contrast. CTDI is 28.08 mGy and DLP is 1327.92 mGy-cm. Automated exposure control was utilized for the study. A dose lowering technique was utilized adhering to the principles of ALARA. CONTRAST: Patient received optiray 320 93ml of IV contrast COMPARISON: 08/17/2024 FINDINGS: ABDOMEN: Liver: Unremarkable. Gallbladder and bile ducts: Cholelithiasis without acute cholecystitis. No biliary dilatation. Pancreas: Unremarkable. Spleen: Unremarkable. Adrenals: Unremarkable. Kidneys and ureters: Unremarkable. No obstructing stones. No hydronephrosis. Stomach and bowel: Colonic diverticulosis without acute diverticulitis. PELVIS: Appendix: Normal appendix. Bladder: Unremarkable. Reproductive: Unremarkable as visualized. ABDOMEN and PELVIS: Intraperitoneal space: Unremarkable. No free air. No significant fluid collection. Bones/joints: No acute fracture. Soft tissues: Unremarkable. Vasculature: Unremarkable. Lymph nodes: Unremarkable. IMPRESSION: 1. No acute abnormality within the abdomen or pelvis. 2. Cholelithiasis without acute cholecystitis. Radiology Interpretation: Clinical history: Abdominal pain Technique: Sonography was performed of the right upper quadrant of the abdomen Findings: There is no sign of cirrhosis or significant fatty infiltration. No definite liver mass is seen Gallstones are present. The gallbladder has a normal wall thickness and no adjacent fluid is seen. No definite sonographic Wheeler sign was detected. There is no intrahepatic or extrahepatic bile duct dilatation. The common bile duct measures 4 mm The right kidney measures 10.6 cm in length. There is no hydronephrosis. No definite renal calculus or mass is seen. There is a 1.3 cm right renal cyst The visualized pancreas, aorta, and IVC appear unremarkable. No ascites is seen Impression: 1. Cholelithiasis without evidence of acute cholecystitis 2. Small right renal cyst PG Care Time/CCT Total # of Minutes Spent Total Time Spent with Patient: Total time spent is greater than 50% in coordination of care (as documented) at patient's floor/unit and/or counseling patient: Coding Level of Care Code None Diagnoses Cholelithiasis K80.20 Reducible umbilical hernia K42.9 Gastric ulcer K25.9 Alcohol abuse F10.10 Diabetes E11.9 Mood disorder F39 Nicotine dependence F17.200
[~2025-01-01 09:11] MED LIST: DEXAMETHASONE SOD INJ 4 MG/ML VIAL ONE; LIDOCAINE 2% 2 ML VIAL/AMP(20MG/ML) INFIL ONE; ONDANSETRON INJ 2 MG/ML 2 ML VIAL ONE; PROPOFOL IV EMULSION 10 MG/ML 20 ML VIAL IV ONE; ROCURONIUM BROMIDE 10 MG/ML 5 ML VIAL IV ONE; SUGAMMADEX SODIUM 200 MG/2 ML VIAL IV ONE
[2025-01-01] MEDS: LACTATED RINGER'S 1,000 ML IV SCH ×2 (10:20→16:14)
[2025-01-01] MEDS ORDERED: MIDAZOLAM HCL 1 MG/ML 2ML VIAL ONE (10:25)
[2025-01-01] MEDS ORDERED: ATROPINE SULFATE 0.1 MG/ML 10ML SYR IV PRN (10:32)
[2025-01-01] MEDS ORDERED: FLUMAZENIL 0.1 MG/1 ML 10 ML VIAL IV PRN (10:32)
[2025-01-01] MEDS ORDERED: ONDANSETRON INJ 2 MG/ML 2 ML VIAL IV PRN (10:32)
[2025-01-01] MEDS ORDERED: NALOXONE HCL 0.4 MG/1 ML VIAL/CARP IV PRN (10:32)
--- NOTE | 2025-01-01 11:47 | History & Physical Bridge Note ---
Date of Service January 01, 2025 History & Physical Bridge Note I have examined the patient, reviewed the History & Physical and in the interval since the performance of the History & Physical I have noted the following changes of clinical significance: no changes noted
[2025-01-01] MEDS: INDOCYANINE GREEN 25 MG VIAL INJ ONE (11:53)
[2025-01-01] MEDS: cefOXitin 2,000 MG in DEXTROSE 5 % MINI-B 50 ML IV SCH (12:14)
[2025-01-01] MEDS ORDERED: ROCURONIUM BROMIDE 10 MG/ML 5 ML VIAL IV ONE (13:02)
--- NOTE | 2025-01-01 13:39 | Operative Report ---
PG Post Operative Report Pre & Post Diagnosis Operation Date: 01/01/25 11:00 Pre-Op Diagnosis: Cholelithiasis, Abdominal Pain, Umbilical Hernia Post-Op Diagnosis: Cholelithiasis, Abdominal Pain, Umbilical Hernia I identified the patient and participated in the time-out.: Yes Procedure Operation Date: 01/01/25 11:00 Actual Procedures p Robotic assisted Laparoscopic Cholecystectomy(Not Applicable) - Bebeto Alcaraz DO, FACS s Open Umbilical Hernia Repair(Not Applicable), diagnostic laparoscopy- Bebeto Alcaraz DO, FACS Surgeon Bebeto Alcaraz DO, FACS Furnace Hand Yuliya Masters Estimated Blood Loss 5 Findings Consistent with Post-Op Diagnosis Mild chronic cholecystitis. Critical view of safety obtained, cystic duct and artery doubly clipped and divided. Diagnostic laparoscopy performed, no evidence of abnormality in the abdomen, specifically no abnormality in the left upper or lower quadrant. Umbilical hernia repaired primarily with interrupted 0 Nurolon's. Exparel injected. Specimens Gallbladder Anesthesia Type General Complications none Disposition Accompanied Patient To Recovery: No Disposition: Recovery Room Indications 64-year-old female with intermittent left-sided abdominal pain, with findings of cholelithiasis and umbilical hernia on imaging. After discussion of her options, patient elected for robotic cholecystectomy, open versus robotic umbi lical hernia repair, and diagnostic laparoscopy. The risks of the procedure were discussed, all questions were answered, and the patient agreed to proceed with surgery as planned. Description of Procedure The patient was properly identified, consented, and taken to the operating room where she was placed in the supine position. 2.5 mg of indocyanine green were administered IV approximately 45 min prior to the surgery. General endotracheal anesthesia was induced. SCDs and a safety belt were placed. Preoperative antibiotics were administered. The patient's abdomen was prepped and draped in the standard sterile fashion. A surgical timeout was performed and all parties were in agreement that this was the correct patient and procedure to be performed and we continued as planned. An a curvilinear incision was made just below the umbilicus. This was deepened down to the subcutaneous tissue. The umbilicus was circumferentially dissected with a Minna. The umbilical stalk was divided at the base. A 1 cm fascial defect was identified. The fascia both anterior and posterior was cleared of investing tissue for 1 to 2 cm. Stay sutures of 0 Nurolon were placed on either side of the hernia defect. The 8 mm robotic cannula was placed with a Sarkar accessory and secured in place with a stay sutures. The abdomen was insufflated with carbon dioxide which the patient tolerated incident. The introducer was removed and the abdomen inspected. No damage from initial trocar placement was identified. There were no significant abnormalities to the 4 quadrants of the abdomen. 8 mm robotic ports were then placed on the left and right. An additional 5 mm life science research assistant port was placed in the lateral right subcostal position. The patient was placed in reverse Trendelenburg position and rotated towards the left. The robot was then docked and the camera and robotic instruments were inserted. The abdomen was briefly explored. The patient stated that most of her symptoms felt like they were on the left and felt like something was twisting or turning. The stomach, colon, and small bowel were observed. There was no significant ab normality noted. A portion of the small bowel was run from the LOT to the terminal ileum and no abnormality was identified. We then proceeded to perform the cholecystectomy. The gallbladder was moderately and chronically inflamed. The dome of the gallbladder was grasped by the life science research assistant and retracted towards the left upper quadrant and the infundibulum was retracted toward the right lower quadrant revealing Calot's triangle. Peritoneal attachments were taken down with electrocautery and blunt dissection. The cystic duct and artery were circumferentially dissected. A window of safety was obtained showing the cystic duct entering the gallbladder with no aberrant structures noted. We were able to identify the cystic duct utilizing the ICG. The cystic duct was doubly clipped and divided. The cystic artery was cauterized with the bipolar device, clipped proximally, and divided. The gallbladder was then lifted off the gallbladder fossa with electrocautery. The right upper quadrant was irrigated and hemostasis was found to be good. The gallbladder was placed in an Endo Catch bag and removed through the umbilical port site. The instruments were removed and the robot was undocked. The trochars were removed and the abdomen was allowed to collapse. Attention then turned to the umbilical hernia. I scrubbed back in and the case. The umbilical defect was closed with interrupted 0 Nurolon sutures. The wound was irrigated hemostasis confirmed. The fascia and surrounding soft tissues were injected with Exparel mixed with 0.5% Marcaine. The umbilicus was tacked back down to the abdominal wall using a 3-0 Vicryl [id number] suture. The umbilical port site skin was closed with interrupted 3-0 Vicryl deep dermal sutures followed by 4-0 Monocryl running subcuticular suture. The skin of all ports was closed with 4-0 Monocryl subcuticular sutures. Dermabond was placed over the wounds. The patient was extubated in the operating room and taken to the PACU where she recovered without apparent incident. All sponge, instrument and needle counts were correct at the conclusion of the procedure. The patient tolerated the procedure well. The physician's life science research assistant was present and scrubbed for the entirety of the case and was essential in positioning the patient, prepping and draping, retraction and exposure, driving the laparoscope, exchange of the robotic instruments removal of the gallbladder, closure of the incisions, and placement of the dressings. I attest to the content of the Intraoperative Record and any orders documented therein. Any exceptions are noted below.
[2025-01-01] MEDS: BUPIVACAINE 0.5 % 5 MG/1 ML MPF 30ML VIAL ONE (13:42)
[2025-01-01] MEDS: BUPIVACAINE LIPOSOME 1.3% 266 MG/20 ML VIAL ONE (13:43)
[2025-01-01] MEDS ORDERED: MoRPHine SULFATE 4 MG/ML 1 ML CARP\\VIAL IV PRN (13:48)
[2025-01-01] MEDS: PROMETHAZINE HCL 6.25 MG in SODIUM CHLORIDE 0.9% 50 ML IV PRN (14:00)
[2025-01-01] MEDS ORDERED: FAMOTIDINE 20 MG TAB PO PRN (15:01)
[2025-01-01] MEDS ORDERED: CETIRIZINE HCL 10 MG TABLET PO PRN (15:04)
[2025-01-01] MEDS: PROMETHAZINE HCL INJ 25 MG/ML 1 ML VIAL ONE (15:48)
[2025-01-01] MEDS: SODIUM CHLORIDE 0.9% 50 ML BAG ONE (15:48)
[2025-01-01] MEDS: SUCRALFATE 1 GM/10 ML UDC PO SCH (16:43)
[2025-01-01] MEDS: ACETAMINOPHEN 325 MG TAB PO SCH (16:43)
[2025-01-01] MEDS: ONDANSETRON INJ 2 MG/ML 2 ML VIAL IV PRN (19:41)
[2025-01-01] MEDS: OFLOXACIN 0.3% 75 DROPS/5 ML BTL OT SCH (20:43)
[2025-01-01] MEDS: MoRPHine SULFATE 2 MG/ML CARP IV PRN (23:10)
[2025-01-02 07:29] VITALS: BP 130/73; PULSE 70; RESP 16; TEMP 98.1; O2SAT 96
[2025-01-02] MEDS: OXYBUTYNIN CHLORIDE XL 5 MG TABCR PO SCH (09:19)
--- NOTE | 2025-01-02 11:31 | Surgery Progress Note ---
Date of Service January 02, 2025 Assessment & Plan (1) H/O umbilical hernia repair: Plan: She is doing well postop day 1 Continue her diet Discharge her today (2) Hx laparoscopic cholecystectomy: Admission and Anticipated Discharge Date Admission Date: January 01, 2025 Subjective Patient seen and examined. Pain controlled. Tolerating diet. Physical Exam Constitutional: WD/WN, vitals as above Gastrointestinal (Abdomen): Incisions healing well without erythema or drainage Results & Data Vital Signs (Past 12 Hours) Vital Signs Temp Pulse Resp BP Pulse Ox O2 Del Method 01/02/25 07:29 36.7 C 70 16 130/73 96 Room Air 01/02/25 03:00 36.6 C 75 18 120/73 93 Room Air PG Care Time/CCT Total # of Minutes Spent Total Time Spent with Patient: Total time spent is greater than 50% in coordination of care (as documented) at patient's floor/unit and/or counseling patient: Coding Level of Care Code 64730 Post Operative Follow-Up Diagnoses H/O umbilical hernia repair Z98.890; Z87.19 Hx laparoscopic cholecystectomy Z90.49
--- NOTE | 2025-01-06 06:33 | Anesthesiology Progress Note ---
Date of Service January 06, 2025 Anesthesia Post Procedure Pain Intensity Abdomen: Pain Intensity: 10 Transfer of Care Handoff Completed per policy Notes Mental Status: alert / awake / arousable Patient Amnestic to Procedure: Yes Nausea / Vomiting: adequately controlled Pain: adequately controlled Airway Patency, RR, SpO2: stable & adequate BP & HR: stable & adequate Hydration State: stable & adequate Anesthetic Complications: no major complications apparent
== END 2025-01-02 13:29 | disposition home or self-care (01) ==
LOC: 3E 09:11 → ASU 09:11

== ENCOUNTER 2025-01-13 17:41 | Inpatient (IN) ==
[2025-01-13 18:46] LABS: Hematocrit (blood only) 29.0 % (37.0-47.0); Hemoglobin 8.9 g/dL (12.0-16.0); Immature Granulocytes # (auto) 0.05 K/uL (0.01-0.20); Immature Granulocytes % (auto) 0.6 %; Mean Corpuscular Hemoglobin 23.9 pg (25.0-34.0); Mean Corpuscular Volume 78.0 fL (80.0-100.0); Platelet Count 250 K/uL (130-400); RDW Standard Deviation 60.5 fL (36.4-46.3); Red Blood Count 3.72 M/uL (4.20-5.40); White Blood Count 8.57 K/ul (4.8-10.8)
[2025-01-13 19:03] LABS: Alanine Aminotransferase 9.0 U/L (7-52); Albumin Globulin Ratio 1.1 (0.9-2); Albumin Level 3.3 gm/dl (3.4-5.0); Alkaline Phosphatase 66.0 U/L (34-104); Anion Gap 7.0 (3-11); Bilirubin,Total 0.3 mg/dl (0.2-1.0); Blood Urea Nitrogen 41.0 mg/dl (6-23); Calcium 8.4 mg/dl (8.6-10.3); Carbon Dioxide 26.0 mmol/L (21-32); Chloride 105.0 mmol/L (98-107); Creatinine Clr Calc Pharmacy 119.0 ml/min; Globulin 3.1 gm/dl (2.5-4.0); Glucose 111.0 mg/dl (70-99(Fasting)); Lipase 17.0 U/L (11-82); Potassium 4.3 mmol/L (3.5-5.1); Sodium 138.0 mmol/L (136-145); Total Protein 6.4 gm/dl (6.0-8.3)
[2025-01-13 19:29] LABS: Anisocytosis Present; Polychromasia 1+; Stomatocytes 1+
[2025-01-13 19:35] LABS: Appearance Urine Clear (Clear); Glucose Urine UA Negative (Negative)
--- NOTE | 2025-01-13 20:12 | Emergency Department Note ---
ED Provider Note History of Present Illness Chief Complaint: Illness Stated Complaint: PAIN, SICK, SOB, SWELLING Time Seen by Provider: 01/13/25 20:01 54-year-old female who presents the emergency department with complaint of abdominal pain, distention, nausea, shortness of breath and mild drainage from her umbilicus that has since stopped. The patient reports that she had her gallbladder removed, and hernia repair 1.5 weeks ago. She has an appointment tomorrow morning with her surgeon for further follow-up, however because her belly was starting to get bigger, she decided to come to the emergency department. Patient reports that she did eat some fish and yogurt tonight, however could not complete it because of nausea. She denies any vomiting, fever or chills. She denies any urinary symptoms. The patient does report a history of GI ulcers, and has had recent dark stools that are not uncommon. The patient reports having an upper endoscopy performed this past August that showed gastric ulcers. She currently rates her discomfort a 7 out of 10. Home Medications Medication Instructions Recorded Confirmed Type incontinence pad, liner, disp #[id number] ea 05/27/24 12/09/24 Rx (Poise Pads) acetaminophen 500 mg tablet 1,000 mg PO Q6H PRN Pain 08/17/24 01/14/25 History (Tylenol Extra Strength) cetirizine 10 mg capsule (All Day 10 mg PO DAILY PRN allergy 08/19/24 01/14/25 Rx Allergy (cetirizine)) symptoms #14 caps sucralfate 100 mg/mL oral 5 ml PO QID 7 days #140 mL 09/21/24 01/14/25 Rx suspension (Carafate) peg 3350-electrolytes 236 240 ml PO Q10M #4,000 mL 09/30/24 01/14/25 Rx gram-22.74 gram-6.74 gram-5.86 gram solution (Golytely) lisinopril 2.5 mg tablet 2.5 mg PO HS 10/03/24 01/14/25 History pantoprazole 40 mg tablet,delayed 40 mg PO BID #60 tabs 11/20/24 01/14/25 Rx release ofloxacin 0.3 % eye drops 5 drp otic (ear) BID 12 days #5 mL 12/20/24 01/14/25 Rx famotidine 20 mg tablet (Acid 20 mg PO BID PRN GERD 12/26/24 01/14/25 History Esthetician/Skin Therapist (famotidine)) solifenacin 10 mg tablet 10 mg PO QAM 12/26/24 01/14/25 History cholecalciferol (vitamin D3) 1,250 1,250 mcg PO .weekly #12 caps 12/27/24 01/14/25 Rx mcg (50,000 unit) capsule ferrous gluconate 324 mg (38 mg 324 mg PO DAILY #90 tabs 01/06/25 01/14/25 Rx iron) tablet oxycodone 5 mg tablet 5 - 10 mg (1 - 2 x 5 mg) PO 01/06/25 01/14/25 Rx .[id number] PRN pain, for initial therapy, max 6 tabs per day #15 tabs oxycodone 5 mg tablet 5 mg PO .[id number] PRN pain, for 01/06/25 01/14/25 Rx ongoing therapy, max 6tabs/day #15 tabs ondansetron 4 mg disintegrating 4 mg PO Q6H PRN nausea and 01/13/25 Rx tablet vomiting #20 tabs Allergies Allergy/AdvReac Type Severity Reaction Status Date / Time red dye Allergy Mild Unknown Verified 01/01/25 09:42 furosemide [From Lasix] Allergy Unknown Unknown Verified 01/01/25 15:11 lithium Allergy Unknown lethargic Verified 01/01/25 09:42 varenicline [From Chantix] Allergy Unknown lethargic Verified 01/01/25 09:42 cyclobenzaprine AdvReac Mild Unknown Verified 01/01/25 15:22 fentanyl AdvReac Unknown uknown Verified 01/01/25 09:42 Past Med/Surg History Problem List (Updated 01/14/25 @ 02:01 by Kashif Claros) Acute upper GI bleed (Acute) History of gastric ulcer (Acute) Anemia (Acute) History of umbilical hernia repair (Acute) Status post laparoscopic cholecystectomy (Acute) Abdominal wall seroma (Acute) Acute duodenitis (Acute) Reducible umbilical hernia Cerumen debris on tympanic membrane of left ear Left flank pain Gastric ulcer Prerenal azotemia (Acute) Chest pain (Acute) Anemia Chronic venous insufficiency Neurogenic claudication Cervicalgia Chronic low back pain Ascending aorta dilatation Left atrial enlargement Moderate mitral regurgitation Edema Cholelithiasis Otalgia of left ear Sensorineural hearing loss, unilateral, left ear, with unrestricted hearing on the contralateral side Unspecified psychosis Nicotine dependence Mood disorder (Acute) Depression Alcohol abuse Diabetes (Chronic) Anxiety and depression (Chronic) Medical History (Updated 01/14/25 @ 02:01 by Kashif Claros) History of anemia Left arm numbness "due to pinched nerve in neck" GERD (gastroesophageal reflux disease) occasional regurgitation history of occ mild bloody emesis in the past- resolved with medications upcoming EGD/colonoscopy 01/2025 Homelessness pt currently staying in [place] [facility] but states 'it's day to day'; PCP is aware and working on services Poor historian Mild ascending aorta dilatation COPD (chronic obstructive pulmonary disease) per chart review; pt denies; no inhalers Nicotine dependence per chart review; pt denies current or hx of nicotine use History of alcohol abuse per chart review, pt denies current or hx of ETOH abuse Edema b/l LE edema chronic (Lasix not effective per patient) Vitamin D deficiency Chronic venous insufficiency Unspecified psychosis per chart review; pt denies Mood disorder per chart review; pt denies Diabetes per chart review; pt denies Depression per chart review; pt denies Lesion of tongue procedure 12/10/24 to address>procedure cancelled, PCP didn't clear her Cervicalgia ongoing, ROM is not limited Chronic low back pain History of cardioversion per pt>01/2024, over 5 day period @ [facility], following cardiac arrest; 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 Her cardiac workup was unremarkable with the exception of mild mitral regurgitation and left atrial enlargement. Her troponin levels were negative, and EKG showed no acute changes. She did have a nuclear stress test while there which she was told was normal, although I do not have that report. She has a favorable lipid panel with total cholesterol of 168 mg/dL, LDL 94 mg/dL, HDL 67 mg/dL. Her BNP was elevated at 161 although they do not mentioned any chest x-ray results were the presence of pulmonary edema." records from [facility] scanned into [place] chart. Hx of cardiac arrest per pt> 02/03/24, [place], [place], had to be "shocked twice"; f/u cardiology [facility] per [place] record-Nikolay Cervantes "patient was hospitalized in [place] in January 2024 with a suspected COPD exacerbation, atypical chest pain, possible cellulitis versus venous stasis dermatitis. Her cardiac workup was unremarkable with the exception of mild mitral regurgitation and left atrial enlargement. Her troponin levels were negative, and EKG showed no acute changes. She did have a nuclear stress test while there which she was told was normal, although I do not have that report. She has a favorable lipid panel with total cholesterol of 168 mg/dL, LDL 94 mg/dL, HDL 67 mg/dL. Her BNP was elevated at 161 although they do not mentioned any chest x-ray results were the presence of pulmonary edema." records from [facility] scanned into [place] chart. History of stroke "Mild 04/2024, no residual effects" per pt; no mention in chart of hx of CVA Hearing loss of left ear Moderate mitral regurgitation pt [place] [facility] [place], [place], [place]dx with leaky heart valves" Hx of gastric ulcer [facility] admission 08/2024; f/u EGD scheduled 01/2025 Urinary incontinence Surgical History (Updated 01/13/25 @ 21:43 by Kashif Claros) H/O umbilical hernia repair (01/01/25) p Robotic assisted Laparoscopic Cholecystectomy(Not Applicable) - Bebeto Alcaraz DO, FACS s Open Umbilical Hernia Repair(Not Applicable), diagnostic laparoscopy- Bebeto Alcaraz DO, FACS Hx laparoscopic cholecystectomy (01/01/25) p Robotic assisted Laparoscopic Cholecystectomy(Not Applicable) - Bebeto Alcaraz DO, FACS s Open Umbilical Hernia Repair(Not Applicable), diagnostic laparoscopy- Bebeto Alcaraz DO, FACS History of laparoscopy (~1970) ovarian tumor resection Hx of colonoscopy History of esophagogastroduodenoscopy (EGD) H/O hand surgery History of bladder surgery Hx of tonsillectomy Hx of wisdom tooth extraction Family History Aunt Breast cancer Sister Breast cancer Denies family history of Diabetes Myocardial infarction Lung cancer Colorectal cancer Stroke Social History Smoking Status: Never smoker Tobacco Type: Cigarettes Age Started Using Tobacco: 16; Age Quit Using Tobacco: 17; packs per day: 0.5; Second Hand Exposure: No; Do You Dip or Chew Tobacco: No; Hx Alcohol Use: No Hx Substance Use: No Preferred Language: [place] Communication Ability: Effective Visual Impairment: No Limitations Hearing Ability: Normal Crosscutter Rolled Glass Required: No Beliefs That Will Affect Care: None marital status: Current Living Situation: Homeless Current Living Situation Comment: lives [facility] current occupational status: unemployed How many Children do You have: 2 Feels Safe at Home: Declines to Answer Childhood Exposure to Second-Hand Smoke: No Diet: regular caffeine: No during the past year weight has: increased > 10 lbs Dental Care, Regularly: No Physical Activity Frequency: Daily Seatbelt Use: always Sunscreen Use: No Assistive Devices: Other Physical Exam Vital Signs Vital Signs - 24 hr 01/13/25 17:50 01/13/25 19:25 01/13/25 21:00 Temperature 36.4 C L Temperature Source Temporal Artery Scan Pulse Rate 84 Pulse Rate [Right Finger] 72 Pulse Rhythm [Right Finger] Regular Pulse Strength [Right Finger] Normal Respiratory Rate 20 16 Respiratory Effort / Characteristics Non-Labored Spontaneous Respiratory Depth Normal Respiratory Pattern Regular Blood Pressure 122/79 Blood Pressure [Left Arm] 105/57 L Blood Pressure Mean 93 Blood Pressure Mean [Left Arm] 73 Blood Pressure Position Sitting Blood Pressure Position [Left Arm] Lying Pulse Oximetry 97 98 96 Oxygen Delivery Method Room Air Room Air Room Air Sepsis Recent Fever Within 48 Hours No Sepsis New/Unexplained Change in Mental Status No Sepsis Action Taken by Nursing No Action Required 01/13/25 21:56 01/13/25 23:00 01/14/25 00:55 Temperature Temperature Source Pulse Rate 70 81 Pulse Rate [Right Finger] 79 Pulse Rhythm [Right Finger] Pulse Strength [Right Finger] Respiratory Rate 16 16 Respiratory Effort / Characteristics Respiratory Depth Respiratory Pattern Blood Pressure 105/57 L Blood Pressure [Left Arm] 118/65 Blood Pressure Mean Blood Pressure Mean [Left Arm] 82 Blood Pressure Position Blood Pressure Position [Left Arm] Pulse Oximetry 95 93 Oxygen Delivery Method Room Air Room Air Sepsis Recent Fever Within 48 Hours Sepsis New/Unexplained Change in Mental Status Sepsis Action Taken by Nursing CONSTITUTIONAL: Healthy and well nourished. Patient does not appear in any acute distress. HEENT: No scleral icterus or conjunctival injection/pallor. Mucous membranes are moist. NECK: No JVD or carotid bruits appreciated. RESPIRATORY: Clear to auscultation bilaterally with no wheezing, crackles, rhonchi or stridor. CARDIOVASCULAR: Regular rate and rhythm with no murmurs, rubs or gallops. GASTROINTESTINAL: Bowel sounds present in all quadrants. Surgical incisions are healing well without evidence for surrounding erythema. Patient does have some mild blood crusting in the lower umbilicus, but no surrounding erythema or tenderness to palpation. The patient has minimal additional generalized abdominal tenderness to palpation. Negative CVA tenderness. MUSCULOSKELETAL: No erythema or warmth to palpation of her major joints. INTEGUMENTARY: No rash or other significant dermatologic conditions noted. HEMATOLOGIC: No ecchymosis or petechiae. PSYCHIATRIC: Positive affect. NEUROLOGIC: No focal neurologic deficits noted. Course Course Patient history and physical exam were performed. Nursing notes were reviewed. I did review outside medical records, confirming that the patient did undergo EGD on 08/10/2024, showing nonbleeding gastric ulcers with erosive gastropathy, and normal duodenum on exam. She was supposed to have a repeat ECG performed 8 weeks after the study, however it appears that that was not performed. Further review of records shows that the patient underwent an uneventful laparoscopic cholecystectomy and umbilical herniorrhaphy on 01/01/[address] Alcaraz. IV access was established, and labs were ordered and drawn. The patient was hydrated with a liter of normal saline, and administered IV Zofran for nausea. The patient also requested some sucralfate, which was administered. Review of labs showed a hemoglobin of 8.9; prior lab results have been in a similar range. Patient does not have an elevated neutrophil count, thrombocytopenia or leukocytosis. CMP does not show any concerning findings. Urinalysis showed 1+ ketonuria without hematuria or signs of infection. Given that patient did complain of shortness of breath as well, I did elect to perform chest CT angiography, along with CT with IV contrast of the abdomen and pelvis. Radiologist suggested a duodenitis, as well as a ground glass opacity over the right upper lung field. Findings were discussed with the patient. At that time, the patient did feel comfortable with outpatient management. While awaiting for her ride to get here, the nurses did help her get up to go to the bathroom, and the patient had a near syncopal episode. She was then placed into bed with stable vital signs. Her IV had already been pulled for discharge. She wanted to rest for a brief period of time. She was given oral fluids as well. When I went back to reassess the patient after approximately 45 minutes, the patient reports that she still did not feel well enough to go home. At this point, IV access was reestablished. The patient was administered additional IV Zofran. An ECG was performed and was normal. The patient was placed back on monitoring specialist. A troponin was normal. An H&H was ordered, along with IV Protonix. At this point, I did reach out to our box office manager, and [facility] did [facility] to evaluate the patient, and agrees with admission. Please see their dictation for further treatment and final disposition. Administered Medications Ceftriaxone Sodium (Rocephin) 2,000 mg in 50 mls @ 100 mls/hr IV ONE STA Stop: 01/14/25 01:57 Last Admin: 01/14/25 01:56 Dose: 100 mls/hr Documented By: DERRELL Discontinued Medications Sodium Chloride (Nss) 1,000 mls @ 999 mls/hr IV .Q1H1M ONE Stop: 01/13/25 21:08 Last Infusion: 01/13/25 21:41 Dose: Infused Documented By: Admin: 01/13/25 20:16 Dose: 999 mls/hr Documented By: CARMELO Pantoprazole Sodium 80 mg/ (Dextrose) 120 mls @ 480 mls/hr IV ONE STA Stop: 01/14/25 00:36 Last Infusion: 01/14/25 01:31 Dose: Infused Documented By: Admin: 01/14/25 01:00 Dose: 480 mls/hr Documented By: DERRELL Ioversol (Optiray 320 125ml) 115 ml IV ONCE ONE Stop: 01/13/25 20:25 Last Admin: 01/13/25 20:25 Dose: 115 ml Documented By: ENRIEK Ondansetron HCl (Ondansetron Inj 2 Mg/Ml 2 Ml Vial) 4 mg IV NOW STA Stop: 01/13/25 20:09 Last Admin: 01/13/25 20:18 Dose: 4 mg Documented By: CARMELO Ondansetron HCl (Ondansetron Home Pack 4mg Od Tab) 1 each PO NOW ONE Stop: 01/13/25 21:41 Last Admin: 01/13/25 21:52 Dose: 1 each Documented By: CARMELO Ondansetron HCl (Ondansetron Inj 2 Mg/Ml 2 Ml Vial) 4 mg IV NOW STA Stop: 01/14/25 00:03 Last Admin: 01/14/25 00:59 Dose: 4 mg Documented By: DERRELL Sucralfate (Sucralfate 1 Gm/10 Ml Udc) 1 gm PO NOW STA Stop: 01/13/25 20:09 Last Admin: 01/13/25 20:14 Dose: 1 gm Documented By: CARMELO Medical Decision Making Medical Records Attestation: I reviewed the patient's medical records. Home Medications was personally reviewed by me Laboratory Data Attestation: I reviewed the patient's lab results. 01/14/25 00:55 01/13/25 18:25 Lab Results 01/13/25 01/13/25 01/14/25 Range/Units 18:25 19:23 00:55 WBC 8.57 (4.8-10.8) K/ul RBC 3.72 L (4.20-5.40) M/uL Hgb 8.9 L 7.5 L (12.0-16.0) g/dL Hct 29.0 L 24.3 L (37.0-47.0) % MCV 78.0 L (80.0-100.0) fL MCH 23.9 L (25.0-34.0) pg MCHC 30.7 L (32.0-36.0) g/dL RDW Std Deviation 60.5 H (36.4-46.3) fL RDW Coeff of [place] 21.5 H (11.5-14.5) % Plt Count 250 (130-400) K/uL MPV 9.6 (9.4-12.4) fL Immature Gran % (Auto) 0.6 % Neut % (Auto) 71.6 % Lymph % (Auto) 17.0 % Shannon % (Auto) 6.0 % Eos % (Auto) 3.7 % Baso % (Auto) 1.1 % Neut # (Auto) 6.14 (1.40-6.50) K/uL Lymph # (Auto) 1.46 (1.20-3.40) K/uL Shannon # (Auto) 0.51 (0.11-0.59) K/uL Eos # (Auto) 0.32 (0.00-0.50) K/uL Baso # (Auto) 0.09 (0.00-0.20) K/uL Immature Gran # (Auto) 0.05 (0.01-0.20) K/uL Polychromasia 1+ Anisocytosis Present Stomatocytes 1+ Sodium 138 (136-145) mmol/L Potassium 4.3 (3.5-5.1) mmol/L Chloride 105 (98-107) mmol/L Carbon Dioxide 26 (21-32) mmol/L Anion Gap 7 (3-11) BUN 41 H (6-23) mg/dl Creatinine 0.57 L (0.6-1.2) mg/dl Est Cr Clr Drug Dosing 119.0 ml/min eGFR 102.68 BUN/Creatinine Ratio 71.9 H (10-20) Glucose 111 H (70-99(Fasting)) mg/dl Calcium 8.4 L (8.6-10.3) mg/dl Total Bilirubin 0.3 (0.2-1.0) mg/dl AST 14 (13-39) U/L ALT 9 (7-52) U/L Alkaline Phosphatase 66 (34-104) U/L Troponin I High Sens 7.8 (0-14) pg/ml Total Protein 6.4 (6.0-8.3) gm/dl Albumin 3.3 L (3.4-5.0) gm/dl Globulin 3.1 (2.5-4.0) gm/dl Albumin/Globulin Ratio 1.1 (0.9-2) Lipase 17 (11-82) U/L Urine Color Yellow Urine Appearance Clear (Clear) Urine pH 7.5 (4.5-7.5) Ur Specific [place] 1.020 (1.000-1.030) Urine Protein Negative (Negative) Urine Glucose (UA) Negative (Negative) Urine Ketones 1+ H (Negative) Urine Blood Negative (Negative) Urine Nitrite Negative (Negative) Urine Bilirubin Negative (Negative) Urine Urobilinogen Negative (Negative) Ur Leukocyte Esterase Negative (Negative) Urine Comment Imaging Data Attestation: I personally reviewed and interpreted this imaging study as follows: My Impression: My interpretation of the chest CT angiography does not show evidence for pulmonary emboli, pericarditis, obvious pneumonia or pneumothorax. Radiologist does question ground-glass opacities in the right upper lobe which could represent atelectasis versus mild infectious/inflammatory process. My interpretation of a CT with IV contrast of the abdomen and pelvis did not show evidence for any abdominal free air, fluid within the gallbladder fossa or lower pelvic region, bowel obstruction, appendicitis or diverticulitis. Radiologist does question a possible duodenitis as well. Radiologist reports were also reviewed with concurrence. Radiologist's Impression: Abdomen/Pelvis CT 01/13/25 20:08 Exam(s): CT ABDOMEN + PELVIS With Contrast IV Amt: 115 ml optiray 320 EXAM: CT Abdomen and Pelvis With Intravenous Contrast CLINICAL HISTORY: Reason for exam: Abd pain, s/p cholecystectomy and umb hernia repai. TECHNIQUE: Axial computed tomography images of the abdomen and pelvis with intravenous contrast. CTDI is 28.14 mGy and DLP is 2215.42 mGy-cm. Automated exposure control was utilized for the study. A dose lowering technique was utilized adhering to the principles of ALARA. CONTRAST: Patient received 115 ml optiray 320 of IV contrast COMPARISON: CT abdomen/pelvis on 09/20/2024 FINDINGS: Lung bases: Unremarkable. No mass. No consolidation. ABDOMEN: Liver: Hepatic steatosis. Gallbladder and bile ducts: Prior cholecystectomy. No ductal dilation. Pancreas: Unremarkable. No mass. No ductal dilation. Spleen: Unremarkable. No splenomegaly. Adrenals: Unremarkable. No mass. Kidneys and ureters: Small hypodensities in the kidneys probably represent renal cysts, but could be confirmed with ultrasound if clinically indicated. No hydronephrosis or obstructing ureteral stone. Stomach and bowel: Wall thickening of the duodenal bulb may be secondary to underdistention versus infectious/inflammatory process. Diverticulosis without evidence of diverticulitis. PELVIS: Appendix: Normal appendix. Bladder: Unremarkable. No mass. Reproductive: Unremarkable as visualized. ABDOMEN and PELVIS: Intraperitoneal space: Unremarkable. No free air. No significant fluid collection. Bones/joints: Degenerative changes of the spine. No acute fracture. No dislocation. Soft tissues: Nonspecific periumbilical edema and small amount of fluid which could be secondary to postoperative seroma. Vasculature: Phleboliths in the pelvis. Atherosclerotic changes of the vasculature. No abdominal aortic aneurysm or dissection. Lymph nodes: Unremarkable. No enlarged lymph nodes. IMPRESSION: 1. Nonspecific periumbilical edema and small amount of fluid which could be secondary to postoperative seroma. 2. Wall thickening of the duodenal bulb may be secondary to underdistention versus infectious/inflammatory process. Electronically signed by: Bowen Lpoez M.D. 01/13/25 20:58 PM Chest CTA 01/13/25 20:08 Exam(s): CTA CHEST IV Amt: 115 ml optiray 320 EXAM: CT Angiography Chest With Intravenous Contrast CLINICAL HISTORY: Reason for exam: PE w/u, SOB. TECHNIQUE: Axial computed tomographic angiography images of the chest with intravenous contrast. CTDI is 28.14 mGy and DLP is 2215.42 mGy-cm. Automated exposure control was utilized for the study. A dose lowering technique was utilized adhering to the principles of ALARA. MIP reconstructed images were created and reviewed. COMPARISON: CT chest on 08/17/2024 FINDINGS: Pulmonary arteries: Unremarkable. No pulmonary embolus identified. Aorta: Atherosclerotic changes in the aorta. No aortic aneurysm or dissection. Lungs: Nonspecific mild focal ground-glass opacities in the right upper lobe which could represent atelectasis versus mild infectious/inflammatory process. Pleural space: Unremarkable. No significant effusion. No pneumothorax. Heart: Unremarkable. No cardiomegaly. No significant pericardial effusion. No evidence of RV dysfunction. Bones/joints: Degenerative changes of the spine. No acute fracture. No dislocation. Soft tissues: Unremarkable. Lymph nodes: Unremarkable. No enlarged lymph nodes. IMPRESSION: 1. No pulmonary embolus identified. 2. Nonspecific mild focal ground-glass opacities in the right upper lobe which could represent atelectasis versus mild infectious/inflammatory process. 3. Atherosclerotic changes in the aorta. No aortic aneurysm or dissection. Electronically signed by: Bowen Lopez M.D. 01/13/25 20:51 PM ECG Data Attestation: I personally reviewed and interpreted this ECG as follows: Indication: + SOB/dyspnea and + weakness Rate (beats per minute): 71 Rhythm: + normal sinus ECG Intervals/blocks: + Normal QRS, + Normal QT and + Normal CO ECG [place]: + Normal ECG ST segments: + Normal ST segments Comparison ECG Date: from (12/05/2024) Change: the following changes noted (Previous borderline criteria for lateral infarct and nonspecific T wave abnormalities in lateral leads are not noted.) MDM Narrative Cardiac monitoring: An order was placed for continuous cardiac monitoring. The monitor shows a rate of 84 bpm with a normal sinus rhythm. hospital monitor history was reviewed throughout the evaluation, and no dysrhythmias were noted. See ED Course section for further details of today's visit. The patient presents with primary complaint of abdominal discomfort, distention and shortness of breath. The patient underwent laparoscopic cholecystectomy and umbilical hernia repair on 01/01/2025. Since her surgery, the patient reports that she has had generalized abdominal discomfort. She also notes that she has also had black stools, reporting a history of gastric ulcers. Review of labs today does show a low hemoglobin, however certainly not low enough for blood transfusion, and appears to be mostly baseline for the patient. The patient did have her last EGD performed this past summer, showing nonbleeding gastric ulcers. CT imaging showed a questionable duodenitis, without any other concerning intra-abdominal findings. The patient reports that she has an appointment in the morning with her general surgeon, however when she went to the bathroom prior to discharge, had a near syncopal episode with nurses present. After brief period of rest, the patient reported that she still did not feel well. At this point, ECG and troponin were ordered and were normal. Based on her ongoing symptoms, the patient did not feel safe for discharge, therefore the case was further discussed with the [facility] hospitalist service. It is noted that the patient's repeat H&H had dropped almost 1.5 points over 6.5 hours while in the emergency department. Please see hospitalist dictation for further treatment and final disposition. Impression Acute upper GI bleed, Acute duodenitis, Abdominal wall seroma, Status post laparoscopic cholecystectomy, History of umbilical hernia repair, Anemia, History of gastric ulcer Discharge Plan Visit Data Chief Complaint: Illness Stated Complaint: PAIN, SICK, SOB, SWELLING ED Provider: Marcus Ortiz ED Midlevel Provider: Kashif Claros Discharge Problem: Acute upper GI bleed, Acute duodenitis, Abdominal wall seroma, Status post laparoscopic cholecystectomy, History of umbilical hernia repair, Anemia, History of gastric ulcer Patient Disposition: Home - Self-Care Condition: Good Discharge Instructions Activity Restrictions/Additional Instructions: CT imaging today does show mild swelling of the lower portion of the stomach called the duodenum. Recommend a soft food or bland diet for now. Tylenol as needed for pain. You have been provided a home pack and prescription for Zofran ODT that can be taken every 6 hours as needed for nausea. Follow-up with your general surgeon tomorrow for your postop follow-up, as well as to discuss your ER visit this evening. Interventions: ED Discharge Assessment Last Done: 01/13/25 21:56 Forms Stand Alone Forms: My [facility], Important Visit Information Prescriptions Prescriptions: New ondansetron 4 mg tablet,disintegrating 4 mg PO Q6H PRN (Reason: nausea and vomiting) Qty: 20 0RF No Action peg 3350-electrolytes [Golytely] 236-22.74-6.74 -5.86 gram recon soln 240 ml PO Q10M Qty: 4000 0RF Rx Instructions: DID NOT START YET- 01/14/25 Take per split dose instructions ofloxacin 0.3 % drops 5 drp otic (ear) BID 12 Days Qty: 5 1RF Rx Instructions: LEFT EAR cholecalciferol (vitamin D3) 1,250 mcg (50,000 unit) capsule 1,250 mcg PO .weekly Qty: 12 0RF Rx Instructions: MONDAY NIGHT ferrous gluconate 324 mg (38 mg iron) tablet 324 mg PO DAILY Qty: 90 3RF oxycodone 5 mg tablet 5 - 10 mg PO .[id number] PRN (Reason: pain, for initial therapy, max 6 tabs per day) Qty: 15 0RF Rx Instructions: DID NOT START YET- 01/14/25 oxycodone 5 mg tablet 5 mg PO .[id number] PRN (Reason: pain, for ongoing therapy, max 6tabs/day) Qty: 15 0RF Rx Instructions: DID NOT START YET- 01/14/25 All Day Allergy (cetirizine) 10 mg capsule 10 mg PO DAILY PRN (Reason: allergy symptoms) Qty: 14 0RF (DME) Poise Pads Pad See Rx Instructions .Route Qty: 264 6RF Rx Instructions: change 8 times daily pantoprazole 40 mg tablet,delayed release (DR/EC) 40 mg PO BID Qty: 60 3RF sucralfate [Carafate] 100 mg/mL suspension 5 ml PO QID 7 Days Qty: 140 3RF famotidine [Acid Esthetician/Skin Therapist (famotidine)] 20 mg tablet 20 mg PO BID PRN (Reason: GERD) solifenacin 10 mg tablet 10 mg PO QAM acetaminophen [Tylenol Extra Strength] 500 mg Tablet 1,000 mg PO Q6H PRN (Reason: Pain) lisinopril 2.5 mg tablet 2.5 mg PO HS Patient Comments: doesn't always take Rx Instructions: PT HAS HAD MED ON HOLD; IT MAKES PT SLEEPY Referrals Referrals: Gadiel Granda DO [Primary Care Provider] - ED DC CONDITION Conditon at Discharge Condition at Discharge: Fair
[2025-01-13] MEDS: SUCRALFATE 1 GM/10 ML UDC PO STA (20:14)
[2025-01-13] MEDS: SODIUM CHLORIDE 0.9% 1,000 ML IV ONE (20:16)
[2025-01-13] MEDS: ONDANSETRON INJ 2 MG/ML 2 ML VIAL IV STA (20:18)
[2025-01-13] MEDS: OPTIRAY 320 125ml IV ONE (20:25)
--- NOTE | 2025-01-13 20:52 | CT Scan Report ---
Exam(s): CTA CHEST IV Amt: 115 ml optiray 320 EXAM: CT Angiography Chest With Intravenous Contrast CLINICAL HISTORY: Reason for exam: PE w/u, SOB. TECHNIQUE: Axial computed tomographic angiography images of the chest with intravenous contrast. CTDI is 28.14 mGy and DLP is 2215.42 mGy-cm. Automated exposure control was utilized for the study. A dose lowering technique was utilized adhering to the principles of ALARA. MIP reconstructed images were created and reviewed. COMPARISON: CT chest on 08/17/2024 FINDINGS: Pulmonary arteries: Unremarkable. No pulmonary embolus identified. Aorta: Atherosclerotic changes in the aorta. No aortic aneurysm or dissection. Lungs: Nonspecific mild focal ground-glass opacities in the right upper lobe which could represent atelectasis versus mild infectious/inflammatory process. Pleural space: Unremarkable. No significant effusion. No pneumothorax. Heart: Unremarkable. No cardiomegaly. No significant pericardial effusion. No evidence of RV dysfunction. Bones/joints: Degenerative changes of the spine. No acute fracture. No dislocation. Soft tissues: Unremarkable. Lymph nodes: Unremarkable. No enlarged lymph nodes. IMPRESSION: 1. No pulmonary embolus identified. 2. Nonspecific mild focal ground-glass opacities in the right upper lobe which could represent atelectasis versus mild infectious/inflammatory process. 3. Atherosclerotic changes in the aorta. No aortic aneurysm or dissection. Electronically signed by: Bowen Lopez M.D. 01/13/25 20:51 PM
--- NOTE | 2025-01-13 20:58 | CT Scan Report ---
Exam(s): CT ABDOMEN + PELVIS With Contrast IV Amt: 115 ml optiray 320 EXAM: CT Abdomen and Pelvis With Intravenous Contrast CLINICAL HISTORY: Reason for exam: Abd pain, s/p cholecystectomy and umb hernia repai. TECHNIQUE: Axial computed tomography images of the abdomen and pelvis with intravenous contrast. CTDI is 28.14 mGy and DLP is 2215.42 mGy-cm. Automated exposure control was utilized for the study. A dose lowering technique was utilized adhering to the principles of ALARA. CONTRAST: Patient received 115 ml optiray 320 of IV contrast COMPARISON: CT abdomen/pelvis on 09/20/2024 FINDINGS: Lung bases: Unremarkable. No mass. No consolidation. ABDOMEN: Liver: Hepatic steatosis. Gallbladder and bile ducts: Prior cholecystectomy. No ductal dilation. Pancreas: Unremarkable. No mass. No ductal dilation. Spleen: Unremarkable. No splenomegaly. Adrenals: Unremarkable. No mass. Kidneys and ureters: Small hypodensities in the kidneys probably represent renal cysts, but could be confirmed with ultrasound if clinically indicated. No hydronephrosis or obstructing ureteral stone. Stomach and bowel: Wall thickening of the duodenal bulb may be secondary to underdistention versus infectious/inflammatory process. Diverticulosis without evidence of diverticulitis. PELVIS: Appendix: Normal appendix. Bladder: Unremarkable. No mass. Reproductive: Unremarkable as visualized. ABDOMEN and PELVIS: Intraperitoneal space: Unremarkable. No free air. No significant fluid collection. Bones/joints: Degenerative changes of the spine. No acute fracture. No dislocation. Soft tissues: Nonspecific periumbilical edema and small amount of fluid which could be secondary to postoperative seroma. Vasculature: Phleboliths in the pelvis. Atherosclerotic changes of the vasculature. No abdominal aortic aneurysm or dissection. Lymph nodes: Unremarkable. No enlarged lymph nodes. IMPRESSION: 1. Nonspecific periumbilical edema and small amount of fluid which could be secondary to postoperative seroma. 2. Wall thickening of the duodenal bulb may be secondary to underdistention versus infectious/inflammatory process. Electronically signed by: Bowen Lopez M.D. 01/13/25 20:58 PM
[2025-01-13] MEDS: ONDANSETRON HOME PACK 4MG OD TAB PO ONE (21:52)
[2025-01-14] MEDS: ONDANSETRON INJ 2 MG/ML 2 ML VIAL IV STA (00:59)
[2025-01-14 01:19] LABS: Hematocrit (blood only) 24.3 % (37.0-47.0); Hemoglobin 7.5 g/dL (12.0-16.0)
--- NOTE | 2025-01-14 01:25 | History & Physical Report ---
Date of Service January 14, 2025 Assessment & Plan (1) Acute upper GI bleed: (2) History of gastric ulcer: (3) Status post laparoscopic cholecystectomy: (4) Anemia: Plan The patient is a 64-year-old female with a past medical history of gastric ulcer, anemia, abdominal wall seroma, acute duodenitis, chronic venous insufficiency, sensorineural hearing loss, unspecified psychosis, nicotine dependence, alcohol abuse, diabetes, and anxiety and depression. She underwent a cholecystectomy and hernia repair 01/01/2025. She presents to the emergency department with complaint of abdominal pain, abdominal distention, nausea, shortness of breath over the past few days. She also reports dark stools, similar to prior episode of bleeding from gastric ulcer. She underwent an EGD on 08/10/2024, which showed normal esophagus, nonbleeding gastric ulcers with no stigmata of bleeding, erosive gastropathy with no bleeding and no stigmata of recent bleeding, the examined duodenum was normal. Initial hemoglobin on admission was 8.9, with her normal range of 10.4-11.0. ED was told to start pantoprazole 80 mg IV, and [facility] and [facility]. Of note, she denies actual vomiting, but reports that she is throwing up into her mouth. Acute upper GI bleed/history of gastric ulcers/history of portal gastropathy- NPO EGD performed on 08/10/2024 notes nonbleeding gastric ulcers and nonbleeding portal gastropathy CT of abdomen pelvis notes postop seroma. Duodenal bulb had a thickened wall. Advised pantoprazole 80 mg IV started in the ED Pantoprazole 40 mg IV twice daily H&H every 4 hours Ceftriaxone 2 g IV daily CBC with differential, renal function panel magnesium every morning Acetaminophen 1 g IV every 8 hours as needed for mild pain or fever Zofran 4 mg IV every 6 hours as needed Consult gastroenterology Symptomatic anemia- Hemoglobin was 8.9 upon admission, with base range 10.4-11.0 Hemoglobin 4 hours after first decreased to 7.5. Blood pressure and heart rate have been maintained. Type and screen has been performed Status post cholecystectomy/hernia repair- Abdominal wall seroma noted stable History of Present Illness Primary Care Provider: Gadiel Granda DO The patient is a 64-year-old female with a past medical history of gastric ulcer, anemia, abdominal wall seroma, acute duodenitis, chronic venous insufficiency, sensorineural hearing loss, unspecified psychosis, nicotine dependence, alcohol abuse, diabetes, and anxiety and depression. She underwent a cholecystectomy and hernia repair 01/01/2025. She presents to the emergency department with complaint of abdominal pain, abdominal distention, nausea, shortness of breath over the past few days. She also reports dark stools, s imilar to prior episode of bleeding from gastric ulcer. She underwent an EGD on 08/10/2024, which showed normal esophagus, nonbleeding gastric ulcers with no stigmata of bleeding, erosive gastropathy with no bleeding and no stigmata of recent bleeding, the examined duodenum was normal. Initial hemoglobin on admission was 8.9, with her normal range of 10.4-11.0. ED was told to start pantoprazole 80 mg IV, and [facility] and treatment Allergies Allergy/AdvReac Type Severity Reaction Status Date / Time red dye Allergy Mild Unknown Verified 01/01/25 09:42 furosemide [From Lasix] Allergy Unknown Unknown Verified 01/01/25 15:11 lithium Allergy Unknown lethargic Verified 01/01/25 09:42 varenicline [From Chantix] Allergy Unknown lethargic Verified 01/01/25 09:42 cyclobenzaprine AdvReac Mild Unknown Verified 01/01/25 15:22 fentanyl AdvReac Unknown uknown Verified 01/01/25 09:42 Home Medications Medication Instructions Recorded Confirmed Type incontinence pad, liner, disp #[id number] ea 05/27/24 12/09/24 Rx (Poise Pads) acetaminophen 500 mg tablet 1,000 mg PO Q6H PRN Pain 08/17/24 01/14/25 History (Tylenol Extra Strength) cetirizine 10 mg capsule (All Day 10 mg PO DAILY PRN allergy 08/19/24 01/14/25 Rx Allergy (cetirizine)) symptoms #14 caps sucralfate 100 mg/mL oral 5 ml PO QID 7 days #140 mL 09/21/24 01/14/25 Rx suspension (Carafate) peg 3350-electrolytes 236 240 ml PO Q10M #4,000 mL 09/30/24 01/14/25 Rx gram-22.74 gram-6.74 gram-5.86 gram solution (Golytely) lisinopril 2.5 mg tablet 2.5 mg PO HS 10/03/24 01/14/25 History pantoprazole 40 mg tablet,delayed 40 mg PO BID #60 tabs 11/20/24 01/14/25 Rx release ofloxacin 0.3 % eye drops 5 drp otic (ear) BID 12 days #5 mL 12/20/24 01/14/25 Rx famotidine 20 mg tablet (Acid 20 mg PO BID PRN GERD 12/26/24 01/14/25 History [employer] (famotidine)) solifenacin 10 mg tablet 10 mg PO QAM 12/26/24 01/14/25 History cholecalciferol (vitamin D3) 1,250 1,250 mcg PO .weekly #12 caps 12/27/24 01/14/25 Rx mcg (50,000 unit) capsule ferrous gluconate 324 mg (38 mg 324 mg PO DAILY #90 tabs 01/06/25 01/14/25 Rx iron) tablet oxycodone 5 mg tablet 5 - 10 mg (1 - 2 x 5 mg) PO 01/06/25 01/14/25 Rx .[id number]-[id number] PRN pain, for initial therapy, max 6 tabs per day #15 tabs oxycodone 5 mg tablet 5 mg PO .[id number] PRN pain, for 01/06/25 01/14/25 Rx ongoing therapy, max 6tabs/day #15 tabs ondansetron 4 mg disintegrating 4 mg PO Q6H PRN nausea and 01/13/25 Rx tablet vomiting #20 tabs Past Med/Surg History Problem List (Updated 01/14/25 @ 02:01 by Kashif Claros) Acute upper GI bleed (Acute) History of gastric ulcer (Acute) Anemia (Acute) History of umbilical hernia repair (Acute) Status post laparoscopic cholecystectomy (Acute) Abdominal wall seroma (Acute) Acute duodenitis (Acute) Reducible umbilical hernia Cerumen debris on tympanic membrane of left ear Left flank pain Gastric ulcer Prerenal azotemia (Acute) Chest pain (Acute) Anemia Chronic venous insufficiency Neurogenic claudication Cervicalgia Chronic low back pain Ascending aorta dilatation Left atrial enlargement Moderate mitral regurgitation Edema Cholelithiasis Otalgia of left ear Sensorineural hearing loss, unilateral, left ear, with unrestricted hearing on the contralateral side Unspecified psychosis Nicotine dependence Mood disorder (Acute) Depression Alcohol abuse Diabetes (Chronic) Anxiety and depression (Chronic) Medical History (Updated 01/14/25 @ 02:01 by Kashif Claros) History of anemia Left arm numbness "due to pinched nerve in neck" GERD (gastroesophageal reflux disease) occasional regurgitation history of occ mild bloody emesis in the past- resolved with medications upcoming EGD/colonoscopy 01/2025 Homelessness pt currently staying in a care home but states 'it's day to day'; PCP is aware and working on services Poor historian Mild ascending aorta dilatation COPD (chronic obstructive pulmonary disease) per chart review; pt denies; no inhalers Nicotine dependence per chart review; pt denies current or hx of nicotine use History of alcohol abuse per chart review, pt denies current or hx of ETOH abuse Edema b/l LE edema chronic (Lasix not effective per patient) Vitamin D deficiency Chronic venous insufficiency Unspecified psychosis per chart review; pt denies Mood disorder per chart review; pt denies Diabetes per chart review; pt denies Depression per chart review; pt denies Lesion of tongue procedure 12/10/24 to address>procedure cancelled, PCP didn't clear her Cervicalgia ongoing, ROM is not limited Chronic low back pain History of cardioversion per pt>01/2024, over 5 day period @ [facility], following cardiac arrest; 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 Her cardiac workup was unremarkable with the exception of mild mitral regurgitation and left atrial enlargement. Her troponin levels were negative, and EKG showed no acute changes. She did have a nuclear stress test while there which she was told was normal, although I do not have that report. She has a favorable lipid panel with total cholesterol of 168 mg/dL, LDL 94 mg/dL, HDL 67 mg/dL. Her BNP was elevated at 161 although they do not mentioned any chest x-ray results were the presence of pulmonary edema." records from [facility] scanned into [place] chart. Hx of cardiac arrest per pt> 02/03/24, [place], [place], had to be "shocked twice"; f/u cardiology [facility] per [place] record-Nikolay Cervantes "patient was hospitalized in [place] in January 2024 with a suspected COPD exacerbation, atypical chest pain, possible cellulitis versus venous stasis dermatitis. Her cardiac workup was unremarkable with the exception of mild mitral regurgitation and left atrial enlargement. Her troponin levels were negative, and EKG showed no acute changes. She did have a nuclear stress test while there which she was told was normal, although I do not have that report. She has a favorable lipid panel with total cholesterol of 168 mg/dL, LDL 94 mg/dL, HDL 67 mg/dL. Her BNP was elevated at 161 although they do not mentioned any chest x-ray results were the presence of pulmonary edema." records from [facility] scanned into [place] chart. History of stroke "Mild 04/2024, no residual effects" per pt; no mention in chart of hx of CVA Hearing loss of left ear Moderate mitral regurgitation pt sees [facility] Cardio 01/2024, [place], [place]-"dx with leaky heart valves" Hx of gastric ulcer [facility] admission 08/2024; f/u EGD scheduled 01/2025 Urinary incontinence Surgical History (Updated 01/13/25 @ 21:43 by Kashif Claros) H/O umbilical hernia repair (01/01/25) p Robotic assisted Laparoscopic Cholecystectomy(Not Applicable) - Bebeto Alcaraz DO, FACS s Open Umbilical Hernia Repair(Not Applicable), diagnostic laparoscopy- Bebeto Alcaraz DO, FACS Hx laparoscopic cholecystectomy (01/01/25) p Robotic assisted Laparoscopic Cholecystectomy(Not Applicable) - Bebeto Alcaraz DO, FACS s Open Umbilical Hernia Repair(Not Applicable), diagnostic laparoscopy- Bebeto Alcaraz DO, FACS History of laparoscopy (~1970) ovarian tumor resection Hx of colonoscopy History of esophagogastroduodenoscopy (EGD) H/O hand surgery History of bladder surgery Hx of tonsillectomy Hx of wisdom tooth extraction Family History Aunt Breast cancer Sister Breast cancer Denies family history of Diabetes Myocardial infarction Lung cancer Colorectal cancer Stroke Social History Smoking Status: Never smoker Tobacco Type: Declines Age Started Using Tobacco: 16; Age Quit Using Tobacco: 17; packs per day: 0.5; Second Hand Exposure: No; Do You Dip or Chew Tobacco: No; Tobacco Cessation Education Requested by Patient: No Hx Alcohol Use: No Hx Substance Use: No Preferred Language: Telugu Communication Ability: Effective Visual Impairment: No Limitations Hearing Ability: Normal Card Scraper Required: No Beliefs That Will Affect Care: None marital status: Current Living Situation: Homeless and Other Current Living Situation Comment: Homeless/ Day to day care home current occupational status: unemployed How many Children do You have: 2 Other Information That Helps Us Care for You: No Feels Safe at Home: Yes Safety Concerns: Feels Safe At This Time Childhood Exposure to Second-Hand Smoke: No Diet: regular caffeine: No during the past year weight has: increased > 10 lbs Dental Care, Regularly: No Physical Activity Frequency: Daily Seatbelt Use: always Sunscreen Use: No Assistive Devices: None Review of Systems Review of Systems: The patient denies chest pain, palpitations, cough, lower extremity swelling, sore throat, fevers, chills, sweats, blood in urine , dysuria, urinary frequency or urgency, lightheadedness, dizziness, headache, memory loss, loss of consciousness, imbalance, focal weakness, numbness or tingling in arms or legs, generalized arthralgias or myalgias, back or neck pain, or night sweats. The review of systems is otherwise negative other than for that already noted above, and at least 10 systems have been reviewed. Physical Exam Physical Exam: The patient is awake, alert and oriented 3, well developed and well nourished, normocephalic and atraumatic, lying in bed and in no acute distress. HEENT--PERRL, EOMI, mucous membranes and oropharynx dry. Neck--supple. No JVD. No bruits. Thyroid normal, trachea midline, no a denopathy. Heart--normal S1 and S2. No murmurs, rubs or gallops. Lungs--clear bilaterally, no respiratory distress, no accessory muscle use. Abdomen--normal bowel sounds and soft. Significant epigastric tenderness with palpation. Nondistended Extremities-- No edema. Dermatologic--normal skin turgor, normal color, no abnormal lymph nodes, no rash. Neurologic--cranial nerves II through XII grossly intact. Rheumatologic--normal range of motion. Psychiatric--normal affect. Results & Data Results & Data Vital Signs (Past 12 Hours) Vital Signs Temp Pulse Pulse Resp BP BP Pulse Ox 01/14/25 00:55 81 01/13/25 23:00 79 16 118/65 93 01/13/25 21:56 70 16 105/57 L 95 01/13/25 21:00 72 16 105/57 L 96 01/13/25 19:25 98 01/13/25 17:50 36.4 C L 84 20 122/79 97 O2 Del Method 01/14/25 00:55 01/13/25 23:00 Room Air 01/13/25 21:56 Room Air 01/13/25 21:00 Room Air 01/13/25 19:25 Room Air 01/13/25 17:50 Room Air Laboratory Results Laboratory Results WBC 8.57 K/ul (4.8-10.8) 01/13/25 18: RBC 3.72 M/uL (4.20-5.40) L 01/13/25 18: Hgb 7.5 g/dL (12.0-16.0) L 01/14/25 00:55 Hct 24.3 % (37.0-47.0) L 01/14/25 00:55 MCV 78.0 fL (80.0-100.0) L 01/13/25 18: MCH 23.9 pg (25.0-34.0) L 01/13/25 18: MCHC 30.7 g/dL (32.0-36.0) L 01/13/25 18: RDW Std Deviation 60.5 fL (36.4-46.3) H 01/13/25 18: RDW Coeff of [place] 21.5 % (11.5-14.5) H 01/13/25: Plt Count 250 K/uL (130-400) 01/13/25 18: MPV 9.6 fL (9.4-12.4) 01/13/25 18: Immature Gran % (Auto) 0.6 % 01/13/25 18: Neut % (Auto) 71.6 % 01/13/25 18:25 Lymph % (Auto) 17.0 % 01/13/25 18:25 Webb % (Auto) 6.0 % 01/13/25 18:25 Eos % (Auto) 3.7 % 01/13/25 18:25 Baso % (Auto) 1.1 % 01/13/25 18:25 Neut # (Auto) 6.14 K/uL (1.40-6.50) 01/13/25 18:25 Lymph # (Auto) 1.46 K/uL (1.20-3.40) 01/13/25 18:25 Webb # (Auto) 0.51 K/uL (0.11-0.59) 01/13/25 18:25 Eos # (Auto) 0.32 K/uL (0.00-0.50) 01/13/25 18:25 Baso # (Auto) 0.09 K/uL (0.00-0.20) 01/13/25 18:25 Immature Gran # (Auto) 0.05 K/uL (0.01-0.20) 01/13/25 18:25 Polychromasia 1+ 01/13/25 18:25 Anisocytosis Present 01/13/25 18:25 Stomatocytes 1+ 01/13/25 18:25 Sodium 138 mmol/L (136-145) 01/13/25 18:25 Potassium 4.3 mmol/L (3.5-5.1) 01/13/25 18:25 Chloride 105 mmol/L (98-107) 01/13/25 18:25 Carbon Dioxide 26 mmol/L (21-32) 01/13/25 18:25 Anion Gap 7 (3-11) 01/13/25 18:25 BUN 41 mg/dl (6-23) H 01/13/25 18:25 Creatinine 0.57 mg/dl (0.6-1.2) L 01/13/25 18:25 Est Cr Clr Drug Dosing 119.0 ml/min 01/13/25 18:25 eGFR 102.68 01/13/25 18:25 BUN/Creatinine Ratio 71.9 (10-20) H 01/13/25 18:25 Glucose 111 mg/dl (70-99(Fasting)) H 01/13/25 18:25 Calcium 8.4 mg/dl (8.6-10.3) L 01/13/25 18:25 Total Bilirubin 0.3 mg/dl (0.2-1.0) 01/13/25 18:25 AST 14 U/L (13-39) 01/13/25 18:25 ALT 9 U/L (7-52) 01/13/25 18:25 Alkaline Phosphatase 66 U/L (34-104) 01/13/25 18:25 Troponin I High Sens 7.8 pg/ml (0-14) 01/14/25 00:55 Total Protein 6.4 gm/dl (6.0-8.3) 01/13/25 18:25 Albumin 3.3 gm/dl (3.4-5.0) L 01/13/25 18:25 Globulin 3.1 gm/dl (2.5-4.0) 01/13/25 18:25 Albumin/Globulin Ratio 1.1 (0.9-2) 01/13/25 18:25 Lipase 17 U/L (11-82) 01/13/25 18:25 Urine Color Yellow 01/13/25 19:23 Urine Appearance Clear (Clear) 01/13/25 19:23 Urine pH 7.5 (4.5-7.5) 01/13/25 19:23 Ur Specific [place] 1.020 (1.000-1.030) 01/13/25 19:23 Urine Protein Negative (Negative) 01/13/25 19:23 Urine Glucose (UA) Negative (Negative) 01/13/25 19:23 Urine Ketones 1+ (Negative) H 01/13/25 19:23 Urine Blood Negative (Negative) 01/13/25 19:23 Urine Nitrite Negative (Negative) 01/13/25 19:23 Urine Bilirubin Negative (Negative) 01/13/25 19:23 Urine Urobilinogen Negative (Negative) 01/13/25 19:23 Ur Leukocyte Esterase Negative (Negative) 01/13/25 19:23 Urine Comment 01/13/25 19:23 Nasal Screen MRSA (PCR) Negative (Negative) 01/14/25 03:37 Blood Type O Positive 01/14/25 00:55 Antibody Screen NEGATIVE 01/14/25 00:55 Impressions Abdomen/Pelvis CT 01/13/25 20:08 Exam(s): CT ABDOMEN + PELVIS With Contrast IV Amt: 115 ml optiray 320 EXAM: CT Abdomen and Pelvis With Intravenous Contrast CLINICAL HISTORY: Reason for exam: Abd pain, s/p cholecystectomy and umb hernia repai. TECHNIQUE: Axial computed tomography images of the abdomen and pelvis with intravenous contrast. CTDI is 28.14 mGy and DLP is 2215.42 mGy-cm. Automated exposure control was utilized for the study. A dose lowering technique was utilized adhering to the principles of ALARA. CONTRAST: Patient received 115 ml optiray 320 of IV contrast COMPARISON: CT abdomen/pelvis on 09/20/2024 FINDINGS: Lung bases: Unremarkable. No mass. No consolidation. ABDOMEN: Liver: Hepatic steatosis. Gallbladder and bile ducts: Prior cholecystectomy. No ductal dilation. Pancreas: Unremarkable. No mass. No ductal dilation. Spleen: Unremarkable. No splenomegaly. Adrenals: Unremarkable. No mass. Kidneys and ureters: Small hypodensities in the kidneys probably represent renal cysts, but could be confirmed with ultrasound if clinically indicated. No hydronephrosis or obstructing ureteral stone. Stomach and bowel: Wall thickening of the duodenal bulb may be secondary to underdistention versus infectious/inflammatory process. Diverticulosis without evidence of diverticulitis. PELVIS: Appendix: Normal appendix. Bladder: Unremarkable. No mass. Reproductive: Unremarkable as visualized. ABDOMEN and PELVIS: Intraperitoneal space: Unremarkable. No free air. No significant fluid collection. Bones/joints: Degenerative changes of the spine. No acute fracture. No dislocation. Soft tissues: Nonspecific periumbilical edema and small amount of fluid which could be secondary to postoperative seroma. Vasculature: Phleboliths in the pelvis. Atherosclerotic changes of the vasculature. No abdominal aortic aneurysm or dissection. Lymph nodes: Unremarkable. No enlarged lymph nodes. IMPRESSION: 1. Nonspecific periumbilical edema and small amount of fluid which could be secondary to postoperative seroma. 2. Wall thickening of the duodenal bulb may be secondary to underdistention versus infectious/inflammatory process. Electronically signed by: Bowen Lopez M.D. 01/13/25 20:58 PM Chest CTA 01/13/25 20:08 Exam(s): CTA CHEST IV Amt: 115 ml optiray 320 EXAM: CT Angiography Chest With Intravenous Contrast CLINICAL HISTORY: Reason for exam: PE w/u, SOB. TECHNIQUE: Axial computed tomographic angiography images of the chest with intravenous contrast. CTDI is 28.14 mGy and DLP is 2215.42 mGy-cm. Automated exposure control was utilized for the study. A dose lowering technique was utilized adhering to the principles of ALARA. MIP reconstructed images were created and reviewed. COMPARISON: CT chest on 08/17/2024 FINDINGS: Pulmonary arteries: Unremarkable. No pulmonary embolus identified. Aorta: Atherosclerotic changes in the aorta. No aortic aneurysm or dissection. Lungs: Nonspecific mild focal ground-glass opacities in the right upper lobe which could represent atelectasis versus mild infectious/inflammatory process. Pleural space: Unremarkable. No significant effusion. No pneumothorax. Heart: Unremarkable. No cardiomegaly. No significant pericardial effusion. No evidence of RV dysfunction. Bones/joints: Degenerative changes of the spine. No acute fracture. No dislocation. Soft tissues: Unremarkable. Lymph nodes: Unremarkable. No enlarged lymph nodes. IMPRESSION: 1. No pulmonary embolus identified. 2. Nonspecific mild focal ground-glass opacities in the right upper lobe which could represent atelectasis versus mild infectious/inflammatory process. 3. Atherosclerotic changes in the aorta. No aortic aneurysm or dissection. Electronically signed by: Bowen Lopez M.D. 01/13/25 20:51 PM Code Status & VTE Plan Code Status Full code VTE Prophylaxis Plan VTE Prophylaxis will be ordered: Yes PG Care Time/CCT Total # of Minutes Spent Total Time Spent with Patient: Total time spent is greater than 50% in coordination of care (as documented) at patient's floor/unit and/or counseling patient: Coding Level of Care Code 94368 INT INP/OBS CARE 3/75MIN Diagnoses Acute upper GI bleed K92.2 History of gastric ulcer Z87.11 Status post laparoscopic cholecystectomy Z90.49 Anemia D64.9
[2025-01-14] MEDS: cefTRIAXone SODIUM 2,000 MG/50 ML BAG IV STA (01:56)
[2025-01-14] MEDS ORDERED: ACETAMINOPHEN 1,000 MG/100 ML VIAL IV PRN ×2 (03:11→22:13)
[2025-01-14] MEDS ORDERED: ONDANSETRON INJ 2 MG/ML 2 ML VIAL IV PRN (03:11)
--- NOTE | 2025-01-14 05:40 | Billing Data ---
Date of Service January 14, 2025 Coding Level of Care Code 38901 INT INP/OBS CARE
[2025-01-14 06:29] LABS: Hematocrit (blood only) 22.9 % (37.0-47.0); Hemoglobin 7.0 g/dL (12.0-16.0); Immature Granulocytes # (auto) 0.06 K/uL (0.01-0.20); Immature Granulocytes % (auto) 0.6 %; Mean Corpuscular Hemoglobin 23.6 pg (25.0-34.0); Mean Corpuscular Volume 77.4 fL (80.0-100.0); Platelet Count 224 K/uL (130-400); RDW Standard Deviation 59.6 fL (36.4-46.3); Red Blood Count 2.96 M/uL (4.20-5.40); White Blood Count 9.70 K/ul (4.8-10.8)
[2025-01-14 07:10] LABS: Hypochromasia Present; Polychromasia 1+
[2025-01-14 07:19] LABS: Albumin Level 3.1 gm/dl (3.4-5.0); Anion Gap 7.0 (3-11); Blood Urea Nitrogen 48.0 mg/dl (6-23); Calcium 7.8 mg/dl (8.6-10.3); Carbon Dioxide 22.0 mmol/L (21-32); Chloride 109.0 mmol/L (98-107); Creatinine Clr Calc Pharmacy 121.6 ml/min; Glucose 88.0 mg/dl (70-99(Fasting)); Magnesium 1.9 mg/dl (1.7-2.4); Potassium 3.7 mmol/L (3.5-5.1); Sodium 138.0 mmol/L (136-145)
[2025-01-14] MEDS: PANTOprazole 40 MG/10 ML SYR IV SCH (08:47)
[2025-01-14] MEDS: ONDANSETRON INJ 2 MG/ML 2 ML VIAL IV PRN (08:53)
[2025-01-14] MEDS ORDERED: SODIUM CHLORIDE 0.9% 100 ML IV PRN (08:54)
[2025-01-14] MEDS: MoRPHine SULFATE 2 MG/ML CARP IV PRN (08:56)
[2025-01-14] MEDS: OFLOXACIN 0.3% 75 DROPS/5 ML BTL OT SCH (08:58)
--- NOTE | 2025-01-14 09:37 | Gastrointestinal Consultation ---
Date of Consultation January 14, 2025 Assessment & Plan (1) History of gastric ulcer: (2) Anemia: (3) Melena: Plan Patient presented with complaints of abdominal pain and black stools. she reports this is similar to how she felt this past year when she was found to have gastric ulcers. Case discussed with Dr. Mccullough. - we discussed an EGD to further evaluate. she was agreeable. will plan to do this later today. - continue with protonix 40mg IV bid. - follow hgb/hct. transfuse as needed. Supervising Physician Co-Signing Physician Notes I personally saw and examined the patient. I have reviewed the chart and agree with the documentation provided by the AUTO RADIATOR MECHANIC including discussion about the assessment, treatment and plan. Briefly, 64 year old female with a past medical history of gastric ulcer, anemia, abdominal wall seroma, acute duodenitis, chronic venous insufficiency, sensorineural hearing loss, unspecified psychosis, nicotine dependence, alcohol abuse, diabetes, and anxiety and depression who presented to the ED on 01/13 with complaints of dark stools with increased frequency and feeling as she had this past year when she had developed gastric ulcers. August 08 she underwent an endoscopy and was found to have multiple gastric body and antral ulcers. They were clean-based. She has been on PPI and Carafate since that time. Complains more of esophagitis GERD and regurgitation symptoms this time around with melena and syncope. Plan for an EGD today to evaluate. Differential is gastric ulcers versus esophagitis History of Present Illness Reason for Consultation: UGIB, anemia, near syncope Requesting Physician: Manjinder Vizcarra MD Attending Physician: Eugene Ferrer MD History of Present Illness Patient is a 64 year old female with a past medical history of gastric ulcer, anemia, abdominal wall seroma, acute duodenitis, chronic venous insufficiency, sensorineural hearing loss, unspecified psychosis, nicotine dependence, alcohol abuse, diabetes, and anxiety and depression who presented to the ED on 01/13 with complaints of dark stools with increased frequency and feeling as she had this past year when she had developed gastric ulcers. She tells me that she "nearly passed out". She admits to abdominal pain that is in the epigastric region and mostly around recent surgical sites. She underwent a cholecystectomy and hernia repair 01/01/2025. Initial hemoglobin on admission was 8.9, which is lower than usual. She was started on pantoprazole 80 mg IV. She still has ongoing epigastric pain. no nausea/vomiting. no nsaid use. She had an EGD on 08/10/2024, which showed normal esophagus, nonbleeding gastric ulcers with no stigmata of bleeding, erosive gastropathy with no bleeding and no stigmata of recent bleeding, the examined duodenum was normal. The remainder of the GI ROS were unremarkable. 01/14/25 wbc 9.7, hgb 7, hct 22.9, plts 224, Na 138, K 3.7, BUN 48, Cr 0.55. 01/13/25 CT A/P - Nonspecific periumbilical edema and small amount of fluid which could be secondary to postoperative seroma. Wall thickening of the duodenal bulb may be secondary to underdistention versus infectious/inflammatory process. Allergies Allergy/AdvReac Type Severity Reaction Status Date / Time red dye Allergy Mild Unknown Verified 01/01/25 09:42 furosemide [From Lasix] Allergy Unknown Unknown Verified 01/01/25 15:11 lithium Allergy Unknown lethargic Verified 01/01/25 09:42 varenicline [From Chantix] Allergy Unknown lethargic Verified 01/01/25 09:42 cyclobenzaprine AdvReac Mild Unknown Verified 01/01/25 15:22 fentanyl AdvReac Unknown uknown Verified 01/01/25 09:42 Home Medications Medication Instructions Recorded Confirmed Type incontinence pad, liner, disp #[id number] ea 05/27/24 12/09/24 Rx (Poise Pads) acetaminophen 500 mg tablet 1,000 mg PO Q6H PRN Pain 08/17/24 01/14/25 History (Tylenol Extra Strength) cetirizine 10 mg capsule (All Day 10 mg PO DAILY PRN allergy 08/19/24 01/14/25 Rx Allergy (cetirizine)) symptoms #14 caps sucralfate 100 mg/mL oral 5 ml PO QID 7 days #140 mL 09/21/24 01/14/25 Rx suspension (Carafate) peg 3350-electrolytes 236 240 ml PO Q10M #4,000 mL 09/30/24 01/14/25 Rx gram-22.74 gram-6.74 gram-5.86 gram solution (Golytely) lisinopril 2.5 mg tablet 2.5 mg PO HS 10/03/24 01/14/25 History pantoprazole 40 mg tablet,delayed 40 mg PO BID #60 tabs 11/20/24 01/14/25 Rx release ofloxacin 0.3 % eye drops 5 drp otic (ear) BID 12 days #5 mL 12/20/24 01/14/25 Rx famotidine 20 mg tablet (Acid 20 mg PO BID PRN GERD 12/26/24 01/14/25 History Plumbing Foreman (famotidine)) solifenacin 10 mg tablet 10 mg PO QAM 12/26/24 01/14/25 History cholecalciferol (vitamin D3) 1,250 1,250 mcg PO .weekly #12 caps 12/27/24 01/14/25 Rx mcg (50,000 unit) capsule ferrous gluconate 324 mg (38 mg 324 mg PO DAILY #90 tabs 01/06/25 01/14/25 Rx iron) tablet oxycodone 5 mg tablet 5 - 10 mg (1 - 2 x 5 mg) PO 01/06/25 01/14/25 Rx .[id number] PRN pain, for initial therapy, max 6 tabs per day #15 tabs oxycodone 5 mg tablet 5 mg PO .[id number] PRN pain, for 01/06/25 01/14/25 Rx ongoing therapy, max 6tabs/day #15 tabs ondansetron 4 mg disintegrating 4 mg PO Q6H PRN nausea and 01/13/25 Rx tablet vomiting #20 tabs Patient History Medical History (Updated 01/14/25 @ 09:36 by Stu Smith PA-C) History of anemia Left arm numbness "due to pinched nerve in neck" GERD (gastroesophageal reflux disease) occasional regurgitation history of occ mild bloody emesis in the past- resolved with medications upcoming EGD/colonoscopy 01/2025 Homelessness pt currently staying in a residential but states 'it's day to day'; PCP is aware and working on services Poor historian Mild ascending aorta dilatation COPD (chronic obstructive pulmonary disease) per chart review; pt denies; no inhalers Nicotine dependence per chart review; pt denies current or hx of nicotine use History of alcohol abuse per chart review, pt denies current or hx of ETOH abuse Edema b/l LE edema chronic (Lasix not effective per patient) Vitamin D deficiency Chronic venous insufficiency Unspecified psychosis per chart review; pt denies Mood disorder per chart review; pt denies Diabetes per chart review; pt denies Depression per chart review; pt denies Lesion of tongue procedure 12/10/24 to address>procedure cancelled, PCP didn't clear her Cervicalgia ongoing, ROM is not limited Chronic low back pain History of cardioversion per pt>01/2024, over 5 day period @ [facility], following cardiac arrest; f/u university archivist from [facility] per [place] cardio record, "patient was hospitalized in [place] in January 2024 with a suspected COPD exacerbation, atypical chest pain, possible cellulitis versus venous stasis dermatitis. Her cardiac workup was unremarkable with the exception of mild mitral regurgitation and left atrial enlargement. Her troponin levels were negative, and EKG showed no acute changes. She did have a nuclear stress test while there which she was told was normal, although I do not have that report. She has a favorable lipid panel with total cholesterol of 168 mg/dL, LDL 94 mg/dL, HDL 67 mg/dL. Her BNP was elevated at 161 although they do not mentioned any chest x-ray results were the presence of pulmonary edema." records from [facility] scanned into [place] chart. Hx of cardiac arrest per pt[place]03/24[place] had to be "shocked twice"; f/u cardiology [facility] per [place] record-[facility] "patient was hospitalized in [place] in January 2024 with a suspected COPD exacerbation, atypical chest pain, possible cellulitis versus venous stasis dermatitis. Her cardiac workup was unremarkable with the exception of mild mitral regurgitation and left atrial enlargement. Her troponin levels were negative, and EKG showed no acute changes. She did have a nuclear stress test while there which she was told was normal, although I do not have that report. She has a favorable lipid panel with total cholesterol of 168 mg/dL, LDL 94 mg/dL, HDL 67 mg/dL. Her BNP was elevated at 161 although they do not mentioned any chest x-ray results were the presence of pulmonary edema." records from [facility] scanned into [place] chart. History of stroke "Mild 04/2024, no residual effects" per pt; no mention in chart of hx of CVA Hearing loss of left ear Moderate mitral regurgitation pt [facility] 01/2024, Dr. Guerin [place], [place]dx with leaky heart valves" Hx of gastric ulcer [facility] admission 08/2024; f/u EGD scheduled 01/2025 Urinary incontinence Surgical History (Updated 01/13/25 @ 21:43 by Kashif Claros) H/O umbilical hernia repair (01/01/25) p Robotic assisted Laparoscopic Cholecystectomy(Not Applicable) - Bebeto Alcaraz DO, FACS s Open Umbilical Hernia Repair(Not Applicable), diagnostic laparoscopy- Bebeto Alcaraz DO, FACS Hx laparoscopic cholecystectomy (01/01/25) p Robotic assisted Laparoscopic Cholecystectomy(Not Applicable) - Bebeto Alcaraz DO, FACS s Open Umbilical Hernia Repair(Not Applicable), diagnostic laparoscopy- Bebeto Alcaraz DO, FACS History of laparoscopy (~1970) ovarian tumor resection Hx of colonoscopy History of esophagogastroduodenoscopy (EGD) H/O hand surgery History of bladder surgery Hx of tonsillectomy Hx of wisdom tooth extraction Family History Aunt Breast cancer Sister Breast cancer Denies family history of Diabetes Myocardial infarction Lung cancer Colorectal cancer Stroke Social History Smoking Status: Never smoker Tobacco Type: Declines Age Started Using Tobacco: 16; Age Quit Using Tobacco: 17; packs per day: 0.5; Second Hand Exposure: No; Do You Dip or Chew Tobacco: No; Hx Alcohol Use: No Hx Substance Use: No Preferred Language: Amharic Communication Ability: Effective Visual Impairment: No Limitations Hearing Ability: Normal Grinder Hand Required: No Beliefs That Will Affect Care: None marital status: Current Living Situation: Homeless and Other Current Living Situation Comment: Homeless/ Day to day residential current occupational status: unemployed How many Children do You have: 2 Feels Safe at Home: Yes Childhood Exposure to Second-Hand Smoke: No Diet: regular caffeine: No during the past year weight has: increased > 10 lbs Dental Care, Regularly: No Physical Activity Frequency: Daily Seatbelt Use: always Sunscreen Use: No Assistive Devices: None Review of Systems Review of Systems: All systems reviewed & are unremarkable except as noted in HPI & below Physical Exam Constitutional: WD/WN, vitals as above Respiratory: normal respiratory effort, lungs clear to auscultation Cardiovascular: Rate/Rhythm: regular rate and regular rhythm Gastrointestinal (Abdomen): mild diffuse tenderness to palpation, no guarding, soft, normal bowel sounds. Psychiatric: Orientation: alert and oriented x 3 Results & Data Vital Signs (Past 12 Hours) Vital Signs Temp Pulse Pulse Resp BP BP Pulse Ox 01/14/25 09:27 98.6 F 68 17 120/76 95 01/14/25 07:17 98.2 F 71 18 120/68 94 01/14/25 03:24 98.2 F 65 18 124/49 L 100 01/14/25 03:21 01/14/25 03:08 64 01/14/25 02:42 98.6 F 75 19 109/64 96 01/14/25 02:00 72 20 109/64 96 01/14/25 01:00 98.6 F 74 19 157/95 H 98 01/14/25 00:55 81 01/13/25 23:00 79 16 118/65 93 01/13/25 21:56 70 16 105/57 L 95 O2 Del Method 01/14/25 09:27 01/14/25 07:17 Room Air 01/14/25 03:24 Room Air 01/14/25 03:21 Room Air 01/14/25 03:08 01/14/25 02:42 Room Air 01/14/25 02:00 Room Air 01/14/25 01:00 Room Air 01/14/25 00:55 01/13/25 23:00 Room Air 01/13/25 21:56 Room Air Coding Level of Care Code 59310 IN/OBS CONSULT LVL 4,60M Diagnoses History of gastric ulcer Z87.11 Anemia D64.9 Melena K92.1
[2025-01-14 12:10] LABS: Hematocrit (blood only) 24.1 % (37.0-47.0); Hemoglobin 7.7 g/dL (12.0-16.0)
--- NOTE | 2025-01-14 13:35 | Communication Note ---
Date of Service: January 14, 2025 See H and P UPDATE: Patient consented for blood transfusion. 1 unit of blood cells transfused. Plan to go to GI today for endoscopy. Hemoglobin is stabilized. Clinically she has been stable. No significant new or different symptoms. Assessment & Plan (1) Acute upper GI bleed: (2) History of gastric ulcer: (3) Status post laparoscopic cholecystectomy: (4) Anemia: Plan The patient is a 64-year-old female with a past medical history of gastric ulcer, anemia, abdominal wall seroma, acute duodenitis, chronic venous insufficiency, sensorineural hearing loss, unspecified psychosis, nicotine dependence, alcohol abuse, diabetes, and anxiety and depression. She underwent a cholecystectomy and hernia repair 01/01/2025. She presents to the emergency department with complaint of abdominal pain, abdominal distention, nausea, shortness of breath over the past few days. She also reports dark stools, similar to prior episode of bleeding from gastric ulcer. She underwent an EGD on 08/10/2024, which showed normal esophagus, nonbleeding gastric ulcers with no stigmata of bleeding, erosive gastropathy with no bleeding and no stigmata of recent bleeding, the examined duodenum was normal. Initial hemoglobin on admission was 8.9, with her normal range of 10.4-11.0. ED was told to start miguel toprazole 80 mg IV, and she will be [facility] for further evaluation and treatment. Of note, she denies actual vomiting, but reports that she is throwing up into her mouth. #Acute upper GI bleed/history of gastric ulcers/history of portal gastropathy- NPO EGD performed on 08/10/2024 notes nonbleeding gastric ulcers and nonbleeding po rtal gastropathy CT of abdomen pelvis notes postop seroma. Duodenal bulb had a thickened wall. Advised pantoprazole 80 mg IV started in the ED Pantoprazole 40 mg IV twice daily H&H every 4 hours Ceftriaxone 2 g IV daily CBC with differential, renal function panel magnesium every morning Acetaminophen 1 g IV every 8 hours as needed for mild pain or fever Zofran 4 mg IV every 6 hours as needed plan for endoscopy today as above #Symptomatic anemia- Hemoglobin was 8.9 upon admission, with base range 10.4-11.0 Hemoglobin 4 hours after first decreased to 7.5. Blood pressure and heart rate have been maintained. Type and screen has been performed #Status post cholecystectomy/hernia repair- Abdominal wall seroma noted stable #Alcohol Abuse -AWSS Scree - monitor for wdx, asymptomatic at this time
[2025-01-14] MEDS: SODIUM CHLORIDE 0.9% 500 ML IV SCH (14:17)
--- NOTE | 2025-01-14 15:18 | GI REPORT ---
[facility] Patient: ARCHIE WINKLER : 1960 Sex at : Female Age: 64 Years Procedure: Upper GI endoscopy Date: 01/14/2025 Attending Physician: Errol Mccullough MD Referring MD: Indications: - Melena - Acute post hemorrhagic anemia Medications: - Monitored Anesthesia Care Complications: - No immediate complications. Estimated Blood Loss: - Estimated blood loss: None. Procedure: - Prior to the procedure, a History and Physical was performed, and patient medications and allergies were reviewed. The patient's tolerance of previous anesthesia was also reviewed. The risks and benefits of the procedure and the sedation options and risks were discussed with the patient. All questions were answered, and informed consent was obtained. Prior Anticoagulants: The patient has taken no anticoagulant or antiplatelet agents. ASA Grade Assessment: III - A patient with severe systemic disease. After reviewing the risks and benefits, the patient was deemed in satisfactory condition to undergo the procedure. - The egd scope was introduced through the mouth and advanced to the third part of the duodenum. - The upper GI endoscopy was accomplished without difficulty. - The patient tolerated the procedure well. Findings: - LA Grade D (one or more mucosal breaks involving at least 75% of esophageal circumference) esophagitis with no bleeding was found at the gastroesophageal junction (on retroflexion). - Ulcerations noted at GE junction that were clean-based - A small hiatal hernia was present. - Patchy moderate inflammation characterized by erythema was found in the gastric antrum. - One oozing cratered gastric ulcer with a visible vessel was found in the gastric antrum. The lesion was 15 mm in largest dimension. Coagulation for hemostasis using argon plasma was successful. To prevent bleeding post-intervention, two hemostatic clips were successfully placed. Clip tooling inspector: [employer]. There was no bleeding during, or at the end, of the procedure. - The examined duodenum was normal. Impression: - LA Grade D reflux esophagitis with no bleeding. - Ulcerations noted at GE junction that were clean-based - Small hiatal hernia. - Acute gastritis, characterized by erythema. - Oozing gastric ulcer with a visible vessel. Treated with argon plasma coagulation (APC). Clips were placed. Clip tooling inspector: [employer]. - Normal examined duodenum. - No specimens collected. Recommendation: - Discharge patient to home (ambulatory). - Resume previous diet. - Continue present medications. - Await pathology results. - Return to primary care physician as previously scheduled. - Patient has a contact number available for emergencies. The signs and symptoms of potential delayed complications were discussed with the patient. Return to normal activities tomorrow. Written discharge instructions were provided to the patient. - Keep patient n.p.o. today and start the patient on a PPI drip. The ulcer is cauterized but it is a high risk lesion and will need to watch her. Keep hemoglobin above 8 and CBC twice daily to 3 times daily Procedure Code(s): - 84893, Esophagogastroduodenoscopy, flexible, transoral; with control of bleeding, any method Diagnosis Code(s): - K92.1, Melena (includes Hematochezia) - D62, Acute posthemorrhagic anemia - K21.00, Gastro-esophageal reflux disease with esophagitis, without bleeding - K44.9, Diaphragmatic hernia without obstruction or gangrene - K25.4, Chronic or unspecified gastric ulcer with hemorrhage CPT(R) - 2023 copyright [employer]. All Rights Reserved. The CPT codes, CCI edits and ICD codes generated are intended as suggestions and were generated based on input data. These codes are preliminary and upon comedian review may be revised to meet current compliance and payer requirements. The provider is responsible for the final determination of appropriate codes, and modifiers. Errol Mccullough MD This document has been electronically signed. Note Initiated:01/14/2025 Note Completed:01/14/2025 3:17 PM \\[email or web address]\Results\[email or web address]\[id number]
--- NOTE | 2025-01-14 15:20 | Anesthesiology Progress Note ---
Date of Service January 14, 2025 Anesthesia Post Procedure Vital Signs Vital Signs: Temp Pulse Pulse Resp BP BP Pulse Ox 01/14/25 15:10 64 18 106/46 L 96 01/14/25 14:00 36.7 C 66 16 134/74 97 01/14/25 12:09 36.8 C 68 18 116/65 98 01/14/25 11:30 36.8 C 68 18 116/65 98 01/14/25 10:30 36.8 C 71 18 122/79 95 01/14/25 10:00 36.9 C 72 18 118/82 95 01/14/25 09:45 37 C 68 18 120/76 95 01/14/25 09:27 37 C 68 17 120/76 95 01/14/25 08:00 87 01/14/25 07:17 36.8 C 71 18 120/68 94 01/14/25 03:24 36.8 C 65 18 124/49 L 100 01/14/25 03:21 01/14/25 03:08 64 01/14/25 02:42 37 C 75 19 109/64 96 01/14/25 02:00 72 20 109/64 96 01/14/25 01:00 37 C 74 19 157/95 H 98 01/14/25 00:55 81 01/13/25 23:00 79 16 118/65 93 01/13/25 21:56 70 16 105/57 L 95 01/13/25 21:00 72 16 105/57 L 96 01/13/25 19:25 98 01/13/25 17:50 36.4 C L 84 20 122/79 97 O2 Del Method 01/14/25 15:10 Room Air 01/14/25 14:00 Room Air 01/14/25 12:09 01/14/25 11:30 01/14/25 10:30 01/14/25 10:00 01/14/25 09:45 01/14/25 09:27 01/14/25 08:00 01/14/25 07:17 Room Air 01/14/25 03:24 Room Air 01/14/25 03:21 Room Air 01/14/25 03:08 01/14/25 02:42 Room Air 01/14/25 02:00 Room Air 01/14/25 01:00 Room Air 01/14/25 00:55 01/13/25 23:00 Room Air 01/13/25 21:56 Room Air 01/13/25 21:00 Room Air 01/13/25 19:25 Room Air 01/13/25 17:50 Room Air Pain Intensity Abdomen: Pain Intensity: 7 Transfer of Care Handoff Completed per policy Notes Mental Status: alert / awake / arousable and participated in evaluation Patient Amnestic to Procedure: Yes Nausea / Vomiting: adequately controlled Pain: adequately controlled Airway Patency, RR, SpO2: stable & adequate BP & HR: stable & adequate Hydration State: stable & adequate Anesthetic Complications: no major complications apparent
--- NOTE | 2025-01-14 15:27 | History & Physical Bridge Note ---
Date of Service January 14, 2025 History & Physical Bridge Note I have examined the patient, reviewed the History & Physical and in the interval since the performance of the History & Physical I have noted the following changes of clinical significance: no changes noted. EGD done with hiatal hernia, esophagitis with esophageal ulcers, gastritis with a bleeding gastric ulcer in the antrum. The ulcer was 15 mm cratered with a visible vessel and it it was oozing. Using APC, the base of the ulcer was cauterized. 2 clips were deployed over the area. The ulcer could not be closed it was as it was quite large. It was however partially closed. Suggestions: 1 ice chips only and keep patient n.p.o. today 2. CBC twice daily to 3 times daily 3. transfuse to keep hemoglobin greater than 8. 4. PPI drip 5. check serum gastrin levels as she denies any NSAIDs and has been on PPI and Carafate at home and despite all this got a visible vessel ulcer. Check H. pylori stool antigen. Sadia
[2025-01-14] MEDS: PROPOFOL IV EMULSION 10 MG/ML 20 ML VIAL IV ONE ×2 (16:47)
[2025-01-14] MEDS: LIDOCAINE 2% 2 ML VIAL/AMP(20MG/ML) INFIL ONE (16:47)
[2025-01-14 16:55] LABS: Hematocrit (blood only) 27.4 % (37.0-47.0); Hemoglobin 8.8 g/dL (12.0-16.0)
[2025-01-14] MEDS: D5W AND NSS 1,000 ML IV SCH (20:15)
[2025-01-14] MEDS ORDERED: PROCHLORPERAZINE 2 ML IV ONE (22:13)
[2025-01-14] MEDS: PROCHLORPERAZINE 10 MG in SYRINGE 8 ML IV ONE (22:36)
[2025-01-14] MEDS: MAGNESIUM SULFATE / D5W 1 GM/100 ML BAG IV SCH (22:36)
[2025-01-15] MEDS ORDERED: Nursing to Pharmacy Communication SCH (07:45)
[2025-01-15] MEDS: cefTRIAXone SODIUM 2,000 MG/50 ML BAG IV SCH ×2 (08:40→09:02)
[2025-01-15 08:46] LABS: Hematocrit (blood only) 24.7 % (37.0-47.0); Hemoglobin 7.9 g/dL (12.0-16.0); Immature Granulocytes # (auto) 0.06 K/uL (0.01-0.20); Immature Granulocytes % (auto) 0.8 %; Mean Corpuscular Hemoglobin 25.2 pg (25.0-34.0); Mean Corpuscular Volume 78.9 fL (80.0-100.0); Platelet Count 209 K/uL (130-400); RDW Standard Deviation 60.8 fL (36.4-46.3); Red Blood Count 3.13 M/uL (4.20-5.40); White Blood Count 7.10 K/ul (4.8-10.8)
[2025-01-15] MEDS: D5W AND NSS 1,000 ML IV SCH (09:02)
[2025-01-15 09:06] LABS: Polychromasia 1+; Stomatocytes 1+
[2025-01-15 09:10] LABS: Albumin Level 3.3 gm/dl (3.4-5.0); Anion Gap 6.0 (3-11); Blood Urea Nitrogen 16.0 mg/dl (6-23); Calcium 7.5 mg/dl (8.6-10.3); Carbon Dioxide 25.0 mmol/L (21-32); Chloride 109.0 mmol/L (98-107); Creatinine Clr Calc Pharmacy 116.8 ml/min; Glucose 84.0 mg/dl (70-99(Fasting)); Magnesium 2.0 mg/dl (1.7-2.4); Potassium 3.5 mmol/L (3.5-5.1); Sodium 140.0 mmol/L (136-145)
--- NOTE | 2025-01-15 09:41 | Gastroenterology Progress Note ---
Date of Service January 15, 2025 Assessment & Plan (1) Anemia: (2) History of gastric ulcer: (3) Esophagitis: Plan - okay to advance diet to clears. - Follow cbc 2-3x daily and transfuse to keep hemoglobin greater than 8. - recommend a PPI drip - await gastrin and h pylori results. - she will need a repeat EGD in 8 weeks to reassess. Admission and Anticipated Discharge Date Admission Date: January 14, 2025 Supervising Physician Co-Signing Physician Notes I personally saw and examined the patient. I have reviewed the chart and agree with the documentation provided by the NAIL EXPERT including discussion about the assessment, treatment and plan. Briefly, doing better except for nausea and a severe headache. I told her to go slowly with liquids. She had a visible vessel ulcer in the gastric antrum with some blood. We were able to cauterize and clip. It is unclear to me as to why she has recurrent ulceration especially in the setting of PPI that she faithfully takes and no NSAIDs and Carafate daily. We will check a serum gastrin and an H. pylori stool antigen. She will absolutely need a reassessment of her stomach in 6 to 8 weeks via EGD to confirm the ulcer is healing and is not malignant. Supportive care for now continue PPI drip start clears. Subjective Patient tells me that she is having a headache and nausea today. no emesis. She reports stomach pain that is consistent with what she came in with. 01/15/25 wbc 7.1, hgb 7.9, hct 24.7, plts 209, Na 140, K 3.5, BUN 16, Cr 0.58. Gastrin Pending. H pylori stool antigen ordered but not collected yet. EGD 01/14/25 LA-D esophagitis, ulcerations noted at GE junction that were clean based, small hiatal hernia, acute gastritis, oozing gastric ulcer with visible vessel treated with APC and clipped. normal examined duodenum. Review of Systems Review of Systems: All systems reviewed & are unremarkable except as noted in HPI & below Physical Exam Constitutional: WD/WN, vitals as above Respiratory: normal respiratory effort, lungs clear to auscultation Cardiovascular: Rate/Rhythm: regular rate and regular rhythm Gastrointestinal (Abdomen): tender over RUQ, no guarding, soft, normal bowel sounds. Psychiatric: Orientation: alert and oriented x 3 Results & Data Results & Data Vital Signs (Past 12 Hours) Vital Signs Temp Pulse Pulse Resp BP Pulse Ox O2 Del Method 01/15/25 08:14 98.2 F 67 18 127/79 93 Room Air 01/15/25 03:04 97.9 F 18 107/66 67 L Room Air 01/14/25 23:20 97.7 F 72 18 109/62 95 Room Air 01/14/25 22:03 68 Coding Level of Care Code 35620 SUB INP/OBS CARE 2/35MIN Diagnoses Anemia D64.9 History of gastric ulcer Z87.11 Esophagitis K20.90
[2025-01-15] MEDS ORDERED: PANTOPRAZOLE BOLUS/DRIP IV STA (12:23)
--- NOTE | 2025-01-15 12:35 | Hospitalist Progress Note ---
Date of Service January 15, 2025 Assessment & Plan (1) Acute upper GI bleed: (2) History of gastric ulcer: (3) Status post laparoscopic cholecystectomy: (4) Anemia: Plan The patient is a 64-year-old female with a past medical history of gastric ulcer, anemia, abdominal wall seroma, acute duodenitis, chronic venous insufficiency, sensorineural hearing loss, unspecified psychosis, nicotine dependence, alcohol abuse, diabetes, and anxiety and depression. She underwent a cholecystectomy and hernia repair 01/01/2025. She presents to the emergency department with complaint of abdominal pain, abdominal distention, nausea, shortness of breath over the past few days. She also reports dark stools, similar to prior episode of bleeding from gastric ulcer. She underwent an EGD on 08/10/2024, which showed normal esophagus, nonbleeding gastric ulcers with no stigmata of bleeding, erosive gastropathy with no bleeding and no stigmata of recent bleeding, the examined duodenum was normal. Initial hemoglobin on admission was 8.9, with her normal range of 10.4-11.0. ED was told to start pantoprazole 80 mg IV, and she will be admitted to the [facility] service for further evaluation and treatment. Of note, she denies actual vomiting, but reports that she is throwing up into her mouth. #Acute upper GI bleed/history of gastric ulcers/history of portal gastropathy- #Symptomatic anemia -See GI notes -H&H q8h -Transfuse to maintain above 8. -protonix gtt -advance clears #GOLD -New, check head CT, refusing tylenol, encouraged use, morphine as needed #Status post cholecystectomy/hernia repair- Abdominal wall seroma noted stable #Alcohol Abuse -AWSS Scree - monitor for wdx, asymptomatic at this time Admission and Anticipated Discharge Date Admission Date: January 14, 2025 Subjective Patient doing okay this morning. Complaining of a left-sided headache that is more frequent but new for patient. Least during this hospital stay. Mild abdominal pain. Interested in eating more clears she has been getting. Otherwise no new or different symptoms. Refused blood draw this morning as it was too early in the morning but was able to complete that morning. Physical Exam Physical Exam: The patient is awake, alert and oriented 3, well developed and well nourished, normocephalic and atraumatic, lying in bed and in no acute distress. HEENT--PERRL, EOMI, mucous membranes and oropharynx dry. Neck--supple. No JVD. No bruits. Thyroid normal, trachea midline, no adenopathy. Heart--normal S1 and S2. No murmurs, rubs or gallops. Lungs--clear bilaterally, no respiratory distress, no accessory muscle use. Abdomen--normal bowel sounds and soft. Significant epigastric tenderness with palpation. Nondistended Extremities-- No edema. Dermatologic--normal skin turgor, normal color, no abnormal lymph nodes, no rash. Neurologic--cranial nerves II through XII grossly intact. Rheumatologic--normal range of motion. Psychiatric--normal affect. Results & Data Results & Data Vital Signs (Past 12 Hours) Vital Signs Temp Pulse Resp BP Pulse Ox O2 Del Method 01/15/25 11:17 36.7 C 59 L 19 144/86 H 98 Room Air 01/15/25 09:32 Room Air 01/15/25 08:14 36.8 C 67 18 127/79 93 Room Air 01/15/25 03:04 36.6 C 18 107/66 67 L Room Air Laboratory Results 01/15/25 01/14/25 01/14/25 08:16 16:24 16:19 WBC 7.10 RBC 3.13 L Hgb 7.9 L 8.8 L Hct 24.7 L 27.4 L MCV 78.9 L MCH 25.2 MCHC 32.0 RDW Std Deviation 60.8 H RDW Coeff of [place] 21.3 H Plt Count 209 MPV 9.4 Immature Gran % (Auto) 0.8 Neut % (Auto) 71.6 Lymph % (Auto) 18.0 [place] % (Auto) 5.4 Eos % (Auto) 3.5 Baso % (Auto) 0.7 Neut # (Auto) 5.08 Lymph # (Auto) 1.28 [place] # (Auto) 0.38 Eos # (Auto) 0.25 Baso # (Auto) 0.05 Immature Gran # (Auto) 0.06 Polychromasia 1+ Stomatocytes 1+ Sodium 140 Potassium 3.5 Chloride 109 H Carbon Dioxide 25 Anion Gap 6 BUN 16 D Creatinine 0.58 L Est Cr Clr Drug Dosing 116.8 eGFR 102.25 BUN/Creatinine Ratio 27.6 H Glucose 84 POC Glucose 75 Calcium 7.5 L Phosphorus 3.2 Magnesium 2.0 Albumin 3.3 L PG Care Time/CCT Total # of Minutes Spent Total Time Spent with Patient: Total time spent is greater than 50% in coordination of care (as documented) at patient's floor/unit and/or counseling patient: Coding Level of Care Code 87080 SUB INP/OBS CARE 2/35MIN Diagnoses Acute upper GI bleed K92.2 History of gastric ulcer Z87.11 Status post laparoscopic cholecystectomy Z90.49 Anemia D64.9
[2025-01-15] MEDS: PANTOprazole 40 MG in DEXTROSE 5% MINI-B 100 ML IV SCH (13:15)
--- NOTE | 2025-01-15 14:01 | CT Scan Report ---
CT SCAN OF THE BRAIN WITHOUT IV CONTRAST CLINICAL HISTORY: New onset headache. COMPARISON STUDY: Head CT December 05, 2024. TECHNIQUE: Unenhanced axial CT scan of the brain was performed from the vertex to the skull base. A dose lowering technique was utilized adhering to the principles of ALARA. CT DOSE: 625.8 mGy.cm FINDINGS: Brain parenchyma: No acute intracranial hemorrhage, midline shift or mass effect is present. Guerra-whi te matter differentiation is preserved. There are no extra-axial fluid collections. There are no find ings to suggest acute dural sinus thrombosis or acute territorial infarct. Ventricles, sulci, cisterns: There is no hydrocephalus. The basal cisterns are patent. Calvarium: Unremarkable. Sinuses and mastoids: The visualized paranasal sinuses are clear. The mastoid air cells are well pneu matized. Orbits: The bony orbits are grossly intact. IMPRESSION: No acute intracranial findings. ACT 112: Negative or not required by law. Electronically signed by: Juan Ramon Luo M.D. 01/15/2025 2:00 PM
[2025-01-15 16:20] LABS: Hematocrit (blood only) 27.5 % (37.0-47.0); Hemoglobin 8.6 g/dL (12.0-16.0)
[2025-01-15] MEDS: SUCRALFATE 1 GM/10 ML UDC PO SCH (21:28)
[2025-01-15 22:38] LABS: Hematocrit (blood only) 25.1 % (37.0-47.0); Hemoglobin 7.8 g/dL (12.0-16.0)
[2025-01-16 06:38] LABS: Hematocrit (blood only) 25.3 % (37.0-47.0); Hemoglobin 8.0 g/dL (12.0-16.0); Immature Granulocytes # (auto) 0.05 K/uL (0.01-0.20); Immature Granulocytes % (auto) 0.8 %; Mean Corpuscular Hemoglobin 25.5 pg (25.0-34.0); Mean Corpuscular Volume 80.6 fL (80.0-100.0); Platelet Count 219 K/uL (130-400); RDW Standard Deviation 61.4 fL (36.4-46.3); Red Blood Count 3.14 M/uL (4.20-5.40); White Blood Count 6.52 K/ul (4.8-10.8)
[2025-01-16 07:18] LABS: Anisocytosis Present; Polychromasia 1+
[2025-01-16 07:26] LABS: Alanine Aminotransferase 6.0 U/L (7-52); Albumin Globulin Ratio 1.3 (0.9-2); Albumin Level 3.3 gm/dl (3.4-5.0); Alkaline Phosphatase 50.0 U/L (34-104); Anion Gap 5.0 (3-11); Bilirubin,Total 0.3 mg/dl (0.2-1.0); Blood Urea Nitrogen 7.0 mg/dl (6-23); Calcium 7.6 mg/dl (8.6-10.3); Carbon Dioxide 27.0 mmol/L (21-32); Chloride 109.0 mmol/L (98-107); Creatinine Clr Calc Pharmacy 114.1 ml/min; Globulin 2.5 gm/dl (2.5-4.0); Glucose 116.0 mg/dl (70-99(Fasting)); Magnesium 2.0 mg/dl (1.7-2.4); Potassium 3.5 mmol/L (3.5-5.1); Sodium 141.0 mmol/L (136-145); Total Protein 5.8 gm/dl (6.0-8.3)
--- NOTE | 2025-01-16 10:04 | Gastroenterology Progress Note ---
Date of Service January 16, 2025 Assessment & Plan (1) Esophagitis: (2) Anemia: (3) Gastric ulcer: Plan - follow hgb/hct. transfuse as needed. - Continue with protonix. - continue with carafate. - await gastrin and h pylori results. - she will need a repeat EGD in 8 weeks to reassess. Admission and Anticipated Discharge Date Admission Date: January 14, 2025 Supervising Physician Co-Signing Physician Notes I personally saw and examined the patient. I have reviewed the chart and agree with the documentation provided by the WINDOW MACHINE OPERATOR including discussion about the assessment, treatment and plan. Subjective Patient has been tolerating a clear liquid diet. she feels her abdominal pain has improved since addition of carafate. Biggest concern is ongoing headaches and dizziness. Gastrin Pending. h pylori pending. 01/16/25 hgb 8 Review of Systems Review of Systems: All systems reviewed & are unremarkable except as noted in HPI & below Physical Exam Constitutional: WD/WN, vitals as above Respiratory: normal respiratory effort, lungs clear to auscultation Cardiovascular: Rate/Rhythm: regular rate and regular rhythm Gastrointestinal (Abdomen): mild ruq tenderness, no guarding, soft, normal bowel sounds. Psychiatric: Orientation: alert and oriented x 3 Results & Data Results & Data Vital Signs (Past 12 Hours) Vital Signs Temp Pulse Resp BP Pulse Ox O2 Del Method 01/16/25 07:17 98.2 F 61 17 143/84 H 94 Room Air 01/16/25 02:38 98.6 F 64 18 106/62 94 Room Air 01/15/25 22:49 97.7 F 64 16 125/74 93 Room Air Coding Level of Care Code 14372 SUB INP/OBS CARE 03/02MIN Diagnoses Esophagitis K20.90 Anemia D64.9 Gastric ulcer K25.9
--- NOTE | 2025-01-16 12:05 | Hospitalist Progress Note ---
Date of Service January 16, 2025 Assessment & Plan (1) Acute upper GI bleed: (2) History of gastric ulcer: (3) Status post laparoscopic cholecystectomy: (4) Anemia: Plan The patient is a 64-year-old female with a past medical history of gastric ulcer, anemia, abdominal wall seroma, acute duodenitis, chronic venous insufficiency, sensorineural hearing loss, unspecified psychosis, nicotine dependence, alcohol abuse, diabetes, and anxiety and depression. She underwent a cholecystectomy and hernia repair 01/01/2025. She presents to the emergency department with complaint of abdominal pain, abdominal distention, nausea, shortness of breath over the past few days. She also reports dark stools, similar to prior episode of bleeding from gastric ulcer. She underwent an EGD on 08/10/2024, which showed normal esophagus, nonbleeding gastric ulcers with no stigmata of bleeding, erosive gastropathy with no bleeding and no stigmata of recent bleeding, the examined duodenum was normal. Initial hemoglobin on admission was 8.9, with her normal range of 10.4-11.0. ED was told to start pantoprazole 80 mg IV, [facility]. Of note, she denies actual vomiting, but reports that she is throwing up into her mouth. #Acute upper GI bleed/history of gastric ulcers/history of portal gastropathy- #Symptomatic anemia -See GI notes -H&H q8h -Transfuse to maintain above 8. -protonix gtt -slow but positive return of bowel function, no indication for transfusion at this time #GOLD -New, check head CT, refusing tylenol, encouraged use, morphine as needed -recurrent but improving, DC morphine, add percocet. #Dehydration -limited PO intake, minimal to mild dehydration, nursing to check with orthostatic VS, may require 500cc NS bolus #Status post cholecystectomy/hernia repair- Abdominal wall seroma noted stable #Alcohol Abuse -AWSS Scree - monitor for wdx, asymptomatic at this time Admission and Anticipated Discharge Date Admission Date: January 14, 2025 Subjective Mild but recurrent headache this morning. The Percocet yesterday helped much better than the morphine has been doing. No new or changing character to the headaches. Minimal but persistent abdominal pain. Small amount of oral intake. Has not been up and about as of yet. We discussed her blood counts versus level dehydration given limited intake. Will have orthostatic vital signs checked. Otherwise no new events or concerns Physical Exam Physical Exam: The patient is awake, alert and oriented 3, well developed and well nourished, normocephalic and atraumatic, lying in bed and in no acute distress. HEENT--PERRL, EOMI, mucous membranes and oropharynx dry. Neck--supple. No JVD. No bruits. Thyroid normal, trachea midline, no adenopathy. Heart--normal S1 and S2. No murmurs, rubs or gallops. Lungs--clear bilaterally, no respiratory distress, no accessory muscle use. Abdomen--normal bowel sounds and soft. Significant epigastric tenderness with palpation. Nondistended Extremities-- No edema. Dermatologic--normal skin turgor, normal color, no abnormal lymph nodes, no rash. Neurologic--cranial nerves II through XII grossly intact. Rheumatologic--normal range of motion. Psychiatric--normal affect. Results & Data Results & Data Vital Signs (Past 12 Hours) Vital Signs Temp Pulse Resp BP Pulse Ox O2 Del Method 01/16/25 09:58 36.6 C 17 97 Room Air 01/16/25 08:00 Room Air 01/16/25 07:17 36.8 C 61 17 143/84 H 94 Room Air 01/16/25 02:38 37.0 C 64 18 106/62 94 Room Air Laboratory Results 01/16/25 01/15/25 01/15/25 06:15 22:24 16:06 WBC 6.52 RBC 3.14 L Hgb 8.0 L 7.8 L 8.6 L Hct 25.3 L 25.1 L 27.5 L MCV 80.6 MCH 25.5 MCHC 31.6 L RDW Std Deviation 61.4 H RDW Coeff of [place] 21.5 H Plt Count 219 MPV 9.4 Immature Gran % (Auto) 0.8 Neut % (Auto) 64.7 Lymph % (Auto) 22.9 [place] % (Auto) 7.8 Eos % (Auto) 2.9 Baso % (Auto) 0.9 Neut # (Auto) 4.22 Lymph # (Auto) 1.49 [place] # (Auto) 0.51 Eos # (Auto) 0.19 Baso # (Auto) 0.06 Immature Gran # (Auto) 0.05 Polychromasia 1+ Anisocytosis Present Sodium 141 Potassium 3.5 Chloride 109 H Carbon Dioxide 27 Anion Gap 5 BUN 7 Creatinine 0.59 L Est Cr Clr Drug Dosing 114.1 eGFR 101.83 BUN/Creatinine Ratio 11.9 Glucose 116 H Calcium 7.6 L Phosphorus 2.9 Magnesium 2.0 Total Bilirubin 0.3 AST 14 ALT 6 L Alkaline Phosphatase 50 Total Protein 5.8 L Albumin 3.3 L Globulin 2.5 Albumin/Globulin Ratio 1.3 PG Care Time/CCT Total # of Minutes Spent Total Time Spent with Patient: Total time spent is greater than 50% in coordination of care (as documented) at patient's floor/unit and/or counseling patient: Coding Level of Care Code 26541 SUB INP/OBS CARE 2/35MIN Diagnoses Acute upper GI bleed K92.2 History of gastric ulcer Z87.11 Status post laparoscopic cholecystectomy Z90.49 Anemia D64.9
[2025-01-16] MEDS: ONDANSETRON 4 MG OD TAB PO STA (19:40)
[2025-01-17] MEDS: ACETAMINOPHEN 500 MG TAB PO PRN (06:24)
[2025-01-17 07:14] LABS: Alanine Aminotransferase 7 U/L (7-52); Albumin Globulin Ratio 1.3 (0.9-2); Albumin Level 3.3 gm/dl (3.4-5.0); Alkaline Phosphatase 50 U/L (34-104); Anion Gap 8 (3-11); Bilirubin,Total 0.2 mg/dl (0.2-1.0); Blood Urea Nitrogen 9 mg/dl (6-23); Calcium 7.9 mg/dl (8.6-10.3); Carbon Dioxide 26 mmol/L (21-32); Chloride 106 mmol/L (98-107); Creatinine Clr Calc Pharmacy 112.2 ml/min; Globulin 2.5 gm/dl (2.5-4.0); Glucose 100 mg/dl (70-99(Fasting)); Magnesium 1.8 mg/dl (1.7-2.4); Potassium 3.6 mmol/L (3.5-5.1); Sodium 140 mmol/L (136-145); Total Protein 5.8 gm/dl (6.0-8.3)
[2025-01-17 08:28] LABS: Hematocrit (blood only) 25.3 % (37.0-47.0); Hemoglobin 7.8 g/dL (12.0-16.0); Immature Granulocytes # (auto) 0.04 K/uL (0.01-0.20); Immature Granulocytes % (auto) 0.7 %; Mean Corpuscular Hemoglobin 25.3 pg (25.0-34.0); Mean Corpuscular Volume 82.1 fL (80.0-100.0); Platelet Count 213 K/uL (130-400); RDW Standard Deviation 63.3 fL (36.4-46.3); Red Blood Count 3.08 M/uL (4.20-5.40); White Blood Count 6.13 K/ul (4.8-10.8)
[2025-01-17 09:03] LABS: Anisocytosis Present; Hypochromasia Present; Polychromasia 2+
--- NOTE | 2025-01-17 09:53 | Gastroenterology Progress Note ---
Date of Service January 17, 2025 Assessment & Plan (1) Esophagitis: (2) Anemia: Plan - follow hgb/hct. transfuse as needed. - Continue with protonix. - continue with carafate. - await gastrin and h pylori results. - she will need a repeat EGD in 6-8 weeks to reassess. Admission and Anticipated Discharge Date Admission Date: January 14, 2025 Supervising Physician Co-Signing Physician Notes I personally saw and examined the patient. I have reviewed the chart and agree with the documentation provided by the HOME VISIT FIELD CARE MANAGER including discussion about the assessment, treatment and plan. Briefly, H. pylori and gastrin are pending she will need follow-up with GI in 6 to 8 weeks and repeat the EGD to confirm gastric ulcer healing keep her on PPI twice daily for 14 days and then once daily. She is going to insist on having her Carafate and that is fine by me. Advance diet to soft solids GI will sign off Subjective Patient still with ongoing issues with headaches. Still having some abdominal discomfort but better since starting carafate. tolerating diet. no bowel movements, but is passing gas. 01/17/25 WBC 6.13, hgb 7.8, hct 25.3, plts 213, Na 140, K 3.6, BUN 9, Cr 0.6 Gastrin Pending. H pylori not collected as no stool yet. Review of Systems Review of Systems: All systems reviewed & are unremarkable except as noted in HPI & below Physical Exam Constitutional: WD/WN, vitals as above Respiratory: normal respiratory effort, lungs clear to auscultation Cardiovascular: Rate/Rhythm: regular rate and regular rhythm Gastrointestinal (Abdomen): RUQ tenderness to palpation, no guarding, soft, normal bowel sounds. Psychiatric: Orientation: alert and oriented x 3 Results & Data Results & Data Vital Signs (Past 12 Hours) Vital Signs Temp Pulse Pulse Resp BP Pulse Ox O2 Del Method 01/17/25 08:07 98.2 F 60 18 127/74 98 Room Air 01/17/25 05:31 60 01/17/25 02:07 97.7 F 67 18 122/67 96 Room Air 01/16/25 22:27 98.1 F 63 17 121/74 95 Room Air Coding Level of Care Code 68125 SUB INP/OBS CARE 03/02MIN Diagnoses Esophagitis K20.90 Anemia D64.9
[2025-01-17 17:05] LABS: Hematocrit (blood only) 27.5 % (37.0-47.0); Hemoglobin 8.7 g/dL (12.0-16.0)
--- NOTE | 2025-01-17 17:38 | Hospitalist Progress Note ---
Date of Service January 17, 2025 Assessment & Plan (1) Acute upper GI bleed: (2) History of gastric ulcer: (3) Status post laparoscopic cholecystectomy: (4) Anemia: Plan The patient is a 64-year-old female with a past medical history of gastric ulcer, anemia, abdominal wall seroma, acute duodenitis, chronic venous insufficiency, sensorineural hearing loss, unspecified psychosis, nicotine dependence, alcohol abuse, diabetes, and anxiety and depression. She underwent a cholecystectomy and hernia repair 01/01/2025. She presents to the emergency department with complaint of abdominal pain, abdominal distention, nausea, shortness of breath over the past few days. She also reports dark stools, similar to prior episode of bleeding from gastric ulcer. She underwent an EGD on 08/10/2024, which showed normal esophagus, nonbleeding gastric ulcers with no stigmata of bleeding, erosive gastropathy with no bleeding and no stigmata of recent bleeding, the examined duodenum was normal. Initial hemoglobin on admission was 8.9, with her normal range of 10.4-11.0. ED was told to start pantoprazole 80 mg IV, and [facility]. Of note, she denies actual vomiting, but reports that she is throwing up into her mouth. #Acute upper GI bleed/history of gastric ulcers/history of portal gastropathy- #Symptomatic anemia -See GI notes -H&H q8h -Transfuse to maintain above 8. -protonix gtt - Repeat CBC this afternoon hemoglobin 8.7. Stable, single episode of dark/melanotic stool. Consistent with prior ulcerations that have been treated during EGD #GOLD -New, check head CT, refusing tylenol, preferentially use for narcotic based medications, refusing Tylenol and Ultram in favor of oxycodone - Continue IV fluids, supportive cares, Tylenol high-dose as needed. #Dehydration -limited PO intake, minimal to mild dehydration, nursing to check with orthostatic VS, may require 500cc NS bolus - Resolved, at baseline #Status post cholecystectomy/hernia repair- Abdominal wall seroma noted stable #Alcohol Abuse -AWSS Screen - monitor for wdx, asymptomatic at this time Admission and Anticipated Discharge Date Admission Date: January 14, 2025 Subjective Patient very inconsistent and reports between nursing and myself. States she is not doing very well overall. Headache responds only to the oxycodone. She refuses Tylenol frequently. States that she has used this in the outpatient setting previously. No change or worsening of abdominal pain or discomfort. 1 episode of melanotic type stools this afternoon per nursing. Repeat hemoglobin unremarkable. This is relayed to the patient. Advancing diet slowly. She has made several reports to nursing that she cannot go back to her [facility] because she is unable to complete the tasks required and had requested that we give a note to him. Friend her from needing to do any walking cleaning, chores and to be left alone in private. Physical Exam Physical Exam: The patient is awake, alert and oriented 3, well developed and well nourished, normocephalic and atraumatic, lying in bed and in no acute distress. HEENT--PERRL, EOMI, mucous membranes and oropharynx dry. Neck--supple. No JVD. No bruits. Thyroid normal, trachea midline, no adenopathy. Heart--normal S1 and S2. No murmurs, rubs or gallops. Lungs--clear bilaterally, no respiratory distress, no accessory muscle use. Abdomen--normal bowel sounds and soft. Significant epigastric tenderness with palpation. Nondistended Extremities-- No edema. Dermatologic--normal skin turgor, normal color, no abnormal lymph nodes, no rash. Neurologic--cranial nerves II through XII grossly intact. Rheumatologic--normal range of motion. Psychiatric--normal affect. Results & Data Results & Data Vital Signs (Past 12 Hours) Vital Signs Temp Pulse Pulse Resp BP BP Pulse Ox 01/17/25 16:28 36.9 C 73 137/71 97 01/17/25 13:00 84 01/17/25 11:18 36.7 C 59 L 18 122/65 97 01/17/25 10:08 01/17/25 08:07 36.8 C 60 18 127/74 98 O2 Del Method 01/17/25 16:28 Room Air 01/17/25 13:00 01/17/25 11:18 Room Air 01/17/25 10:08 Room Air 01/17/25 08:07 Room Air Laboratory Results 01/17/25 01/17/25 01/17/25 16:47 06:07 06:03 WBC 6.13 RBC 3.08 L Hgb 8.7 L 7.8 L Hct 27.5 L 25.3 L MCV 82.1 MCH 25.3 MCHC 30.8 L RDW Std Deviation 63.3 H RDW Coeff of [place] 22.0 H Plt Count 213 MPV 9.9 Immature Gran % (Auto) 0.7 Neut % (Auto) 59.3 Lymph % (Auto) 25.9 [place] % (Auto) 8.2 Eos % (Auto) 4.9 Baso % (Auto) 1.0 Neut # (Auto) 3.64 Lymph # (Auto) 1.59 [place] # (Auto) 0.50 Eos # (Auto) 0.30 Baso # (Auto) 0.06 Immature Gran # (Auto) 0.04 Polychromasia 2+ Hypochromasia Present Anisocytosis Present Sodium 140 Potassium 3.6 Chloride 106 Carbon Dioxide 26 Anion Gap 8 BUN 9 Creatinine 0.60 Est Cr Clr Drug Dosing 112.2 eGFR 101.42 BUN/Creatinine Ratio 15.0 Glucose 100 H Calcium 7.9 L Magnesium 1.8 Total Bilirubin 0.2 AST 13 ALT 7 Alkaline Phosphatase 50 C-Reactive Protein < 0.50 Total Protein 5.8 L Albumin 3.3 L Globulin 2.5 Albumin/Globulin Ratio 1.3 Procalcitonin 0.04 PG Care Time/CCT Total # of Minutes Spent Total Time Spent with Patient: Total time spent is greater than 50% in coordination of care (as documented) at patient's floor/unit and/or counseling patient: Coding Level of Care Code 95034 SUB INP/OBS CARE 2/35MIN Diagnoses Acute upper GI bleed K92.2 History of gastric ulcer Z87.11 Status post laparoscopic cholecystectomy Z90.49 Anemia D64.9
[2025-01-17] MEDS: PROCHLORPERAZINE 5 MG in SYRINGE 4 ML IV ONE (19:55)
[2025-01-18 06:23] LABS: Hematocrit (blood only) 25.3 % (37.0-47.0); Hemoglobin 8.2 g/dL (12.0-16.0); Immature Granulocytes # (auto) 0.03 K/uL (0.01-0.20); Immature Granulocytes % (auto) 0.4 %; Mean Corpuscular Hemoglobin 26.0 pg (25.0-34.0); Mean Corpuscular Volume 80.3 fL (80.0-100.0); Platelet Count 247 K/uL (130-400); RDW Standard Deviation 62.3 fL (36.4-46.3); Red Blood Count 3.15 M/uL (4.20-5.40); White Blood Count 6.73 K/ul (4.8-10.8)
--- NOTE | 2025-01-18 06:51 | Electrocardiogram Report ---
Test Reason : Blood Pressure : */* mmHG Vent. Rate : 71 BPM Atrial Rate : 71 BPM P-R Int : 132 ms QRS Dur : 90 ms QT Int : 448 ms P-R-T Axes : 43 28 37 degrees QTcB Int : 486 ms Normal sinus rhythm Normal ECG When compared with ECG of 05-Dec-2024 17:59, Borderline criteria for Lateral infarct are no longer Present Nonspecific T wave abnormality no longer evident in Lateral leads Confirmed by Joseph Hernandez [id number] on 01/18/2025 6:50:50 AM Referred By: REFERRED SELF Confirmed By: Joseph Hernandez
[2025-01-18 07:18] LABS: Anisocytosis Present; Hypochromasia Present; Microcytosis Present; Polychromasia 1+
[2025-01-18 07:41] LABS: Albumin Level 3.6 gm/dl (3.4-5.0); Anion Gap 8.0 (3-11); Bilirubin,Total 0.3 mg/dl (0.2-1.0); Calcium 8.5 mg/dl (8.6-10.3); Carbon Dioxide 26.0 mmol/L (21-32); Chloride 105.0 mmol/L (98-107); Potassium 3.9 mmol/L (3.5-5.1); Sodium 139.0 mmol/L (136-145)
[2025-01-18 07:47] LABS: Alanine Aminotransferase 6.0 U/L (7-52); Albumin Globulin Ratio 1.4 (0.9-2); Alkaline Phosphatase 60.0 U/L (34-104); Blood Urea Nitrogen 17.0 mg/dl (6-23); Creatinine Clr Calc Pharmacy 105.3 ml/min; Globulin 2.6 gm/dl (2.5-4.0); Glucose 91.0 mg/dl (70-99(Fasting)); Total Protein 6.2 gm/dl (6.0-8.3)
[2025-01-18 08:09] VITALS: RESP 16; TEMP 98.4
[2025-01-18 11:12] VITALS: PULSE 62; O2SAT 98
--- NOTE | 2025-01-18 13:16 | Discharge Summary ---
Discharge Summary Date of Service January 18, 2025 Principal Dx & Hospital Course #1 = Principal Diagnosis (1) Acute upper GI bleed: (2) History of gastric ulcer: (3) Status post laparoscopic cholecystectomy: (4) Anemia: Plan The patient is a 64-year-old female with a past medical history of gastric ulcer, anemia, abdominal wall seroma, acute duodenitis, chronic venous insufficiency, sensorineural hearing loss, unspecified psychosis, nicotine dependence, alcohol abuse, diabetes, and anxiety and depression. She underwent a cholecystectomy and hernia repair 01/01/2025. She presents to the emergency department with complaint of abdominal pain, abdominal distention, nausea, shortness of breath over the past few days. She also reports dark stools, similar to prior episode of bleeding from gastric ulcer. She underwent an EGD on 08/10/2024, which showed normal esophagus, nonbleeding gastric ulcers with no stigmata of bleeding, erosive gastropathy with no bleeding and no stigmata of recent bleeding, the examined duodenum was normal. Initial hemoglobin on admission was 8.9, with her normal range of 10.4-11.0. ED was told to start pantoprazole 80 mg IV, and [facility]. Of note, she denies actual vomiting, but reports that she is throwing up into her mouth. #Acute upper GI bleed/history of gastric ulcers/history of portal gastropathy- #Symptomatic anemia -See GI notes -H&H q8h -Transfuse to maintain above 8. -protonix gtt - hgb this AM 8.2 and stable, no evidence of recurrent bleed. Appropriate to DC to outpatient follow-up, protonix BID for 2 weeks then daily, sucrafate AC and HS for 30 days, repeat endoscopy with GI in 6-8 weeks #GOLD -New, check head CT, refusing tylenol, preferentially use for narcotic based medications, refusing Tylenol and Ultram in favor of oxycodone -intermittent, pt refusing tylenol, oxycodone, intermittend, no evident distress, CT negative, resume prior and supportive cares #Dehydration -limited PO intake, minimal to mild dehydration, nursing to check with orthostatic VS, may require 500cc NS bolus - Resolved, at baseline #Status post cholecystectomy/hernia repair- Abdominal wall seroma noted stable #Alcohol Abuse -AWSS Screen - monitor for wdx, asymptomatic at this time, no intervention required or wdx notes, no ongoing concern. Admission HPI Per Admitting Provider The patient is a 64-year-old female with a past medical history of gastric ulcer, anemia, abdominal wall seroma, acute duodenitis, chronic venous insufficiency, sensorineural hearing loss, unspecified psychosis, nicotine dependence, alcohol abuse, diabetes, and anxiety and depression. She underwent a cholecystectomy and hernia repair 01/01/2025. She presents to the emergency department with complaint of abdominal pain, abdominal distention, nausea, shortness of breath over the past few days. She also reports dark stools, similar to prior episode of bleeding from gastric ulcer. She underwent an EGD on 08/10/2024, which showed normal esophagus, nonbleeding gastric ulcers with no stigmata of bleeding, erosive gastropathy with no bleeding and no stigmata of recent bleeding, the examined duodenum was normal. Initial hemoglobin on admission was 8.9, with her normal range of 10.4-11.0. ED was told to start pantoprazole 80 mg IV, and [facility] Discharge Exam The patient is awake, alert and oriented 3, well developed and well nourished, normocephalic and atraumatic, lying in bed and in no acute distress. HEENT--PERRL, EOMI, mucous membranes moist Neck--supple. No JVD. No bruits. Thyroid normal, trachea midline, no adenopathy. Heart--normal S1 and S2. No murmurs, rubs or gallops. Lungs--clear bilaterally, no respiratory distress, no accessory muscle use. Abdomen--normal bowel sounds and soft. minimal poorly localized epigastric/RUQ tenderness with palpation. Nondistended Extremities-- No edema. Neurologic--No focal deficits, moves all extremities, no gait difficulties Psychiatric--normal affect. Discharge Plan Discharge Items Patient Disposition: Home - Self-Care Reason For Visit: UGI BLEED, NEAR SYNCOPE Discharge Diagnosis: Upper GI Bleed/Gastric Ulcer Condition on Discharge: Good Health Concerns: Take the Protonix twice daily for 2 weeks and then switch to once daily Take the Carafate 4 times per day until seen in follow-up with your primary doctor Follow a bland, easy to digest diet. Discharge paperwork will having some general recommendations. Avoid NSAID type medication such as ibuprofen, Advil, Celebrex,, aspirin or Aleve You will need to be seen by gastroenterology again in 6 to 8 weeks to have a repeat endoscopy If you notice any bleeding per rectum, shortness of breath, dizziness when you stand up. Worsening abdominal pain or new/different symptoms please call or return to emergency department immediately for recheck Activity: Per Instructions section Non-emergency contact: Primary Care Provider and Crew Leader Gluing Call non-emergency contact if: you have any medication questions, your pain is worsening, your pain is unusual for you and you have a fever Follow-up/Referrals: Gadiel Granda, [Primary Care Provider] - Diet: Bariatric Addtl Attending Provider Instructions: Recheck CBC, BMP, longer-term prescription for Protonix sucralfate as needed Facilitate referral to gastroenterology for repeat endoscopy in 6 to 8 weeks Pending Studies at Discharge: Yes Studies:: Endoscopy biopsy Stand-Alone Forms: [facility], Work/School Release, Smoking Cessation Medications and DC Order Prescriptions: New ondansetron 4 mg tablet,disintegrating 4 mg PO Q6H PRN (Reason: nausea and vomiting) Qty: 20 0RF ondansetron HCl (PF) 4 mg/2 mL Solution 4 mg IV Q6H PRN (Reason: nausea and vomiting) Qty: 12 0RF pantoprazole 40 mg tablet,delayed release (DR/EC) 40 mg PO BID 14 Days Qty: 28 0RF sucralfate 1 gram tablet 1 g PO ACHS 28 Days Qty: 28 0RF Continued peg 3350-electrolytes [Golytely] 236-22.74-6.74 -5.86 gram recon soln 240 ml PO Q10M Qty: 4000 0RF Rx Instructions: DID NOT START YET- 01/14/25 Take per split dose instructions ofloxacin 0.3 % drops 5 drp otic (ear) BID 12 Days Qty: 5 1RF Rx Instructions: LEFT EAR cholecalciferol (vitamin D3) 1,250 mcg (50,000 unit) capsule 1,250 mcg PO .weekly Qty: 12 0RF Rx Instructions: MONDAY NIGHT ferrous gluconate 324 mg (38 mg iron) tablet 324 mg PO DAILY Qty: 90 3RF oxycodone 5 mg tablet 5 - 10 mg PO .[id number] PRN (Reason: pain, for initial therapy, max 6 tabs per day) Qty: 15 0RF Rx Instructions: DID NOT START YET- 01/14/25 oxycodone 5 mg tablet 5 mg PO .[id number] PRN (Reason: pain, for ongoing therapy, max 6tabs/day) Qty: 15 0RF Rx Instructions: DID NOT START YET- 01/14/25 All Day Allergy (cetirizine) 10 mg capsule 10 mg PO DAILY PRN (Reason: allergy symptoms) Qty: 14 0RF (DME) Poise Pads Pad See Rx Instructions .Route Qty: 264 6RF Rx Instructions: change 8 times daily sucralfate [Carafate] 100 mg/mL suspension 5 ml PO QID 7 Days Qty: 140 3RF solifenacin 10 mg tablet 10 mg PO QAM acetaminophen [Tylenol Extra Strength] 500 mg Tablet 1,000 mg PO Q6H PRN (Reason: Pain) lisinopril 2.5 mg tablet 2.5 mg PO HS Patient Comments: doesn't always take Rx Instructions: PT HAS HAD MED ON HOLD; IT MAKES PT SLEEPY Held pantoprazole 40 mg tablet,delayed release (DR/EC) 40 mg PO BID Qty: 60 3RF Hold Instructions: Resume on 02/16/25. Do not take Protonix twice daily. famotidine [[employer] [place] [employer] (famotidine)] 20 mg tablet 20 mg PO BID PRN (Reason: GERD) Hold Instructions: Resume on 02/17/25. Do not take regularly while on the Protonix Discharge Orders: Discharge Order (Routine); Ordered 01/18/25 Ordered By: Eugene Mendoza/Other Patient Handouts: Soft [place] Diet Dc, GI Bleeding Ch Admission Data Admit Date/Time: 01/14/25 01:24 Attending Provider: Eugene Ferrer Admit Provider: Manjinder Vizcarra Primary Care Provider: Gadiel Granda Other Providers: Manjinder Vizcarra; Bernard Hernandez Jr Other Interventions: Discharge Summary Assessment (RN) Last Done: 01/14/25 15:39 Hospital Stay Data Consultations 01/14/25 02:13 ED Decision to Admit Stat 01/14/25 03:11 Consult Gastroenterology Routine Procedures Performed Operation Date: 01/14/25 16:30 Actual Procedures p EGD Hemostasis - Errol Mccullough MD Diagnostic Imagining Performed 01/13/25 20:08 CT abd pelvis IV con only Stat CT angio chest PE protocol Stat 01/15/25 12:11 CT head/brain wo con Urgent Pending Results Patient Have Any Pending Studies at Discharge: Yes Discharge Instructions Given to Patient (Per Discharging Provider) Recheck CBC, BMP, longer-term prescription for Protonix sucralfate as needed Facilitate referral to gastroenterology for repeat endoscopy in 6 to 8 weeks Total Time Total Time Spent Total Time Spent (In Minutes): 40 minutes spent at the bedside discussing results and modifications to care plan with patient. Arrangements for prescription on discharge. Reviewing new medications, discharge planning and follow-up coordination Coding Level of Care Code 78344 INP/OBS DISCH >30 MIN Diagnoses Acute upper GI bleed K92.2 History of gastric ulcer Z87.11 Status post laparoscopic cholecystectomy Z90.49 Anemia D64.9
[2025-01-18 13:17] VITALS: BP 128/81
== END 2025-01-18 14:05 | disposition home or self-care (01) | DRG 378 ==
LOC: ED 17:41 → 2S 01-14 01:24 → SUATTDRO 01-14 01:24 → 2S 01-14 02:42 → 2N 01-16 18:38